=== PATIENT | male | born 1950 | race Caucasian/White ===

== ENCOUNTER 2018-11-27 16:38 | Inpatient (IN) ==
[2018-11-27] MEDS ORDERED: Dextrose 50% in Water 50 ML Vial IV.PUSH ONE (17:03)
--- NOTE | 2018-11-27 17:21 | XR ---
EXAM DATE: 11/27/2018 5:16 PM EST AGE/SEX: 68 years / Male INDICATIONS: Cough. CLINICAL DATA: This is the patient's initial encounter. Patient reports that signs and symptoms have been present for 1 day and indicates a pain score of 0/10. MEDICAL/SURGICAL HISTORY: Cirrhosis. Hepatitis C. Hypertension. Diabetes. None. COMPARISON: No prior exams available for comparison. FINDINGS: Frontal view of the chest demonstrate some patchy opacities in the retrocardiac region; cannot exclud e a nonconsolidative infiltrate. The right lung is clear. The heart is normal in size. Both hemidiaph ragms of the central bronchopulmonary markings are well delineated. CONCLUSION: Findings suggest nonconsolidative patchy infiltrates in the left lower lung. Electronically signed by: Georgi Yi MD Board Certified Radiologist 11/27/2018 5:20 PM EST
[2018-11-27 17:41] LABS: Baso # (Auto) 0.1 th/mm3 (0.0-0.2); Baso % (Auto) 0.6 % (0.0-2.0); Eos # (Auto) 0.2 th/mm3 (0.0-0.4); Eos % (Auto) 2.6 % (0.0-4.0); Hematocrit 35.1 % (39.0-51.0); Lymph # (Auto) 2.3 th/mm3 (1.0-4.8); Lymph % (Auto) 24.3 % (9.0-44.0); Mean Corpuscular Hemoglobin 36.8 pg (27.0-34.0); Mean Platelet Volume 10.8 fL (7.0-11.0); Mono # (Auto) 1.3 th/mm3 (0.0-0.9); Mono % (Auto) 14.1 % (0.0-8.0); Neut # (Auto) 5.5 th/mm3 (1.8-7.7); Neut % (Auto) 58.4 % (16.0-70.0); Platelet Count 105 th/mm3 (150-450); Red Blood Count 3.25 mil/mm3 (4.50-5.90); Red Cell Distribution Width 17.7 % (11.6-17.2); White Blood Count 9.4 th/mm3 (4.0-11.0)
--- NOTE | 2018-11-27 17:42 | US ---
EXAM DATE: 11/27/2018 5:40 PM EST AGE/SEX: 68 years / Male INDICATIONS: Bilateral leg swelling. CLINICAL DATA: This is the patient's initial encounter. Patient reports that signs and symptoms have been present for 4 - 6 days and indicates a pain score of 2/10. MEDICAL/SURGICAL HISTORY: Cirrhosis. Hepatitis C. Hypertension. Diabetes. None. COMPARISON: No prior exams available for comparison. TECHNIQUE: Venous ultrasound of both lower extremities was performed from the inguinal ligament to t he proximal calf. Real-time, color Doppler and spectral tracing, compression and augmentation techni ques were used. FINDINGS: Right Leg: Normal compression of the deep venous system from the inguinal region to the proximal michelle f. No echogenic clot is seen. Normal response of the venous system to augmentation and respiration. Left Leg: Normal compression of the deep venous system from the inguinal region to the proximal calf . No echogenic clot is seen. Normal response of the venous system to augmentation and respiration. Other: None. CONCLUSION: 1. The study is negative for bilateral lower extremity deep venous thrombosis. Electronically signed by: Georgi Yi MD Board Certified Radiologist 11/27/2018 5:41 PM EST
[2018-11-27 17:50] LABS: INR 1.2 Ratio; Prothrombin Time 12.3 sec (9.8-11.6)
[2018-11-27] MEDS ORDERED: Sodium Chlor 0.9% Inj 500 ML IV.SIG SCH (18:00)
--- NOTE | 2018-11-27 18:03 | CT ---
EXAM DATE: 11/27/2018 5:59 PM EST AGE/SEX: 68 years / Male INDICATIONS: Altered mental status CLINICAL DATA: This is the patient's initial encounter. Patient reports that signs and symptoms have been present for 1 day and indicates a pain score of 0/10. MEDICAL/SURGICAL HISTORY: Cirrhosis. Diabetes. Hepatitis C. Hypertension None. RADIATION DOSE: 39.32 CTDI (mGy) COMPARISON: No prior exams available for comparison. TECHNIQUE: CT of the head without contrast. Using automated exposure control and adjustment of the mA and/or kV according to patient size, radiation dose was kept as low as reasonably achievable to ob tain optimal diagnostic quality images. DICOM format image data is available electronically for revi ew and comparison. FINDINGS: Cerebrum: The ventricles are normal for age with mild atrophic change with sulcal and ventricular pr ominence. No evidence of midline shift, mass lesion, hemorrhage or acute infarction. No extraaxial f luid collections are seen. Posterior Fossa: The cerebellum and brainstem are intact. The 4th ventricle is midline. The cerebe llopontine angle is unremarkable. Extracranial: The visualized portion of the orbits is intact. Skull: The calvaria is intact. No evidence of skull fracture. CONCLUSION: 1. Negative exam with no evidence of hemorrhage or mass effect. . Electronically signed by: Girma Aldridge MD Board Certified Radiologist 11/27/2018 6:02 PM EST
[2018-11-27] MEDS ORDERED: Azithromycin Inj 500 MG in Sodium Chlor 0.9% Inj 250 ML IV.SIG ONE (18:08)
[2018-11-27 18:19] LABS: Alanine Aminotransferase 31 U/L (12-78); Albumin 2.3 g/dL (3.4-5.0); Anion Gap 12 meq/L (5-15); Aspartate Aminotransferase 20 U/L (15-37); Blood Urea Nitrogen 77 mg/dL (7-18); Calcium 8.1 mg/dL (8.5-10.1); Carbon Dioxide 20.8 meq/L (21.0-32.0); Chloride 109 meq/L (98-107); Glomerular Filtration Rate 11 mL/min (>89); Glucose,Random 123 mg/dL (74-106); Magnesium 2.8 mg/dL (1.5-2.5); Potassium 4.1 meq/L (3.5-5.1); Sodium 142 meq/L (136-145)
[2018-11-27 18:23] LABS: Alkaline Phosphatase 128 U/L (45-117); Total Protein 6.5 g/dL (6.4-8.2)
[2018-11-27 18:39] LABS: Thyroid Stimulating Hormone 4.03 uIU/mL (0.358-3.740)
[2018-11-27 19:10] LABS: Bacteria,Urine Rare /hpf; Bilirubin,Urine Negative (Negative); Clarity,Urine Clear (Clear); Color,Urine Yellow (Yellw/Straw); Glucose,Urine (UA) Negative (Negative); Leukocyte Esterase,Urine Negative (Negative); Nitrite,Urine Negative (Negative); Specific Gravity,Urine 1.008 (1.002-1.035); Squamous Epithelial Cell,Urine <1 /hpf (0-5)
[2018-11-27 19:19] LABS: Amphetamine Screen,Urine Neg (Neg); Barbiturate Screen,Urine Neg (Neg); Cannabinoid Screen,Urine Pos (Neg); Cocaine Screen,Urine Neg (Neg)
[2018-11-27 19:25] LABS: Opiate Screen,Urine Neg (Neg)
--- NOTE | 2018-11-27 19:27 | ED ---
HPI General Chief complaint: Diabetic Stated complaint: Diabetic/Confusion Time Seen by Provider: 11/27/18 16:42 Source: patient Mode of arrival: ambulatory Limitations: no limitations History of Present Illness HPI narrative: 68 male patient presents to ED for evaluation of altered mental status. His roommate found him unresponsive this afternoon. EMS was able to rouse him with a sternal rub and his blood glucose was 33. He was given an amp of D10 and half a peanut butter sandwich and his blood sugar went up to 139. He is a poor historian and was not able to answer all our questions. He states he has a history of hepatitis C, diabetes and cirrhosis but couldn't remember what medications he takes daily. He states he hasn't been eating regularly and that he smokes both cigarettes and marijuana but no longer drinks. He denies chest pain, nausea, vomiting, and shortness of breath. Denies any pain. Again history is very limited because the patient appears to be altered at this time. He did had a witnessed syncopal episode. Related Data Home Medications Medication Instructions Recorded Confirmed Unable to Obtain Home Meds 11/27/18 11/27/18 Allergies Allergy/AdvReac Type Severity Reaction Status Date / Time acetaminophen AdvReac Severe cirrhosis Verified 11/27/18 20:26 Review of Systems ROS: all other systems reviewed are negative [facility] Medical History Medical History Cirrhosis (Acute) Coronary artery disease (Acute) Diabetes (Acute) HTN (hypertension) (Acute) Hepatitis C (Acute) Surgical History Surgical History Status post hernia repair (Acute) Social History Social History Substance History: Active Abuse Second Hand Smoke Exposure: Yes Smoking Status: Current every day smoker Tobacco Type: Cigarettes How Often Do You Have a Drink Containing Alcohol: Never Recent Travel in [facility] within the Last 8 Weeks: No Recent Out of Country Travel within the Last 8 Weeks: No Immunization History Tetanus Immunization: <5 Years Exam Narrative Exam Narrative: gENERAL: Well-appearing in no distress. SKIN: Focused skin assessment warm/dry. HEAD: Atraumatic. Normocephalic. EYES: Pupils equal and round. No scleral icterus. No injection or drainage. ENT: No nasal bleeding or discharge. Mucous membranes pink and moist. Tongue is midline. No Uvula deviation. NECK: Trachea midline. No JVD. CARDIOVASCULAR: Regular rate and rhythm. No murmur appreciated. RESPIRATORY: No accessory muscle use. Clear to auscultation. Breath sounds equal bilaterally. GASTROINTESTINAL: Abdomen soft, non-tender, nondistended. Hepatic and splenic margins not palpable. MUSCULOSKELETAL: No obvious deformities. No clubbing. No cyanosis. No edema. NEUROLOGICAL: Awake and alert. No obvious cranial nerve deficits. Motor grossly within normal limits. Slowed speech. PSYCHIATRIC: Altered mood and affect; insight and judgment minimal. Course Initial Documented Vital Signs Pulse Rate 54 L 11/27/18 16:47 Respiratory Rate 16 11/27/18 16:47 Blood Pressure 155/109 H 11/27/18 16:47 Pulse Oximetry 100 11/27/18 16:47 Last Documented Vital Signs Temperature 97.7 F 11/29/18 16:00 Pulse Rate 72 11/29/18 16:00 Respiratory Rate 18 11/29/18 16:00 Blood Pressure 149/65 H 11/29/18 16:00 Pulse Oximetry 100 11/29/18 16:00 Medical Decision Making PEDRO Attestation PEDRO supervised visit: Yes Attestation: I, Dr. Guerrero, have reviewed the advance practice practitioner's documentation and am in agreement, met with the patient face to face, made the diagnosis, and the medical decision making was done by me. *My assessment and Findings: Hypoglycemia vs. hepatic encephalopathy vs. dehydration vs. electrolyte abnormality 68yo M with AMS. Found to be hypoglycemic and given amp of D10. Labs reviewed , no leukocytosis. H/H mildly decreased at 12/35.1. BUN/creatinine elevated at 77/5.37. Unknown baseline. Troponin negative. US showed negative DVT. CT brain negative. CXR showed patchy infiltrates in left lung. Pt given antibiotics. Ammonia elevated at 110. Pt given lactulose. UA showed WBC 3. Culture not indicated. Pt to be admitted for AMS secondary to hepatic encephalopathy and CAREN. MDM Narrative Medical decision making narrative: 68-year-old male who presents to the ED for evaluation of altered mental status. Patient was properly examined and was found to have signs and symptoms consistent with altered mental status. Labs and imaging ordered. Labs and imaging show what appears to be significant elevated ammonia as well as what appears to be kidney failure. Also possible pneumonia per chest x-ray. At this time patient will start antibiotics. Patient will be admitted for further evaluation and treatment. Patient was given fluids here. Patient was given lactulose as well. Case discussed with my attending Dr. Guerrero agrees with this plan. Case discussed with Dr. Louie who agrees admission to her service. Medical Screen Exam Complete: Yes Emergency Medical Condition: Yes Differential Diagnosis Differential Diagnosis: Altered mental status versus hepatic encephalopathy versus ACS versus electrolyte normality versus sepsis Medical Records Medical records reviewed: Yes I reviewed the patient's medical records. Lab Data Lab results reviewed: Yes I reviewed the patient's lab results. Result diagrams: 11/29/18 10:21 11/29/18 10:21 Lab Results 11/27/18 11/27/18 11/27/18 Range/Units 17:05 17:05 17:05 WBC (4.0-11.0) th/mm3 RBC (4.50-5.90) mil/mm3 Hgb (13.0-17.0) gm/dL Hct (39.0-51.0) % MCV (80.0-100.0) fL MCH (27.0-34.0) pg MCHC (32.0-36.0) % RDW (11.6-17.2) % Plt Count (150-450) th/mm3 MPV (7.0-11.0) fL Prelim Diff (Auto) Neut % (Auto) (16.0-70.0) % Lymph % (Auto) (9.0-44.0) % [place] % (Auto) (0.0-8.0) % Eos % (Auto) (0.0-4.0) % Baso % (Auto) (0.0-2.0) % Neut # (Auto) (1.8-7.7) th/mm3 Lymph # (Auto) (1.0-4.8) th/mm3 [place] # (Auto) (0.0-0.9) th/mm3 Eos # (Auto) (0.0-0.4) th/mm3 Baso # (Auto) (0.0-0.2) th/mm3 WBC Differential Diff Scan Differential Comment Toxic Granulation (None) Platelet Estimate (Normal) Platelet Morphology (Normal) PT 12.3 H (9.8-11.6) sec INR 1.2 Ratio Sodium (136-145) meq/L Potassium (3.5-5.1) meq/L Chloride (98-107) meq/L Carbon Dioxide (21.0-32.0) meq/L Anion Gap (5-15) meq/L BUN (7-18) mg/dL Creatinine (0.60-1.30) mg/dL Estimated GFR (>89) mL/min POC Glucose (68-110) mg/dl Random Glucose Cancelled Lactic Acid (0.4-2.0) mmol/L Calcium (8.5-10.1) mg/dL Phosphorus (2.5-4.9) mg/dL Magnesium (1.5-2.5) mg/dL Total Bilirubin (0.2-1.0) mg/dL AST (15-37) U/L ALT (12-78) U/L Alkaline Phosphatase (45-117) U/L Ammonia 110 H (11-32) mcmol/L Total Creatine Kinase 57 (39-308) U/L Troponin I (0.02-0.05) ng/mL B-Natriuretic Peptide (0-100) pg/mL Total Protein (6.4-8.2) g/dL Albumin (3.4-5.0) g/dL TSH 4.030 H (0.358-3.740) uIU/mL Urine Color (Yellw/Straw) Urine Clarity (Clear) Urine pH (5.0-8.5) Ur Specific [place] (1.002-1.035) Urine Protein (Neg-Trace) mg/dL Urine Glucose (UA) (Negative) mg/dL Urine Ketones (Negative) mg/dL Urine Occult Blood (Negative) Urine Nitrate (Negative) Urine Bilirubin (Negative) Urine Urobilinogen (Less than 2) mg/dL Ur Leukocyte Esterase (Negative) Urine RBC (0-3) /hpf Urine WBC (0-5) /hpf Ur Squamous Epith Cells (0-5) /hpf Urine Bacteria (None) /hpf Micro UA Comment Ur Microscopic Review Urine Culture Comments Urine Osmolality (300-1300) mosm/kg Ur Random Creatinine (27-300) mg/dL Ur Random Sodium meq/L Salicylates (2.8-20.0) mg/dL Urine Opiates Screen (Neg) Acetaminophen (10.0-30.0) mcg/mL Ur Barbiturates Screen (Neg) Ur Amphetamines Screen (Neg) U Benzodiazepines Scrn (Neg) Urine Cocaine Screen (Neg) U Cannabinoids Screen (Neg) Serum Alcohol (0-5) mg/dL Complement C3 (90-180) mg/dL Complement C4 (10-40) mg/dL 11/27/18 11/27/18 11/27/18 Range/Units 17:05 17:05 17:05 WBC 9.4 (4.0-11.0) th/mm3 RBC 3.25 L (4.50-5.90) mil/mm3 Hgb 12.0 L (13.0-17.0) gm/dL Hct 35.1 L (39.0-51.0) % MCV 108.0 H (80.0-100.0) fL MCH 36.8 H (27.0-34.0) pg MCHC 34.0 (32.0-36.0) % RDW 17.7 H (11.6-17.2) % Plt Count 105 L (150-450) th/mm3 MPV 10.8 (7.0-11.0) fL Prelim Diff (Auto) Neut % (Auto) 58.4 (16.0-70.0) % Lymph % (Auto) 24.3 (9.0-44.0) % [place] % (Auto) 14.1 H (0.0-8.0) % Eos % (Auto) 2.6 (0.0-4.0) % Baso % (Auto) 0.6 (0.0-2.0) % Neut # (Auto) 5.5 (1.8-7.7) th/mm3 Lymph # (Auto) 2.3 (1.0-4.8) th/mm3 [place] # (Auto) 1.3 H (0.0-0.9) th/mm3 Eos # (Auto) 0.2 (0.0-0.4) th/mm3 Baso # (Auto) 0.1 (0.0-0.2) th/mm3 WBC Differential . Diff Scan Differential Comment Auto diff final Toxic Granulation (None) Platelet Estimate (Normal) Platelet Morphology (Normal) PT (9.8-11.6) sec INR Ratio Sodium 142 (136-145) meq/L Potassium 4.1 (3.5-5.1) meq/L Chloride 109 H (98-107) meq/L Carbon Dioxide 20.8 L (21.0-32.0) meq/L Anion Gap 12 (5-15) meq/L BUN 77 H (7-18) mg/dL Creatinine 5.37 H (0.60-1.30) mg/dL Estimated GFR 11 L (>89) mL/min POC Glucose (68-110) mg/dl Random Glucose 123 H Lactic Acid (0.4-2.0) mmol/L Calcium 8.1 L (8.5-10.1) mg/dL Phosphorus (2.5-4.9) mg/dL Magnesium 2.8 H (1.5-2.5) mg/dL Total Bilirubin 1.5 H (0.2-1.0) mg/dL AST 20 (15-37) U/L ALT 31 (12-78) U/L Alkaline Phosphatase 128 H (45-117) U/L Ammonia (11-32) mcmol/L Total Creatine Kinase (39-308) U/L Troponin I Less than 0.02 L (0.02-0.05) ng/mL B-Natriuretic Peptide 168 H (0-100) pg/mL Total Protein 6.5 (6.4-8.2) g/dL Albumin 2.3 L (3.4-5.0) g/dL TSH (0.358-3.740) uIU/mL Urine Color (Yellw/Straw) Urine Clarity (Clear) Urine pH (5.0-8.5) Ur Specific [place] (1.002-1.035) Urine Protein (Neg-Trace) mg/dL Urine Glucose (UA) (Negative) mg/dL Urine Ketones (Negative) mg/dL Urine Occult Blood (Negative) Urine Nitrate (Negative) Urine Bilirubin (Negative) Urine Urobilinogen (Less than 2) mg/dL Ur Leukocyte Esterase (Negative) Urine RBC (0-3) /hpf Urine WBC (0-5) /hpf Ur Squamous Epith Cells (0-5) /hpf Urine Bacteria (None) /hpf Micro UA Comment Ur Microscopic Review Urine Culture Comments Urine Osmolality (300-1300) mosm/kg Ur Random Creatinine (27-300) mg/dL Ur Random Sodium meq/L Salicylates (2.8-20.0) mg/dL Urine Opiates Screen (Neg) Acetaminophen (10.0-30.0) mcg/mL Ur Barbiturates Screen (Neg) Ur Amphetamines Screen (Neg) U Benzodiazepines Scrn (Neg) Urine Cocaine Screen (Neg) U Cannabinoids Screen (Neg) Serum Alcohol (0-5) mg/dL Complement C3 (90-180) mg/dL Complement C4 (10-40) mg/dL 11/27/18 11/27/18 11/27/18 Range/Units 17:05 17:05 17:05 WBC (4.0-11.0) th/mm3 RBC (4.50-5.90) mil/mm3 Hgb (13.0-17.0) gm/dL Hct (39.0-51.0) % MCV (80.0-100.0) fL MCH (27.0-34.0) pg MCHC (32.0-36.0) % RDW (11.6-17.2) % Plt Count (150-450) th/mm3 MPV (7.0-11.0) fL Prelim Diff (Auto) Neut % (Auto) (16.0-70.0) % Lymph % (Auto) (9.0-44.0) % [place] % (Auto) (0.0-8.0) % Eos % (Auto) (0.0-4.0) % Baso % (Auto) (0.0-2.0) % Neut # (Auto) (1.8-7.7) th/mm3 Lymph # (Auto) (1.0-4.8) th/mm3 [place] # (Auto) (0.0-0.9) th/mm3 Eos # (Auto) (0.0-0.4) th/mm3 Baso # (Auto) (0.0-0.2) th/mm3 WBC Differential Diff Scan Differential Comment Toxic Granulation (None) Platelet Estimate (Normal) Platelet Morphology (Normal) PT (9.8-11.6) sec INR Ratio Sodium (136-145) meq/L Potassium (3.5-5.1) meq/L Chloride (98-107) meq/L Carbon Dioxide (21.0-32.0) meq/L Anion Gap (5-15) meq/L BUN (7-18) mg/dL Creatinine (0.60-1.30) mg/dL Estimated GFR (>89) mL/min POC Glucose (68-110) mg/dl Random Glucose Lactic Acid 1.7 (0.4-2.0) mmol/L Calcium (8.5-10.1) mg/dL Phosphorus (2.5-4.9) mg/dL Magnesium (1.5-2.5) mg/dL Total Bilirubin (0.2-1.0) mg/dL AST (15-37) U/L ALT (12-78) U/L Alkaline Phosphatase (45-117) U/L Ammonia (11-32) mcmol/L Total Creatine Kinase (39-308) U/L Troponin I (0.02-0.05) ng/mL B-Natriuretic Peptide (0-100) pg/mL Total Protein (6.4-8.2) g/dL Albumin (3.4-5.0) g/dL TSH (0.358-3.740) uIU/mL Urine Color (Yellw/Straw) Urine Clarity (Clear) Urine pH (5.0-8.5) Ur Specific [place] (1.002-1.035) Urine Protein (Neg-Trace) mg/dL Urine Glucose (UA) (Negative) mg/dL Urine Ketones (Negative) mg/dL Urine Occult Blood (Negative) Urine Nitrate (Negative) Urine Bilirubin (Negative) Urine Urobilinogen (Less than 2) mg/dL Ur Leukocyte Esterase (Negative) Urine RBC (0-3) /hpf Urine WBC (0-5) /hpf Ur Squamous Epith Cells (0-5) /hpf Urine Bacteria (None) /hpf Micro UA Comment Ur Microscopic Review Urine Culture Comments Urine Osmolality (300-1300) mosm/kg Ur Random Creatinine (27-300) mg/dL Ur Random Sodium meq/L Salicylates Less than 1.7 L (2.8-20.0) mg/dL Urine Opiates Screen (Neg) Acetaminophen Less than 2.0 L (10.0-30.0) mcg/mL Ur Barbiturates Screen (Neg) Ur Amphetamines Screen (Neg) U Benzodiazepines Scrn (Neg) Urine Cocaine Screen (Neg) U Cannabinoids Screen (Neg) Serum Alcohol Less than 3 (0-5) mg/dL Complement C3 (90-180) mg/dL Complement C4 (10-40) mg/dL 11/27/18 11/27/18 11/27/18 Range/Units 18:15 18:36 18:36 WBC (4.0-11.0) th/mm3 RBC (4.50-5.90) mil/mm3 Hgb (13.0-17.0) gm/dL Hct (39.0-51.0) % MCV (80.0-100.0) fL MCH (27.0-34.0) pg MCHC (32.0-36.0) % RDW (11.6-17.2) % Plt Count (150-450) th/mm3 MPV (7.0-11.0) fL Prelim Diff (Auto) Neut % (Auto) (16.0-70.0) % Lymph % (Auto) (9.0-44.0) % [place] % (Auto) (0.0-8.0) % Eos % (Auto) (0.0-4.0) % Baso % (Auto) (0.0-2.0) % Neut # (Auto) (1.8-7.7) th/mm3 Lymph # (Auto) (1.0-4.8) th/mm3 [place] # (Auto) (0.0-0.9) th/mm3 Eos # (Auto) (0.0-0.4) th/mm3 Baso # (Auto) (0.0-0.2) th/mm3 WBC Differential Diff Scan Differential Comment Toxic Granulation (None) Platelet Estimate (Normal) Platelet Morphology (Normal) PT (9.8-11.6) sec INR Ratio Sodium (136-145) meq/L Potassium (3.5-5.1) meq/L Chloride (98-107) meq/L Carbon Dioxide (21.0-32.0) meq/L Anion Gap (5-15) meq/L BUN (7-18) mg/dL Creatinine (0.60-1.30) mg/dL Estimated GFR (>89) mL/min POC Glucose 146 H (68-110) mg/dl Random Glucose Lactic Acid (0.4-2.0) mmol/L Calcium (8.5-10.1) mg/dL Phosphorus (2.5-4.9) mg/dL Magnesium (1.5-2.5) mg/dL Total Bilirubin (0.2-1.0) mg/dL AST (15-37) U/L ALT (12-78) U/L Alkaline Phosphatase (45-117) U/L Ammonia (11-32) mcmol/L Total Creatine Kinase (39-308) U/L Troponin I (0.02-0.05) ng/mL B-Natriuretic Peptide (0-100) pg/mL Total Protein (6.4-8.2) g/dL Albumin (3.4-5.0) g/dL TSH (0.358-3.740) uIU/mL Urine Color Yellow (Yellw/Straw) Urine Clarity Clear (Clear) Urine pH 6.0 (5.0-8.5) Ur Specific [place] 1.008 (1.002-1.035) Urine Protein Negative (Neg-Trace) mg/dL Urine Glucose (UA) Negative (Negative) mg/dL Urine Ketones Negative (Negative) mg/dL Urine Occult Blood Negative (Negative) Urine Nitrate Negative (Negative) Urine Bilirubin Negative (Negative) Urine Urobilinogen Less than 2 (Less than 2) mg/dL Ur Leukocyte Esterase Negative (Negative) Urine RBC 1 (0-3) /hpf Urine WBC 3 (0-5) /hpf Ur Squamous Epith Cells <1 (0-5) /hpf Urine Bacteria Rare H (None) /hpf Micro UA Comment Culture not ind Ur Microscopic Review Not Reportable Urine Culture Comments Culture not ind Urine Osmolality (300-1300) mosm/kg Ur Random Creatinine (27-300) mg/dL Ur Random Sodium meq/L Salicylates (2.8-20.0) mg/dL Urine Opiates Screen Neg (Neg) Acetaminophen (10.0-30.0) mcg/mL Ur Barbiturates Screen Neg (Neg) Ur Amphetamines Screen Neg (Neg) U Benzodiazepines Scrn Neg (Neg) Urine Cocaine Screen Neg (Neg) U Cannabinoids Screen Pos H (Neg) Serum Alcohol (0-5) mg/dL Complement C3 (90-180) mg/dL Complement C4 (10-40) mg/dL 11/27/18 11/28/18 11/28/18 Range/Units 20:16 02:06 06:00 WBC 7.9 (4.0-11.0) th/mm3 RBC 3.18 L (4.50-5.90) mil/mm3 Hgb 11.9 L (13.0-17.0) gm/dL Hct 34.6 L (39.0-51.0) % MCV 108.8 H (80.0-100.0) fL MCH 37.5 H (27.0-34.0) pg MCHC 34.4 (32.0-36.0) % RDW 18.0 H (11.6-17.2) % Plt Count 85 L (150-450) th/mm3 MPV 11.1 H (7.0-11.0) fL Prelim Diff (Auto) Board Hammer [employer] Neut % (Auto) 66.1 (16.0-70.0) % Lymph % (Auto) 22.3 (9.0-44.0) % [place] % (Auto) 9.8 H (0.0-8.0) % Eos % (Auto) 1.3 (0.0-4.0) % Baso % (Auto) 0.5 (0.0-2.0) % Neut # (Auto) 5.2 (1.8-7.7) th/mm3 Lymph # (Auto) 1.8 (1.0-4.8) th/mm3 [place] # (Auto) 0.8 (0.0-0.9) th/mm3 Eos # (Auto) 0.1 (0.0-0.4) th/mm3 Baso # (Auto) 0.0 (0.0-0.2) th/mm3 WBC Differential . Diff Scan Differential Comment Auto diff final Toxic Granulation (None) Platelet Estimate (Normal) Platelet Morphology (Normal) PT (9.8-11.6) sec INR Ratio Sodium (136-145) meq/L Potassium (3.5-5.1) meq/L Chloride (98-107) meq/L Carbon Dioxide (21.0-32.0) meq/L Anion Gap (5-15) meq/L BUN (7-18) mg/dL Creatinine (0.60-1.30) mg/dL Estimated GFR (>89) mL/min POC Glucose 167 H 118 H (68-110) mg/dl Random Glucose Lactic Acid (0.4-2.0) mmol/L Calcium (8.5-10.1) mg/dL Phosphorus (2.5-4.9) mg/dL Magnesium (1.5-2.5) mg/dL Total Bilirubin (0.2-1.0) mg/dL AST (15-37) U/L ALT (12-78) U/L Alkaline Phosphatase (45-117) U/L Ammonia (11-32) mcmol/L Total Creatine Kinase (39-308) U/L Troponin I (0.02-0.05) ng/mL B-Natriuretic Peptide (0-100) pg/mL Total Protein (6.4-8.2) g/dL Albumin (3.4-5.0) g/dL TSH (0.358-3.740) uIU/mL Urine Color (Yellw/Straw) Urine Clarity (Clear) Urine pH (5.0-8.5) Ur Specific [place] (1.002-1.035) Urine Protein (Neg-Trace) mg/dL Urine Glucose (UA) (Negative) mg/dL Urine Ketones (Negative) mg/dL Urine Occult Blood (Negative) Urine Nitrate (Negative) Urine Bilirubin (Negative) Urine Urobilinogen (Less than 2) mg/dL Ur Leukocyte Esterase (Negative) Urine RBC (0-3) /hpf Urine WBC (0-5) /hpf Ur Squamous Epith Cells (0-5) /hpf Urine Bacteria (None) /hpf Micro UA Comment Ur Microscopic Review Urine Culture Comments Urine Osmolality (300-1300) mosm/kg Ur Random Creatinine (27-300) mg/dL Ur Random Sodium meq/L Salicylates (2.8-20.0) mg/dL Urine Opiates Screen (Neg) Acetaminophen (10.0-30.0) mcg/mL Ur Barbiturates Screen (Neg) Ur Amphetamines Screen (Neg) U Benzodiazepines Scrn (Neg) Urine Cocaine Screen (Neg) U Cannabinoids Screen (Neg) Serum Alcohol (0-5) mg/dL Complement C3 (90-180) mg/dL Complement C4 (10-40) mg/dL 11/28/18 11/28/18 11/28/18 Range/Units 06:00 07:45 12:21 WBC (4.0-11.0) th/mm3 RBC (4.50-5.90) mil/mm3 Hgb (13.0-17.0) gm/dL Hct (39.0-51.0) % MCV (80.0-100.0) fL MCH (27.0-34.0) pg MCHC (32.0-36.0) % RDW (11.6-17.2) % Plt Count (150-450) th/mm3 MPV (7.0-11.0) fL Prelim Diff (Auto) Neut % (Auto) (16.0-70.0) % Lymph % (Auto) (9.0-44.0) % [place] % (Auto) (0.0-8.0) % Eos % (Auto) (0.0-4.0) % Baso % (Auto) (0.0-2.0) % Neut # (Auto) (1.8-7.7) th/mm3 Lymph # (Auto) (1.0-4.8) th/mm3 [place] # (Auto) (0.0-0.9) th/mm3 Eos # (Auto) (0.0-0.4) th/mm3 Baso # (Auto) (0.0-0.2) th/mm3 WBC Differential Diff Scan Differential Comment Toxic Granulation (None) Platelet Estimate (Normal) Platelet Morphology (Normal) PT (9.8-11.6) sec INR Ratio Sodium 144 (136-145) meq/L Potassium 4.4 (3.5-5.1) meq/L Chloride 112 H (98-107) meq/L Carbon Dioxide 20.7 L (21.0-32.0) meq/L Anion Gap 11 (5-15) meq/L BUN 76 H (7-18) mg/dL Creatinine 5.22 H (0.60-1.30) mg/dL Estimated GFR 11 L (>89) mL/min POC Glucose 70 (68-110) mg/dl Random Glucose 69 L Lactic Acid (0.4-2.0) mmol/L Calcium 8.4 L (8.5-10.1) mg/dL Phosphorus (2.5-4.9) mg/dL Magnesium (1.5-2.5) mg/dL Total Bilirubin 1.4 H (0.2-1.0) mg/dL AST 18 (15-37) U/L ALT 28 (12-78) U/L Alkaline Phosphatase 117 (45-117) U/L Ammonia 100 H (11-32) mcmol/L Total Creatine Kinase (39-308) U/L Troponin I (0.02-0.05) ng/mL B-Natriuretic Peptide (0-100) pg/mL Total Protein 6.0 L (6.4-8.2) g/dL Albumin 2.0 L (3.4-5.0) g/dL TSH (0.358-3.740) uIU/mL Urine Color (Yellw/Straw) Urine Clarity (Clear) Urine pH (5.0-8.5) Ur Specific [place] (1.002-1.035) Urine Protein (Neg-Trace) mg/dL Urine Glucose (UA) (Negative) mg/dL Urine Ketones (Negative) mg/dL Urine Occult Blood (Negative) Urine Nitrate (Negative) Urine Bilirubin (Negative) Urine Urobilinogen (Less than 2) mg/dL Ur Leukocyte Esterase (Negative) Urine RBC (0-3) /hpf Urine WBC (0-5) /hpf Ur Squamous Epith Cells (0-5) /hpf Urine Bacteria (None) /hpf Micro UA Comment Ur Microscopic Review Urine Culture Comments Urine Osmolality (300-1300) mosm/kg Ur Random Creatinine (27-300) mg/dL Ur Random Sodium meq/L Salicylates (2.8-20.0) mg/dL Urine Opiates Screen (Neg) Acetaminophen (10.0-30.0) mcg/mL Ur Barbiturates Screen (Neg) Ur Amphetamines Screen (Neg) U Benzodiazepines Scrn (Neg) Urine Cocaine Screen (Neg) U Cannabinoids Screen (Neg) Serum Alcohol (0-5) mg/dL Complement C3 (90-180) mg/dL Complement C4 (10-40) mg/dL 11/28/18 11/28/18 11/28/18 Range/Units 12:56 16:10 16:10 WBC (4.0-11.0) th/mm3 RBC (4.50-5.90) mil/mm3 Hgb (13.0-17.0) gm/dL Hct (39.0-51.0) % MCV (80.0-100.0) fL MCH (27.0-34.0) pg MCHC (32.0-36.0) % RDW (11.6-17.2) % Plt Count (150-450) th/mm3 MPV (7.0-11.0) fL Prelim Diff (Auto) Neut % (Auto) (16.0-70.0) % Lymph % (Auto) (9.0-44.0) % [place] % (Auto) (0.0-8.0) % Eos % (Auto) (0.0-4.0) % Baso % (Auto) (0.0-2.0) % Neut # (Auto) (1.8-7.7) th/mm3 Lymph # (Auto) (1.0-4.8) th/mm3 [place] # (Auto) (0.0-0.9) th/mm3 Eos # (Auto) (0.0-0.4) th/mm3 Baso # (Auto) (0.0-0.2) th/mm3 WBC Differential Diff Scan Differential Comment Toxic Granulation (None) Platelet Estimate (Normal) Platelet Morphology (Normal) PT (9.8-11.6) sec INR Ratio Sodium (136-145) meq/L Potassium (3.5-5.1) meq/L Chloride (98-107) meq/L Carbon Dioxide (21.0-32.0) meq/L Anion Gap (5-15) meq/L BUN (7-18) mg/dL Creatinine (0.60-1.30) mg/dL Estimated GFR (>89) mL/min POC Glucose 255 H (68-110) mg/dl Random Glucose Lactic Acid (0.4-2.0) mmol/L Calcium (8.5-10.1) mg/dL Phosphorus (2.5-4.9) mg/dL Magnesium (1.5-2.5) mg/dL Total Bilirubin (0.2-1.0) mg/dL AST (15-37) U/L ALT (12-78) U/L Alkaline Phosphatase (45-117) U/L Ammonia (11-32) mcmol/L Total Creatine Kinase (39-308) U/L Troponin I (0.02-0.05) ng/mL B-Natriuretic Peptide (0-100) pg/mL Total Protein (6.4-8.2) g/dL Albumin (3.4-5.0) g/dL TSH (0.358-3.740) uIU/mL Urine Color (Yellw/Straw) Urine Clarity (Clear) Urine pH (5.0-8.5) Ur Specific [place] (1.002-1.035) Urine Protein (Neg-Trace) mg/dL Urine Glucose (UA) (Negative) mg/dL Urine Ketones (Negative) mg/dL Urine Occult Blood (Negative) Urine Nitrate (Negative) Urine Bilirubin (Negative) Urine Urobilinogen (Less than 2) mg/dL Ur Leukocyte Esterase (Negative) Urine RBC (0-3) /hpf Urine WBC (0-5) /hpf Ur Squamous Epith Cells (0-5) /hpf Urine Bacteria (None) /hpf Micro UA Comment Ur Microscopic Review Urine Culture Comments Urine Osmolality 359 (300-1300) mosm/kg Ur Random Creatinine 128 (27-300) mg/dL Ur Random Sodium 7 meq/L Salicylates (2.8-20.0) mg/dL Urine Opiates Screen (Neg) Acetaminophen (10.0-30.0) mcg/mL Ur Barbiturates Screen (Neg) Ur Amphetamines Screen (Neg) U Benzodiazepines Scrn (Neg) Urine Cocaine Screen (Neg) U Cannabinoids Screen (Neg) Serum Alcohol (0-5) mg/dL Complement C3 (90-180) mg/dL Complement C4 (10-40) mg/dL 11/28/18 11/28/18 11/29/18 Range/Units 16:15 20:15 03:10 WBC (4.0-11.0) th/mm3 RBC (4.50-5.90) mil/mm3 Hgb (13.0-17.0) gm/dL Hct (39.0-51.0) % MCV (80.0-100.0) fL MCH (27.0-34.0) pg MCHC (32.0-36.0) % RDW (11.6-17.2) % Plt Count (150-450) th/mm3 MPV (7.0-11.0) fL Prelim Diff (Auto) Neut % (Auto) (16.0-70.0) % Lymph % (Auto) (9.0-44.0) % [place] % (Auto) (0.0-8.0) % Eos % (Auto) (0.0-4.0) % Baso % (Auto) (0.0-2.0) % Neut # (Auto) (1.8-7.7) th/mm3 Lymph # (Auto) (1.0-4.8) th/mm3 [place] # (Auto) (0.0-0.9) th/mm3 Eos # (Auto) (0.0-0.4) th/mm3 Baso # (Auto) (0.0-0.2) th/mm3 WBC Differential Diff Scan Differential Comment Toxic Granulation (None) Platelet Estimate (Normal) Platelet Morphology (Normal) PT (9.8-11.6) sec INR Ratio Sodium (136-145) meq/L Potassium (3.5-5.1) meq/L Chloride (98-107) meq/L Carbon Dioxide (21.0-32.0) meq/L Anion Gap (5-15) meq/L BUN (7-18) mg/dL Creatinine (0.60-1.30) mg/dL Estimated GFR (>89) mL/min POC Glucose 89 170 H 111 H (68-110) mg/dl Random Glucose Lactic Acid (0.4-2.0) mmol/L Calcium (8.5-10.1) mg/dL Phosphorus (2.5-4.9) mg/dL Magnesium (1.5-2.5) mg/dL Total Bilirubin (0.2-1.0) mg/dL AST (15-37) U/L ALT (12-78) U/L Alkaline Phosphatase (45-117) U/L Ammonia (11-32) mcmol/L Total Creatine Kinase (39-308) U/L Troponin I (0.02-0.05) ng/mL B-Natriuretic Peptide (0-100) pg/mL Total Protein (6.4-8.2) g/dL Albumin (3.4-5.0) g/dL TSH (0.358-3.740) uIU/mL Urine Color (Yellw/Straw) Urine Clarity (Clear) Urine pH (5.0-8.5) Ur Specific [place] (1.002-1.035) Urine Protein (Neg-Trace) mg/dL Urine Glucose (UA) (Negative) mg/dL Urine Ketones (Negative) mg/dL Urine Occult Blood (Negative) Urine Nitrate (Negative) Urine Bilirubin (Negative) Urine Urobilinogen (Less than 2) mg/dL Ur Leukocyte Esterase (Negative) Urine RBC (0-3) /hpf Urine WBC (0-5) /hpf Ur Squamous Epith Cells (0-5) /hpf Urine Bacteria (None) /hpf Micro UA Comment Ur Microscopic Review Urine Culture Comments Urine Osmolality (300-1300) mosm/kg Ur Random Creatinine (27-300) mg/dL Ur Random Sodium meq/L Salicylates (2.8-20.0) mg/dL Urine Opiates Screen (Neg) Acetaminophen (10.0-30.0) mcg/mL Ur Barbiturates Screen (Neg) Ur Amphetamines Screen (Neg) U Benzodiazepines Scrn (Neg) Urine Cocaine Screen (Neg) U Cannabinoids Screen (Neg) Serum Alcohol (0-5) mg/dL Complement C3 (90-180) mg/dL Complement C4 (10-40) mg/dL 11/29/18 11/29/18 11/29/18 Range/Units 07:29 10:21 10:21 WBC 10.0 (4.0-11.0) th/mm3 RBC 2.79 L (4.50-5.90) mil/mm3 Hgb 10.4 L (13.0-17.0) gm/dL Hct 30.2 L (39.0-51.0) % MCV 108.3 H (80.0-100.0) fL MCH 37.3 H (27.0-34.0) pg MCHC 34.5 (32.0-36.0) % RDW 17.8 H (11.6-17.2) % Plt Count 88 L (150-450) th/mm3 MPV 10.6 (7.0-11.0) fL Prelim Diff (Auto) Slide review pending Neut % (Auto) 68.3 (16.0-70.0) % Lymph % (Auto) 22.7 (9.0-44.0) % [place] % (Auto) 7.7 (0.0-8.0) % Eos % (Auto) 0.9 (0.0-4.0) % Baso % (Auto) 0.4 (0.0-2.0) % Neut # (Auto) 6.8 (1.8-7.7) th/mm3 Lymph # (Auto) 2.3 (1.0-4.8) th/mm3 [place] # (Auto) 0.8 (0.0-0.9) th/mm3 Eos # (Auto) 0.1 (0.0-0.4) th/mm3 Baso # (Auto) 0.0 (0.0-0.2) th/mm3 WBC Differential . Diff Scan Auto diff confirmed Differential Comment . Toxic Granulation 1+ H (None) Platelet Estimate Low L (Normal) Platelet Morphology Enlarged H (Normal) PT (9.8-11.6) sec INR Ratio Sodium 144 (136-145) meq/L Potassium 3.9 (3.5-5.1) meq/L Chloride 112 H (98-107) meq/L Carbon Dioxide 18.8 L (21.0-32.0) meq/L Anion Gap 13 (5-15) meq/L BUN 77 H (7-18) mg/dL Creatinine 5.54 H (0.60-1.30) mg/dL Estimated GFR 10 L (>89) mL/min POC Glucose 90 (68-110) mg/dl Random Glucose 134 H Lactic Acid (0.4-2.0) mmol/L Calcium 7.8 L (8.5-10.1) mg/dL Phosphorus 5.8 H (2.5-4.9) mg/dL Magnesium (1.5-2.5) mg/dL Total Bilirubin (0.2-1.0) mg/dL AST (15-37) U/L ALT (12-78) U/L Alkaline Phosphatase (45-117) U/L Ammonia (11-32) mcmol/L Total Creatine Kinase 101 (39-308) U/L Troponin I (0.02-0.05) ng/mL B-Natriuretic Peptide (0-100) pg/mL Total Protein (6.4-8.2) g/dL Albumin 2.1 L (3.4-5.0) g/dL TSH (0.358-3.740) uIU/mL Urine Color (Yellw/Straw) Urine Clarity (Clear) Urine pH (5.0-8.5) Ur Specific [place] (1.002-1.035) Urine Protein (Neg-Trace) mg/dL Urine Glucose (UA) (Negative) mg/dL Urine Ketones (Negative) mg/dL Urine Occult Blood (Negative) Urine Nitrate (Negative) Urine Bilirubin (Negative) Urine Urobilinogen (Less than 2) mg/dL Ur Leukocyte Esterase (Negative) Urine RBC (0-3) /hpf Urine WBC (0-5) /hpf Ur Squamous Epith Cells (0-5) /hpf Urine Bacteria (None) /hpf Micro UA Comment Ur Microscopic Review Urine Culture Comments Urine Osmolality (300-1300) mosm/kg Ur Random Creatinine (27-300) mg/dL Ur Random Sodium meq/L Salicylates (2.8-20.0) mg/dL Urine Opiates Screen (Neg) Acetaminophen (10.0-30.0) mcg/mL Ur Barbiturates Screen (Neg) Ur Amphetamines Screen (Neg) U Benzodiazepines Scrn (Neg) Urine Cocaine Screen (Neg) U Cannabinoids Screen (Neg) Serum Alcohol (0-5) mg/dL Complement C3 46 L (90-180) mg/dL Complement C4 16 (10-40) mg/dL 11/29/18 11/29/18 11/29/18 Range/Units 10:21 12:15 16:19 WBC (4.0-11.0) th/mm3 RBC (4.50-5.90) mil/mm3 Hgb (13.0-17.0) gm/dL Hct (39.0-51.0) % MCV (80.0-100.0) fL MCH (27.0-34.0) pg MCHC (32.0-36.0) % RDW (11.6-17.2) % Plt Count (150-450) th/mm3 MPV (7.0-11.0) fL Prelim Diff (Auto) Neut % (Auto) (16.0-70.0) % Lymph % (Auto) (9.0-44.0) % [place] % (Auto) (0.0-8.0) % Eos % (Auto) (0.0-4.0) % Baso % (Auto) (0.0-2.0) % Neut # (Auto) (1.8-7.7) th/mm3 Lymph # (Auto) (1.0-4.8) th/mm3 [place] # (Auto) (0.0-0.9) th/mm3 Eos # (Auto) (0.0-0.4) th/mm3 Baso # (Auto) (0.0-0.2) th/mm3 WBC Differential Diff Scan Differential Comment Toxic Granulation (None) Platelet Estimate (Normal) Platelet Morphology (Normal) PT (9.8-11.6) sec INR Ratio Sodium Cancelled (136-145) meq/L Potassium Cancelled (3.5-5.1) meq/L Chloride Cancelled (98-107) meq/L Carbon Dioxide Cancelled (21.0-32.0) meq/L Anion Gap Cancelled (5-15) meq/L BUN Cancelled (7-18) mg/dL Creatinine Cancelled (0.60-1.30) mg/dL Estimated GFR Cancelled (>89) mL/min POC Glucose 154 H 146 H (68-110) mg/dl Random Glucose Cancelled Lactic Acid (0.4-2.0) mmol/L Calcium Cancelled (8.5-10.1) mg/dL Phosphorus (2.5-4.9) mg/dL Magnesium (1.5-2.5) mg/dL Total Bilirubin (0.2-1.0) mg/dL AST (15-37) U/L ALT (12-78) U/L Alkaline Phosphatase (45-117) U/L Ammonia (11-32) mcmol/L Total Creatine Kinase (39-308) U/L Troponin I (0.02-0.05) ng/mL B-Natriuretic Peptide (0-100) pg/mL Total Protein (6.4-8.2) g/dL Albumin (3.4-5.0) g/dL TSH (0.358-3.740) uIU/mL Urine Color (Yellw/Straw) Urine Clarity (Clear) Urine pH (5.0-8.5) Ur Specific [place] (1.002-1.035) Urine Protein (Neg-Trace) mg/dL Urine Glucose (UA) (Negative) mg/dL Urine Ketones (Negative) mg/dL Urine Occult Blood (Negative) Urine Nitrate (Negative) Urine Bilirubin (Negative) Urine Urobilinogen (Less than 2) mg/dL Ur Leukocyte Esterase (Negative) Urine RBC (0-3) /hpf Urine WBC (0-5) /hpf Ur Squamous Epith Cells (0-5) /hpf Urine Bacteria (None) /hpf Micro UA Comment Ur Microscopic Review Urine Culture Comments Urine Osmolality (300-1300) mosm/kg Ur Random Creatinine (27-300) mg/dL Ur Random Sodium meq/L Salicylates (2.8-20.0) mg/dL Urine Opiates Screen (Neg) Acetaminophen (10.0-30.0) mcg/mL Ur Barbiturates Screen (Neg) Ur Amphetamines Screen (Neg) U Benzodiazepines Scrn (Neg) Urine Cocaine Screen (Neg) U Cannabinoids Screen (Neg) Serum Alcohol (0-5) mg/dL Complement C3 (90-180) mg/dL Complement C4 (10-40) mg/dL Imaging Data Attestation: I personally reviewed and interpreted this imaging study as follows : Radiologist's impression: Chest X-Ray 11/27/18 17:00 CONCLUSION: Findings suggest nonconsolidative patchy infiltrates in the left lower lung. Head CT 11/27/18 17:00 CONCLUSION: 1. Negative exam with no evidence of hemorrhage or mass effect. . Venous Doppler Study 11/27/18 17:03 CONCLUSION: 1. The study is negative for bilateral lower extremity deep venous thrombosis. Abdomen Ultrasound 11/28/18 00:00 CONCLUSION: 1. Cirrhotic liver with splenorenal shunt. 2. Cholelithiasis. 3. Hepatic and pancreatic cysts. ECG Data Attestation: I personally reviewed and interpreted this ECG as follows: Interpretation: EKG shows sinus rhythm with a ventricular rate of 67 bpm, IA interval of 187 ms. No sign of acute ST elevation read by me and attending. Discharge Plan Discharge Disposition Patient Disposition: ED Admit(ED Internal Use Only) Discharge Order Discharge Orders: ED Use Only Admit Order (Routine); Ordered 11/27/18 Ordered By: Toby Diehl Discharge Details Diagnosis: Acute alteration in mental status, Acute kidney failure, Acute hepatic encephalopathy, Pneumonia Physicians Team ED Provider: Stephanie Guerrero ED Midlevel Provider: Toby Diehl Primary Care Provider: Annamaria Vidal Attending Provider: Magui Valderrama Other Providers: Jaya Lake ; Albaro Lisa Status ED Status: Left Department Discharge Information Discharge Date/Time: 11/27/18 21:38
[2018-11-27] MEDS ORDERED: Sod Chloride 0.9% Inj 1,000 ML IV.CONT SCH (20:15)
--- NOTE | 2018-11-27 20:33 | P.HPIM ---
History of Present Illness Primary Care Physician: Annamaria Vidal MD 68-year-old male with a past medical history significant for hepatitis C status post treatment (patient is unsure of which treatment he completed), diabetes mellitus, coronary artery disease and alcoholic cirrhosis to the emergency department for the evaluation of altered mental status and syncope. According to ED documentation the patient's roommate found him unresponsive this afternoon. EMS was able to arouse the patient was sternal rub and his blood glucose was found to be 33. The patient is a poor historian and cannot provide much history however states that he passed out earlier today and prior to that he "felt sick." He reports he has not had any alcohol for the past 15 years but used to be a very heavy drinker. He also complains of abdominal pain and increasing girth that started yesterday. The chest pain or shortness of breath. No fever/chills. No nausea/vomiting/diarrhea. No focal neurologic deficits. Inpatient Certification Inpatient Certification: I certify that the inpatient services were ordered in accordance with Medicare regulations governing the order. This includes certification that hospital inpatient services are reasonable and necessary and in the case of services not specified as inpatient-only under 42 CFR 419.22(n), that they are appropriately provided as inpatient services in accordance to with the 2-midnight benchmark under 43 CFR 412.3(e) Estimated Total Length of Stay (Days): 2 Plans for Post Hospital Care: Not yet determined Review of Systems Review of Systems: all other systems reviewed are negative [facility] Medical History Medical History Cirrhosis (Acute) Coronary artery disease (Acute) Diabetes (Acute) HTN (hypertension) (Acute) Hepatitis C (Acute) Surgical History Surgical History Status post hernia repair (Acute) Family History Family History Other Coronary artery disease Social History Social History Substance History: No History of Abuse Second Hand Smoke Exposure: No Smoking Status: Current every day smoker Tobacco Type: Cigarettes How Often Do You Have a Drink Containing Alcohol: Never Recent Travel in [facility] within the Last 8 Weeks: No Recent Out of Country Travel within the Last 8 Weeks: No Immunization History Tetanus Immunization: <5 Years Medications and Allergies Allergies Allergy/AdvReac Type Severity Reaction Status Date / Time acetaminophen AdvReac Severe cirrhosis Verified 11/27/18 20:26 Active Medications: Active Medications Sodium Chloride (Ns Inj) 1,000 mls @ 100 mls/hr IV.CONT .Q10H RACHEL Ondansetron HCl (Zofran Inj) 4 mg IV.PUSH Q6H PRN PRN Reason: NAUSEA OR VOMITING Sodium Chloride (Ns Flush) 2 ml IV.FLUSH BID RACHEL Sodium Chloride (Ns Flush) 2 ml IV.FLUSH PRN PRN PRN Reason: FLUSH AFTER USING IV ACCESS Physical Exam Vital signs: Vital Signs 11/27/18 16:47 11/27/18 20:18 Pulse Rate 54 L 63 Respiratory Rate 16 16 Blood Pressure 155/109 H 124/58 L Pulse Oximetry 100 100 Intake & Output 11/27/18 11/27/18 11/28/18 06:59 18:59 06:59 Intake Total 600 / 600 250 / 250 Balance 600 / 600 250 / 250 Weight 112.491 kg Intake: IV 600 / 600 250 / 250 Azithromycin Inj 500 MG In NS 250 / 250 Inj 250 ML @ 250 mls/hr IV.SIG ONCE ONE Rx#:[id number] NS Inj 500 ML @ 1000 mls/hr IV. 500 / 500 SIG BOLUS RACHEL Rx#:[id number] Rocephin Inj 1,000 MG In NS Inj 100 / 100 100 ML @ 200 mls/hr IV.SIG ONCE ONE Rx#:[id number] Narrative: Gen.: No acute distress Head: Normocephalic. Atraumatic. EENT: Pupils equal round and reactive to light. Nose without drainage. Airway intact. Throat without injection. Cardiovascular: Regular rate and rhythm. No murmurs, rubs or gallops. Respiratory: Lungs clear to auscultation bilaterally. No wheezes or rhonchi. Abdomen: Soft, nontender, positive distention. No peritoneal signs. Musculoskeletal: No gross deformities. 2+ pedal edema. Skin: No obvious rashes or erythema. Neuro: Sensory and motor grossly intact. Cranial nerves II through XII grossly intact. Results Labs CBC & Chem 7: 11/27/18 17:05 11/27/18 17:05 Imaging Impressions Chest X-Ray 11/27/18 17:00 CONCLUSION: Findings suggest nonconsolidative patchy infiltrates in the left lower lung. Head CT 11/27/18 17:00 CONCLUSION: 1. Negative exam with no evidence of hemorrhage or mass effect. . Venous Doppler Study 11/27/18 17:03 CONCLUSION: 1. The study is negative for bilateral lower extremity deep venous thrombosis. Caprini VTE Risk Assessment Caprini VTE Risk Assessment: Moderate/High Risk (score >= 2) Caprini Risk Assessment Model: Point Value = 1 Point Value = 2 Point Value = 3 Point Value = 5 Age 41-60 Minor surgery BMI > 25 kg/m2 Swollen legs Varicose veins or History of unexplained or recurrent spontaneous Oral contraceptives or hormone replacement Sepsis (< 1 month) Serious lung disease, including pneumonia (< 1 month) Abnormal pulmonary function Acute myocardial infarction Congestive heart failure (< 1 month) History of inflammatory bowel disease Medical patient at bed rest Age 61-74 Arthroscopic surgery Major open surgery (> 45 min) Laparoscopic surgery (> 45 min) Malignancy Confined to bed (> 72 hours) Immobilizing plaster cast Central venous access Age >= 75 History of VTE Family history of VTE Factor V Leiden Prothrombin [id number] Lupus anticoagulant Anticardiolipin antibodies Elevated serum homocysteine Heparin-induced thrombocytopenia Other congenital or acquired thrombophilia Stroke (< 1 month) Elective arthroplasty Hip, pelvis, or leg fracture Acute spinal cord injury (< 1 month) Prophylaxis Regimen: Total Risk Factor Score Risk Level Prophylaxis Regimen 0-1 Low Early ambulation 2 Moderate Order ONE of the following: *Sequential Compression Device (SCD) *Heparin 5000 units SQ BID 3-4 Higher Order ONE of the following medications: *Heparin 5000 units SQ TID *Enoxaparin/Lovenox 40 mg SQ daily (WT < 150 kg, CrCl > 30 mL/min) *Enoxaparin/Lovenox 30 mg SQ daily (WT < 150 kg, CrCl > 10-29 mL/min) *Enoxaparin/Lovenox 30 mg SQ BID (WT < 150 kg, CrCl > 30 mL/min) AND/OR *Sequential Compression Device (SCD) 5 or more Highest Order ONE of the following medications: *Heparin 5000 units SQ TID (Preferred with Epidurals) *Enoxaparin/Lovenox 40 mg SQ daily (WT < 150 kg, CrCl > 30 mL/min) *Enoxaparin/Lovenox 30 mg SQ daily (WT < 150 kg, CrCl > 10-29 mL/min) *Enoxaparin/Lovenox 30 mg SQ BID (WT < 150 kg, CrCl > 30 mL/min) AND *Sequential Compression Device (SCD) Assessment and Plan Plan Assessment/plan: 1. Altered mental status/hypoglycemia/hyperammonemia/cirrhosis Head CT negative for acute process Drug screen, alcohol level, salicylate level and acetaminophen level pending Patient's blood glucose was found to be 33 on scene by EMS, status post D10 and food now 167. Monitor Ammonia 110 Patient reports he is supposed to be on multiple medications and states that he takes them although he does not know what they are Lactulose Repeat NH4 tomorrow 2. Acute renal failure BUN 77, creatinine 5.37 Patient with no history of kidney disease Renal ultrasound pending Nephrology consulted Status post 1 L IV fluids in the emergency department, patient appears volume overloaded - appreciate nephrology input 3. Abdominal pain/ascites Abdominal ultrasound pending to evaluate for ascites Patient may require paracentesis 4. PNA Chest x-ray significant for non-consolidative patchy infiltrates in the left lower lung Azithromycin and Rocephin DuoNebs 5. Diabetes mellitus Hypoglycemia as above Q. 6-hour Accu-Cheks Start sliding scale insulin if patient becomes hyperglycemic 6. Coronary artery disease/hypertension Normotensive Unknown home medications Resume once reconciled 7. Hepatitis C Patient reports he is status post 6 different treatments for hepatitis C Follow up as outpatient FEN N.p.o. Electrolytes: Replete as needed Holding pharmacologic anticoagulation for possible paracentesis
[2018-11-27] MEDS ORDERED: Dextrose 50% in Water 50 ML Vial IV.PUSH PRN (20:34)
[2018-11-28 07:01] LABS: Baso % (Auto) 0.5 % (0.0-2.0); Eos # (Auto) 0.1 th/mm3 (0.0-0.4); Eos % (Auto) 1.3 % (0.0-4.0); Hematocrit 34.6 % (39.0-51.0); Hemoglobin 11.9 gm/dL (13.0-17.0); Lymph # (Auto) 1.8 th/mm3 (1.0-4.8); Lymph % (Auto) 22.3 % (9.0-44.0); Mean Corpuscular HGB Conc 34.4 % (32.0-36.0); Mean Corpuscular Hemoglobin 37.5 pg (27.0-34.0); Mean Corpuscular Volume 108.8 fL (80.0-100.0); Mean Platelet Volume 11.1 fL (7.0-11.0); Mono # (Auto) 0.8 th/mm3 (0.0-0.9); Mono % (Auto) 9.8 % (0.0-8.0); Neut # (Auto) 5.2 th/mm3 (1.8-7.7); Neut % (Auto) 66.1 % (16.0-70.0); Platelet Count 85 th/mm3 (150-450); Red Blood Count 3.18 mil/mm3 (4.50-5.90); White Blood Count 7.9 th/mm3 (4.0-11.0)
[2018-11-28 07:53] LABS: Alanine Aminotransferase 28 U/L (12-78); Anion Gap 11 meq/L (5-15); Aspartate Aminotransferase 18 U/L (15-37); Blood Urea Nitrogen 76 mg/dL (7-18); Calcium 8.4 mg/dL (8.5-10.1); Carbon Dioxide 20.7 meq/L (21.0-32.0); Chloride 112 meq/L (98-107); Glomerular Filtration Rate 11 mL/min (>89); Glucose,Random 69 mg/dL (74-106); Potassium 4.4 meq/L (3.5-5.1); Sodium 144 meq/L (136-145)
[2018-11-28 07:55] LABS: Alkaline Phosphatase 117 U/L (45-117)
[2018-11-28] MEDS ORDERED: Hydrocortisone Sod Succinate 100 MG Vial IV.PUSH ONE (08:44)
--- NOTE | 2018-11-28 09:41 | US ---
EXAM DATE: 11/28/2018 9:33 AM EST AGE/SEX: 68 years / Male INDICATIONS: Abdominal pain. CLINICAL DATA: This is the patient's initial encounter. Patient reports that signs and symptoms have been present for 2 days and indicates a pain score of 3/10. MEDICAL/SURGICAL HISTORY: Cirrhosis. Diabetes. Hepatitis C. Coronary artery disease. Hyperte nsion. . Hernia repair. Splenorenal shunt. COMPARISON: [facility], [facility], 02/12/2015. . MEASUREMENTS: Liver:__ 15.6 cm. Common Bile Duct:___ 5mm. Right Kidney:___12.5 x 5.8 x 5.2 cm. Left Kidney:___12.9 x 6.0 x 6.3 cm. Spleen:___10.7 cm. FINDINGS: Liver: The liver appears cirrhotic with 2 simple cysts measuring 7 mm each. Portal Vein: Hepatopedal flow seen in portal vein. Common Duct: No intraluminal mass or stone visualized. Gallbladder: Gallstones are present within the gallbladder and the gallbladder wall measures almost 5 mm without pericholecystic fluid . Pancreas: There is an approximate 3 cm cyst in the head of the pancreas most likely benign with a sep arate cysts in the body of the pancreas measures 9 mm in size. Right Kidney: Unremarkable Left Kidney: Unremarkable Ascites: None Pleural Effusion: None Spleen: Dilated blood vessels are present within the splenic hilum connecting into a dilated left re nal vein characteristic of splenorenal shunt. Aorta: Not visualized. IVC: Within normal limits Other: None. CONCLUSION: 1. Cirrhotic liver with splenorenal shunt. 2. Cholelithiasis. 3. Hepatic and pancreatic cysts. Electronically signed by: Joseph Daly MD Board Certified Radiologist 11/28/2018 9:40 AM EST
--- NOTE | 2018-11-28 12:34 | ECG ---
Date Performed: 11/27/2018 Time Performed: 18:47:25 PTAGE: 68 years EKG: Sinus rhythm PROLONGED QT INTERVAL ABNORMAL ECG NO PREVIOUS TRACING DOCTOR: Gabe Jaramillo Interpretating Date/Time 11/28/2018 12:28:51
--- NOTE | 2018-11-28 14:44 | P.CONNP ---
<Mary Drake - Last Filed: 11/28/18 14:28> History of Present Illness Service: Nephrology Consult date: 11/28/18 Requesting Physician: Cynthia Louie Reason for Consult: Acute kidney injury on chronic kidney disease Primary Care Provider: Annamaria Vidal MD History of Present Illness: Patient is a 68-year-old male with a past medical history significant for hepatitis C status post treatment (patient is unsure of which treatment he completed), diabetes mellitus, coronary artery disease and alcoholic cirrhosis. Presented to the emergency department for the evaluation of altered mental status, syncope, and hypoglycemia. According to ED documentation the patient's roommate found him unresponsive this afternoon. Nephrology is consulted for acute kidney injury with a creatinine of 5.37 on admission which has improve at 5.22 today. Potassium level normal. Mental status has improved and he is alert and oriented X 3 now but a poor historian. No recent baseline creatinine available but patient has reported that his creatinine has been elevated in past and has not been able to get dye studies. Creatinine at 1.38 in 2014. Abdomen US of kidneys with no acute findings. He reports that he has been on lasix 80 mg daily to help with swelling. Minimal edema currently. No shortness of breath, chest pain, nausea, or vomiting. Review of Systems All other systems reviewed negative except as stated in HPI PMFSH - History History Provided By: Patient - Medical History Medical History: Medical History (Last Updated 11/27/18 @ 20:30 by Cynthia Louie MD) Cirrhosis Coronary artery disease Diabetes HTN (hypertension) Hepatitis C - Surgical History Surgical History: Surgical History (Last Updated 11/27/18 @ 20:30 by Cynthia Louie MD) Status post hernia repair - Family History Family History: Family History (Last Reviewed 11/27/18 @ 19:24 by SHLOMO Wan) Other Coronary artery disease - Tobacco History Second Hand Smoke Exposure: Yes Tobacco Use In Past 30 Days: Yes Smoking Status: Current every day smoker Tobacco Type: Cigarettes - Alcohol History How Often Do You Have a Drink Containing Alcohol: Never - Substance Use History Substance History: Active Abuse - Substance Use Type Marijuana Status: Active Route Used: Inhalation Frequency: 1/2 gram a day Reason for Use: Calm Down - Travel History Recent Travel in the [facility] Within the Last 8 Weeks: No Recent Travel Out of the Country Within the Last 8 Weeks: No - Immunization History Tetanus Immunization: <5 Years Hx Influenza Vaccine This Season: Yes Medications and Allergies Allergies Allergy/AdvReac Type Severity Reaction Status Date / Time acetaminophen AdvReac Severe cirrhosis Verified 11/27/18 20:26 Home Medications Medication Instructions Recorded Confirmed Type Unable to Obtain Home Meds 11/27/18 11/27/18 History Active Medications: Active Medications Albuterol (Duoneb Neb (Prn)) 1 ampul NEB Q4HR NEB PRN PRN Reason: SOB/Wheezing Dextrose (D50w Vial) 50 ml IV.PUSH UNSCH PRN PRN Reason: PER HYPOGLYCEMIA PROTOCOL Glucagon (Glucagon Inj) 1 mg OTHER PRN PRN PRN Reason: for Hypoglycemia Protocol Azithromycin 500 mg/ Sodium (Chloride) 250 mls @ 250 mls/hr IV.SIG Q24H RACHEL Ceftriaxone Sodium 1,000 mg/ (Sodium Chloride) 100 mls @ 200 mls/hr IV.SIG Q24H RACHEL Lactulose (Lactulose Liq) 30 ml PO BID RACHEL Last Admin: 11/28/18 09:24 Dose: 30 ml Ondansetron HCl (Zofran Inj) 4 mg IV.PUSH Q6H PRN PRN Reason: NAUSEA OR VOMITING Sodium Chloride (Ns Flush) 2 ml IV.FLUSH BID RACHEL Last Admin: 11/28/18 09:25 Dose: 2 ml Sodium Chloride (Ns Flush) 2 ml IV.FLUSH PRN PRN PRN Reason: FLUSH AFTER USING IV ACCESS Exam Vital signs: Vital Signs 11/27/18 16:47 11/27/18 20:18 11/27/18 22:03 Temperature Pulse Rate 54 L 63 67 Respiratory Rate 16 16 Blood Pressure 155/109 H 124/58 L Pulse Oximetry 100 100 11/27/18 22:11 11/27/18 23:04 11/28/18 00:07 Temperature 97.6 F 98 F Pulse Rate 63 70 71 Respiratory Rate 16 15 Blood Pressure 152/70 H 150/82 H Pulse Oximetry 97 11/28/18 04:00 11/28/18 08:00 Temperature 98.1 F 97.8 F Pulse Rate 69 66 Respiratory Rate 18 18 Blood Pressure 114/55 L 135/64 Pulse Oximetry 99 100 Intake & Output 11/27/18 11/28/18 11/28/18 18:59 06:59 18:59 Intake Total 600 / 600 250 / 250 Balance 600 / 600 250 / 250 Weight 112.491 kg 104.2 kg Intake: IV 600 / 600 250 / 250 Azithromycin Inj 500 MG In NS 250 / 250 Inj 250 ML @ 250 mls/hr IV.SIG ONCE ONE Rx#:[id number] NS Inj 500 ML @ 1000 mls/hr IV. 500 / 500 SIG BOLUS RACHEL Rx#:[id number] Rocephin Inj 1,000 MG In NS Inj 100 / 100 100 ML @ 200 mls/hr IV.SIG ONCE ONE Rx#:[id number] Other: # Voids 2 Weight On Admission 104.4 kg Narrative: GENERAL: Alert and oriented. SKIN: Warm and dry. NECK: Supple, trachea midline. No JVD CARDIOVASCULAR: Regular rate and rhythm without murmurs, gallops, or rubs. RESPIRATORY: Breath sounds equal bilaterally. No accessory muscle use. GASTROINTESTINAL: Abdomen soft, non-tender, distended. +BS MUSCULOSKELETAL: No cyanosis, Mild lower extremity edema. BACK: Nontender without obvious deformity. No CVA tenderness. Results - Lab Results 11/28/18 06:00 11/28/18 06:00 Most recent lab results Calcium 8.4 mg/dL (8.5-10.1) L 11/28/18 06:00 Magnesium 2.8 mg/dL (1.5-2.5) H 11/27/18 17:05 - Image Kidney/bladder ultrasound: report reviewed Assessment and Plan - Assessment (1) Acute kidney failure Code(s): N17.9 - Acute kidney failure, unspecified Status: Acute Plan: Acute kidney injury with creatinine on admission of 5.37 which has improved to 5.22 on day of consult. Is not followed by exercise instruct outpatient but creatinine in 2013 was elevated at 1.3 Acute kidney injury could be prerenal/ATN related to diuretic use or infection. Hepatorenal syndrome is also a consideration US of abdomen showed kidneys with no acute findings. Urine negative for proteinuria. Will order serology Urine for osmolarity, sodium, and creatinine Continue to hold diuretics and oral fluids encouraged, may need gently hydration if does not continue to improve. Avoid nephrotoxins and monitor accurate I+0 Labs in AM (2) Acute hepatic encephalopathy Code(s): K72.00 - Acute and subacute hepatic failure without coma Status: Acute Plan: Ammonia level improving on lactulose. (3) Pneumonia Code(s): J18.9 - Pneumonia, unspecified organism Status: Acute Plan: On antibiotics, renal dose if indicated. Chest Xray with patchy infiltrates. <Albaro Lisa - Last Filed: 11/28/18 18:12> History of Present Illness Primary Care Provider: Annamaria Vidal MD [facility] - Medical History Medical History: Medical History (Last Updated 11/27/18 @ 20:30 by Cynthia Louie MD) Cirrhosis Coronary artery disease Diabetes HTN (hypertension) Hepatitis C - Surgical History Surgical History: Surgical History (Last Updated 11/27/18 @ 20:30 by Cynthia Louie MD) Status post hernia repair - Family History Family History: Family History (Last Reviewed 11/27/18 @ 19:24 by SHLOMO Wan) Other Coronary artery disease Medications and Allergies Active Medications: Active Medications Albuterol (Duoneb Neb (Prn)) 1 ampul NEB Q4HR NEB PRN PRN Reason: SOB/Wheezing Dextrose (D50w Vial) 50 ml IV.PUSH UNSCH PRN PRN Reason: PER HYPOGLYCEMIA PROTOCOL Glucagon (Glucagon Inj) 1 mg OTHER PRN PRN PRN Reason: for Hypoglycemia Protocol Azithromycin 500 mg/ Sodium (Chloride) 250 mls @ 250 mls/hr IV.SIG Q24H RACHEL Ceftriaxone Sodium 1,000 mg/ (Sodium Chloride) 100 mls @ 200 mls/hr IV.SIG Q24H RACHEL Lactulose (Lactulose Liq) 30 ml PO BID RACHEL Last Admin: 11/28/18 09:24 Dose: 30 ml Ondansetron HCl (Zofran Inj) 4 mg IV.PUSH Q6H PRN PRN Reason: NAUSEA OR VOMITING Sodium Chloride (Ns Flush) 2 ml IV.FLUSH BID RACHEL Last Admin: 11/28/18 09:25 Dose: 2 ml Sodium Chloride (Ns Flush) 2 ml IV.FLUSH PRN PRN PRN Reason: FLUSH AFTER USING IV ACCESS Exam Vital signs: Vital Signs 11/27/18 20:18 11/27/18 22:03 11/27/18 22:11 Temperature 97.6 F Pulse Rate 63 67 63 Respiratory Rate 16 16 Blood Pressure 124/58 L 152/70 H Pulse Oximetry 100 11/27/18 23:04 11/28/18 00:07 11/28/18 04:00 Temperature 98 F 98.1 F Pulse Rate 70 71 69 Respiratory Rate 15 18 Blood Pressure 150/82 H 114/55 L Pulse Oximetry 97 99 11/28/18 08:00 11/28/18 12:00 11/28/18 16:00 Temperature 97.8 F 98.1 F 98.1 F Pulse Rate 66 71 75 Respiratory Rate 18 18 18 Blood Pressure 135/64 148/63 H 139/64 Pulse Oximetry 100 100 100 Intake & Output 11/27/18 11/28/18 11/28/18 18:59 06:59 18:59 Intake Total 600 / 600 250 / 250 Balance 600 / 600 250 / 250 Weight 112.491 kg 104.2 kg Intake: IV 600 / 600 250 / 250 Azithromycin Inj 500 MG In NS 250 / 250 Inj 250 ML @ 250 mls/hr IV.SIG ONCE ONE Rx#:[id number] NS Inj 500 ML @ 1000 mls/hr IV. 500 / 500 SIG BOLUS RACHEL Rx#:[id number] Rocephin Inj 1,000 MG In NS Inj 100 / 100 100 ML @ 200 mls/hr IV.SIG ONCE ONE Rx#:[id number] Other: # Voids 2 Weight On Admission 104.4 kg Results - Lab Results 11/28/18 06:00 11/28/18 06:00 Most recent lab results Calcium 8.4 mg/dL (8.5-10.1) L 11/28/18 06:00 Magnesium 2.8 mg/dL (1.5-2.5) H 11/27/18 17:05 Assessment and Plan - Assessment (1) Acute kidney failure Code(s): N17.9 - Acute kidney failure, unspecified Status: Acute Plan: Patient seen and examined, agree with above. Has very high BUN and Creatinine, no baseline available. Patient told to bring previous labs. Will check Po4, CPK, Complement and serology. Start gentle Hydration. May need HD if not better. (2) Acute hepatic encephalopathy Code(s): K72.00 - Acute and subacute hepatic failure without coma Status: Acute (3) Pneumonia Code(s): J18.9 - Pneumonia, unspecified organism Status: Acute <Mary Darke - Last Filed: 11/28/18 14:28> (1) Acute kidney failure Qualifiers: Acute renal failure type: unspecified Qualified Code(s): N17.9 - Acute kidney failure, unspecified (3) Pneumonia Qualifiers: Pneumonia type: due to unspecified organism Laterality: left Lung location: lower lobe of lung Qualified Code(s): J18.1 - Lobar pneumonia, unspecified organism <Albaro Lisa - Last Filed: 11/28/18 18:12> (1) Acute kidney failure Qualifiers: Acute renal failure type: unspecified Qualified Code(s): N17.9 - Acute kidney failure, unspecified (3) Pneumonia Qualifiers: Pneumonia type: due to unspecified organism Laterality: left Lung location: lower lobe of lung Qualified Code(s): J18.1 - Lobar pneumonia, unspecified organism
[2018-11-28 16:40] LABS: Sodium,Urine Random 7 meq/L
[2018-11-28 16:47] LABS: Creatinine,Urine Random 128 mg/dL (27-300)
[2018-11-28] MEDS: Sod Chloride 0.9% Inj 1,000 ML IV.CONT SCH (19:45)
--- NOTE | 2018-11-28 19:52 | P.PNIM ---
Subjective Interval history: 68-year-old gentleman with acute altered mental status status post being found with significant hypoglycemia blood sugar down to 33, also noted to have elevated creatinine of 5.3 Patient seen and examined, doing better, sugars are coming up, denies nausea vomiting, shortness of breath, no chest pain, no recent fevers or other illness. States he has been trying to lose weight not eating at home.. Physical Exam Vital signs: Vital Signs 11/27/18 20:18 11/27/18 22:03 11/27/18 22:11 Temperature 97.6 F Pulse Rate 63 67 63 Respiratory Rate 16 16 Blood Pressure 124/58 L 152/70 H Pulse Oximetry 100 11/27/18 23:04 11/28/18 00:07 11/28/18 04:00 Temperature 98 F 98.1 F Pulse Rate 70 71 69 Respiratory Rate 15 18 Blood Pressure 150/82 H 114/55 L Pulse Oximetry 97 99 11/28/18 08:00 11/28/18 12:00 11/28/18 16:00 Temperature 97.8 F 98.1 F 98.1 F Pulse Rate 66 71 75 Respiratory Rate 18 18 18 Blood Pressure 135/64 148/63 H 139/64 Pulse Oximetry 100 100 100 Intake & Output 11/28/18 11/28/18 11/29/18 06:59 18:59 06:59 Intake Total 250 / 250 480 / 480 Output Total 300 / 300 Balance 250 / 250 180 / 180 Weight 104.2 kg Intake: IV 250 / 250 Azithromycin Inj 500 MG In NS 250 / 250 Inj 250 ML @ 250 mls/hr IV.SIG ONCE ONE Rx#:[id number] Oral 480 / 480 Output: Urine 300 / 300 Other: # Voids 2 # Bowel Movements 3 Weight On Admission 104.4 kg Narrative: Well-developed well-nourished obese 68-year-old gentleman Awake alert oriented no acute distress Heart S1-S2 regular Lungs clear decreased breath sounds no wheeze no rhonchi Abdomen soft obese nontender positive bowel sounds, protuberant Extremities no clubbing cyanosis no significant edema Results Labs CBC & Chem 7: 11/28/18 06:00 11/28/18 06:00 Imaging Imaging: Impressions Abdomen Ultrasound 11/28/18 00:00 CONCLUSION: 1. Cirrhotic liver with splenorenal shunt. 2. Cholelithiasis. 3. Hepatic and pancreatic cysts. Assessment and Plan (1) Acute kidney failure: Code(s): N17.9 - Acute kidney failure, unspecified Status: Acute (2) Acute hepatic encephalopathy: Code(s): K72.00 - Acute and subacute hepatic failure without coma Status: Acute (3) Pneumonia: Code(s): J18.9 - Pneumonia, unspecified organism Status: Acute Plan SYNCOPE/AMS due to encephalopathy due to hypoglycemia, renal failure, and pna etc - better HYPOGLYCEMIA reactive hypoglycemia likely, due to liver failure and poor diet and hx dm(states off meds for years now bs sugars controlled, ACUTE RENAL FAILURE w metabolic acidosis- prerenal vs other us no obstruction , cont ivf and fu w nephrology PNEUMONIA LLL - cap vs aspiration - cont abx, clinically stable ACUTE HEPATIC AND METABOLIC ENCEPHALOPATHY (due to hypoglycemia) ammonia 100 CIRRHOSIS alcoholic - suspect still drinks his mcv is elevated, and ammonia up, monitor for dts, cont thiamine and folate. SEVERE PROT VERN MALNUTURITION - alb 2.0 nutrition consult OBESITY - nutrtion consult CAD hx clinically stable HEPATITIS C s/p interferon THROMBOCYTOPENIA - monitor plts, no bleeding. dvt prophylaxis - scd dispo - home w hh when stable. Progress Note: Quality VTE Deep Vein Thrombosis/Pulmonary Embolism Present on Admission: No _ (1) Acute kidney failure Qualifiers: Acute renal failure type: unspecified Qualified Code(s): N17.9 - Acute kidney failure, unspecified (2) Pneumonia Qualifiers: Aspiration pneumonia type: Laterality: left Lung location: lower lobe of lung Pneumonia type: due to unspecified organism Qualified Code(s): J18.1 - Lobar pneumonia, unspecified organism
[2018-11-28] MEDS: Azithromycin Inj 500 MG in Sodium Chlor 0.9% Inj 250 ML IV.SIG SCH (22:16)
[2018-11-29] MEDS: Sod Chloride 0.9% Inj 1,000 ML IV.CONT SCH ×4 (06:45→20:16)
[2018-11-29 11:10] LABS: Baso % (Auto) 0.4 % (0.0-2.0); Eos # (Auto) 0.1 th/mm3 (0.0-0.4); Eos % (Auto) 0.9 % (0.0-4.0); Hematocrit 30.2 % (39.0-51.0); Hemoglobin 10.4 gm/dL (13.0-17.0); Lymph # (Auto) 2.3 th/mm3 (1.0-4.8); Lymph % (Auto) 22.7 % (9.0-44.0); Mean Corpuscular HGB Conc 34.5 % (32.0-36.0); Mean Corpuscular Hemoglobin 37.3 pg (27.0-34.0); Mean Corpuscular Volume 108.3 fL (80.0-100.0); Mean Platelet Volume 10.6 fL (7.0-11.0); Mono # (Auto) 0.8 th/mm3 (0.0-0.9); Mono % (Auto) 7.7 % (0.0-8.0); Neut # (Auto) 6.8 th/mm3 (1.8-7.7); Neut % (Auto) 68.3 % (16.0-70.0); Platelet Count 88 th/mm3 (150-450); Red Blood Count 2.79 mil/mm3 (4.50-5.90); Red Cell Distribution Width 17.8 % (11.6-17.2)
[2018-11-29 11:14] LABS: Albumin 2.1 g/dL (3.4-5.0); Calcium 7.8 mg/dL (8.5-10.1); Carbon Dioxide 18.8 meq/L (21.0-32.0); Phosphorus 5.8 mg/dL (2.5-4.9); Potassium 3.9 meq/L (3.5-5.1)
[2018-11-29 12:37] LABS: Toxic Granulation 1+
--- NOTE | 2018-11-29 16:57 | P.PNNP ---
Subjective Interval history: Patient is sitting up in chair. Denies any shortness of breath, chest pain, or vomiting. Has had some nausea and loose stools. <Mary Drake - Last Filed: 11/29/18 16:50> Physical Exam Vital signs: Vital Signs 11/28/18 20:00 11/28/18 23:20 11/29/18 00:00 Temperature 97.9 F 97.9 F Pulse Rate 76 82 87 Respiratory Rate 18 18 Blood Pressure 140/66 144/70 H Pulse Oximetry 98 98 11/29/18 03:40 11/29/18 04:00 11/29/18 08:00 Temperature 98.3 F 98 F Pulse Rate 96 H 105 H 73 Respiratory Rate 18 18 Blood Pressure 99/49 L 143/76 H Pulse Oximetry 96 96 11/29/18 12:00 11/29/18 16:00 Temperature 97.7 F 97.7 F Pulse Rate 83 72 Respiratory Rate 18 18 Blood Pressure 140/63 149/65 H Pulse Oximetry 98 100 Intake & Output 11/28/18 11/29/18 11/29/18 18:59 06:59 18:59 Intake Total 480 / 480 590 / 590 1000 / 1000 Output Total 300 / 300 300 / 300 Balance 180 / 180 290 / 290 1000 / 1000 Weight 106.6 kg Intake: IV 350 / 350 1000 / 1000 NS Inj 1,000 ML @ 84 mls/hr IV. 1000 / 1000 CONT .[id number] RACHEL Rx#:[id number] Azithromycin Inj 500 MG In NS 250 / 250 Inj 250 ML @ 250 mls/hr IV.SIG Q24H RACHEL Rx#:[id number] Rocephin Inj 1,000 MG In NS Inj 100 / 100 100 ML @ 200 mls/hr IV.SIG Q24H RACHEL Rx#:[id number] Oral 480 / 480 240 / 240 Output: Urine 300 / 300 300 / 300 Other: Date of Last Bowel Movement 11/29/18 11/29/18 # Bowel Movements 3 1 Narrative: GENERAL: Alert and oriented. SKIN: Warm and dry. NECK: Supple, trachea midline. No JVD CARDIOVASCULAR: Regular rate and rhythm without murmurs, gallops, or rubs. RESPIRATORY: Breath sounds equal bilaterally. No accessory muscle use. GASTROINTESTINAL: Abdomen soft, non-tender, distended. +BS MUSCULOSKELETAL: No cyanosis, Mild lower extremity edema. BACK: Nontender without obvious deformity. No CVA tenderness. <Mary Drake - Last Filed: 11/29/18 16:50> Vital signs: Vital Signs 11/28/18 23:20 11/29/18 00:00 11/29/18 03:40 Temperature 97.9 F 98.3 F Pulse Rate 82 87 96 H Respiratory Rate 18 18 Blood Pressure 144/70 H 99/49 L Pulse Oximetry 98 96 11/29/18 04:00 11/29/18 08:00 11/29/18 12:00 Temperature 98 F 97.7 F Pulse Rate 105 H 73 83 Respiratory Rate 18 18 Blood Pressure 143/76 H 140/63 Pulse Oximetry 96 98 11/29/18 16:00 11/29/18 20:00 Temperature 97.7 F 97.7 F Pulse Rate 72 70 Respiratory Rate 18 18 Blood Pressure 149/65 H 155/71 H Pulse Oximetry 100 99 Intake & Output 11/29/18 11/29/18 11/30/18 06:59 18:59 06:59 Intake Total 590 / 590 1480 / 1480 1000 / 1000 Output Total 300 / 300 Balance 290 / 290 1480 / 1480 1000 / 1000 Weight 106.6 kg Intake: IV 350 / 350 1000 / 1000 1000 / 1000 NS Inj 1,000 ML @ 84 mls/hr IV. 1000 / 1000 1000 / 1000 CONT .[id number] RACHEL Rx#:[id number] Azithromycin Inj 500 MG In NS 250 / 250 Inj 250 ML @ 250 mls/hr IV.SIG Q24H RACHEL Rx#:[id number] Rocephin Inj 1,000 MG In NS Inj 100 / 100 100 ML @ 200 mls/hr IV.SIG Q24H RACHEL Rx#:[id number] Oral 240 / 240 480 / 480 Output: Urine 300 / 300 Other: # Voids 4 Date of Last Bowel Movement 11/29/18 11/29/18 # Bowel Movements 1 1 <Albaro Lisa - Last Filed: 11/29/18 21:16> Assessment and Plan - Assessment (1) Acute kidney failure Code(s): N17.9 - Acute kidney failure, unspecified Status: Acute Qualifiers: Acute renal failure type: unspecified Qualified Code(s): N17.9 - Acute kidney failure, unspecified Plan: Acute kidney injury with creatinine on admission of 5.37 which has improved to 5.22 on day of consult. Is not followed by tire changer outpatient but creatinine in 2014 was elevated at 1.3 Most likely has CAREN on CKD but baseline creatinine unknown. FeNA at less than 1 suggestive of prerenal/ US of abdomen showed kidneys with no acute findings. Urine negative for proteinuria. Serology pending. Continue gently hydration. Avoid nephrotoxins and monitor accurate I+0 Patient told to bring previous labs. Creatinine essentially unchanged at 5.5, with 600 ml UOP May need HD if does not improve (2) Acute hepatic encephalopathy Code(s): K72.00 - Acute and subacute hepatic failure without coma Status: Acute Plan: Ammonia level improving on lactulose. (3) Pneumonia Code(s): J18.9 - Pneumonia, unspecified organism Status: Acute Qualifiers: Pneumonia type: due to unspecified organism Laterality: left Lung location: lower lobe of lung Qualified Code(s): J18.1 - Lobar pneumonia, unspecified organism Plan: On antibiotics, renal dose if indicated. Chest Xray with patchy infiltrates. <Mary Drake - Last Filed: 11/29/18 16:50> - Assessment (1) Acute kidney failure Code(s): N17.9 - Acute kidney failure, unspecified Status: Acute Qualifiers: Acute renal failure type: unspecified Qualified Code(s): N17.9 - Acute kidney failure, unspecified Plan: Patient seen and examined, agree with above. Creatinine remain elevated. Renal U/S noted. Serology pending. May need HD if not better. Will also need Renal Biopsy. (2) Acute hepatic encephalopathy Code(s): K72.00 - Acute and subacute hepatic failure without coma Status: Acute (3) Pneumonia Code(s): J18.9 - Pneumonia, unspecified organism Status: Acute Qualifiers: Pneumonia type: due to unspecified organism Laterality: left Lung location: lower lobe of lung Qualified Code(s): J18.1 - Lobar pneumonia, unspecified organism <Albaro Lisa - Last Filed: 11/29/18 21:16>
--- NOTE | 2018-11-29 19:00 | P.PNIM ---
Subjective Interval history: 68-year-old gentleman with acute altered mental status status post being found with significant hypoglycemia blood sugar down to 33, also noted to have elevated creatinine of 5.3 pt seen and examined doing well, denies sob, no cp, no nv, no abd pain, no diarrhea sugars are better Physical Exam Vital signs: Vital Signs 11/28/18 20:00 11/28/18 23:20 11/29/18 00:00 Temperature 97.9 F 97.9 F Pulse Rate 76 82 87 Respiratory Rate 18 18 Blood Pressure 140/66 144/70 H Pulse Oximetry 98 98 11/29/18 03:40 11/29/18 04:00 11/29/18 08:00 Temperature 98.3 F 98 F Pulse Rate 96 H 105 H 73 Respiratory Rate 18 18 Blood Pressure 99/49 L 143/76 H Pulse Oximetry 96 96 11/29/18 12:00 11/29/18 16:00 Temperature 97.7 F 97.7 F Pulse Rate 83 72 Respiratory Rate 18 18 Blood Pressure 140/63 149/65 H Pulse Oximetry 98 100 Intake & Output 11/28/18 11/29/18 11/29/18 18:59 06:59 18:59 Intake Total 480 / 480 590 / 590 1480 / 1480 Output Total 300 / 300 300 / 300 Balance 180 / 180 290 / 290 1480 / 1480 Weight 106.6 kg Intake: IV 350 / 350 1000 / 1000 NS Inj 1,000 ML @ 84 mls/hr IV. 1000 / 1000 CONT .[id number] RACHEL Rx#:[id number] Azithromycin Inj 500 MG In NS 250 / 250 Inj 250 ML @ 250 mls/hr IV.SIG Q24H RACHEL Rx#:[id number] Rocephin Inj 1,000 MG In NS Inj 100 / 100 100 ML @ 200 mls/hr IV.SIG Q24H RACHEL Rx#:[id number] Oral 480 / 480 240 / 240 480 / 480 Output: Urine 300 / 300 300 / 300 Other: # Voids 4 Date of Last Bowel Movement 11/29/18 11/29/18 # Bowel Movements 3 1 1 Narrative: Well-developed well-nourished obese 68-year-old gentleman Awake alert oriented no acute distress Heart S1-S2 regular Lungs clear decreased breath sounds no wheeze no rhonchi Abdomen soft obese nontender positive bowel sounds, protuberant Extremities no clubbing cyanosis no significant edema Results Labs CBC & Chem 7: 11/29/18 10:21 11/29/18 10:21 Assessment and Plan (1) Acute kidney failure: Code(s): N17.9 - Acute kidney failure, unspecified Status: Acute (2) Acute hepatic encephalopathy: Code(s): K72.00 - Acute and subacute hepatic failure without coma Status: Acute (3) Pneumonia: Code(s): J18.9 - Pneumonia, unspecified organism Status: Acute Plan SYNCOPE/AMS due to metabolic encephalopathy due to hypoglycemia, renal failure, and pna etc - better back to baseline HYPOGLYCEMIA reactive hypoglycemia likely, due to liver failure renal failure and poor diet and hx dm(states off meds for years now bs sugars controlled) better ACUTE RENAL FAILURE w metabolic acidosis- prerenal vs other us no obstruction , cont ivf monitor output, high risk of dialysis discussed w patient if no improvement creat PNEUMONIA LLL - cap vs aspiration - cont abx, clinically stable ACUTE HEPATIC AND METABOLIC ENCEPHALOPATHY (due to hypoglycemia) ammonia 100 CIRRHOSIS alcoholic - suspect still drinks his mcv is elevated, and ammonia up, monitor for dts, cont thiamine and folate. SEVERE PROT VERN MALNUTURITION - alb 2.0 nutrition consult OBESITY - nutrition consult CAD hx clinically stable HEPATITIS C s/p interferon THROMBOCYTOPENIA - monitor plts, no bleeding likely due to cirrhosis dvt prophylaxis - scd dispo - home w hh when stable. Progress Note: Quality VTE Deep Vein Thrombosis/Pulmonary Embolism Present on Admission: No _ (1) Acute kidney failure Qualifiers: Acute renal failure type: unspecified Qualified Code(s): N17.9 - Acute kidney failure, unspecified (2) Pneumonia Qualifiers: Aspiration pneumonia type: Laterality: left Lung location: lower lobe of lung Pneumonia type: due to unspecified organism Qualified Code(s): J18.1 - Lobar pneumonia, unspecified organism
[2018-11-29] MEDS: Azithromycin Inj 500 MG in Sodium Chlor 0.9% Inj 250 ML IV.SIG SCH (22:14)
[2018-11-29 22:31] LABS: Anion Gap 9 meq/L (5-15); Aspartate Aminotransferase 22 U/L (15-37); Blood Urea Nitrogen 81 mg/dL (7-18); Calcium 7.8 mg/dL (8.5-10.1); Carbon Dioxide 19.9 meq/L (21.0-32.0); Chloride 113 meq/L (98-107); Glomerular Filtration Rate 11 mL/min (>89); Glucose,Random 97 mg/dL (74-106); Potassium 4.1 meq/L (3.5-5.1); Sodium 142 meq/L (136-145)
[2018-11-29 22:44] LABS: Alanine Aminotransferase 27 U/L (12-78); Alkaline Phosphatase 110 U/L (45-117)
[2018-11-30] MEDS: Sod Chloride 0.9% Inj 1,000 ML IV.CONT SCH ×4 (06:34→23:06)
[2018-11-30] MEDS ORDERED: Sod Chloride 0.9% Inj 1,000 ML IV.CONT PRN (09:45)
[2018-11-30] MEDS ORDERED: Sod Chloride 0.9% Inj 1,000 ML OTHER PRN ×2 (09:45)
[2018-11-30] MEDS ORDERED: Heparin 10,000 UNITS/10 ML Vial (for IV use) OTHER PRN (09:45)
[2018-11-30] MEDS ORDERED: Gelatin 12 MM/7 MM Topical Foam TOPICAL PRN (09:45)
[2018-11-30] MEDS ORDERED: Vancomycin Inj 1,000 MG in Sodium Chlor 0.9% Inj 250 ML IV.SIG SCH (11:00)
[2018-11-30] MEDS ORDERED: ceFAZolin 2 GM Premix Inj 2 GM/50 ML PIGGYBACK IV.SIG SCH (12:00)
[2018-11-30] MEDS ORDERED: Lidocaine 1%/Epinephrine 1:100,000 Inj 20 ML Vial ONE (13:43)
[2018-11-30] MEDS ORDERED: *Heparin 10,000 UNITS/10 ML Vial Periprocedural ONLY ONE (13:43)
[2018-11-30] MEDS ORDERED: fentaNYL Citrate Inj 250 MCG/5 ML Ampul ONE (13:51)
--- NOTE | 2018-11-30 15:40 | P.PNNP ---
Subjective Interval history: Seen in AM sitting up in chair. Denies any shortness of breath, chest pain, nausea, or vomiting. Creatinine last night remains elevated. <Mary Drake - Last Filed: 11/30/18 15:35> Physical Exam Vital signs: Vital Signs 11/29/18 16:00 11/29/18 20:00 11/29/18 23:15 Temperature 97.7 F 97.7 F 97.8 F Pulse Rate 72 68 71 Respiratory Rate 18 18 18 Blood Pressure 149/65 H 155/71 H 144/68 H Pulse Oximetry 100 99 97 11/30/18 00:00 11/30/18 03:50 11/30/18 04:00 Temperature 98 F Pulse Rate 84 69 83 Respiratory Rate 18 Blood Pressure 130/66 Pulse Oximetry 97 11/30/18 07:15 11/30/18 08:00 11/30/18 12:00 Temperature 98 F 97.5 F L Pulse Rate 69 70 69 Respiratory Rate 16 18 Blood Pressure 157/78 H 150/79 H Pulse Oximetry 98 100 Intake & Output 11/29/18 11/30/18 11/30/18 18:59 06:59 18:59 Intake Total 1480 / 1480 1830 / 1830 1300 / 1300 Output Total 600 / 600 Balance 1480 / 1480 1230 / 1230 1300 / 1300 Weight 109 kg Intake: IV 1000 / 1000 1350 / 1350 1300 / 1300 NS Inj 1,000 ML @ 84 mls/hr IV. 1000 / 1000 1000 / 1000 1000 / 1000 CONT .[id number] [facility] Rx#:[id number] Azithromycin Inj 500 MG In NS 250 / 250 Inj 250 ML @ 250 mls/hr IV.SIG Q24H [facility] Rx#:[id number] Vancomycin Inj 1,000 MG In NS 250 / 250 Inj 250 ML @ 250 mls/hr IV.SIG MAIN LINE STATION ENGINEER [facility] Rx#:[id number] Ancef 2 GM Premix Inj 2 gm In 50 / 50 50 ml @ 100 mls/hr IV.SIG MAIN LINE STATION ENGINEER [facility] Rx#:[id number] Rocephin Inj 1,000 MG In NS Inj 100 / 100 100 ML @ 200 mls/hr IV.SIG Q24H [facility] Rx#:[id number] Oral 480 / 480 480 / 480 Output: Urine 600 / 600 Other: # Voids 4 Date of Last Bowel Movement 11/29/18 11/29/18 11/30/18 # Bowel Movements 1 2 Narrative: GENERAL: Alert and oriented. SKIN: Warm and dry. NECK: Supple, trachea midline. No JVD CARDIOVASCULAR: Regular rate and rhythm without murmurs, gallops, or rubs. RESPIRATORY: Breath sounds equal bilaterally. No accessory muscle use. GASTROINTESTINAL: Abdomen soft, non-tender, distended. +BS MUSCULOSKELETAL: No cyanosis, Mild lower extremity edema. BACK: Nontender without obvious deformity. No CVA tenderness. <Mary Drake - Last Filed: 11/30/18 15:35> Vital signs: Vital Signs 12/02/18 00:00 12/02/18 04:00 12/02/18 08:00 Temperature 98.8 F 99.5 F 98.4 F Pulse Rate 81 96 H 101 H Respiratory Rate 18 20 Blood Pressure 138/63 115/56 L 115/57 L Pulse Oximetry 17 L 97 96 12/02/18 12:00 12/02/18 16:00 12/02/18 20:16 Temperature 98 F 98.1 F Pulse Rate 71 83 Respiratory Rate 18 18 Blood Pressure 122/67 151/63 H Pulse Oximetry 99 97 99 Intake & Output 12/02/18 12/02/18 12/03/18 06:59 18:59 06:59 Intake Total 1501 / 1501 1160 / 1160 Output Total 3000 / 3000 1200 / 1200 Balance -1499 / -1499 -40 / -40 Weight 112.7 kg Intake: IV 901 / 901 200 / 200 NS Inj 1,000 ML @ 84 mls/hr IV. 801 / 801 200 / 200 CONT .[id number] [facility] Rx#:[id number] Rocephin Inj 1,000 MG In NS Inj 100 / 100 100 ML @ 200 mls/hr IV.SIG Q24H [facility] Rx#:[id number] Oral 600 / 600 960 / 960 Output: Urine 1200 / 1200 Hemodialysis Amount 3000 / 3000 Other: # Bowel Movements 2 <Albaro Lisa - Last Filed: 12/02/18 21:15> Assessment and Plan - Assessment (1) Acute kidney failure Code(s): N17.9 - Acute kidney failure, unspecified Status: Acute Qualifiers: Acute renal failure type: unspecified Qualified Code(s): N17.9 - Acute kidney failure, unspecified Plan: Acute kidney injury with creatinine on admission of 5.37 which has improved to 5.22 on day of consult. Is not followed by loom tuner outpatient but creatinine in 2013 was elevated at 1.3 Most likely has CAREN on CKD but baseline creatinine unknown. US of abdomen showed kidneys with no acute findings. Urine negative for proteinuria. Serology pending. Avoid nephrotoxins and monitor accurate I+0 Patient told to bring previous labs. Creatinine remains elevated, May need HD if does not improve Patient seen and examined, agree with above. Creatinine remain elevated, UOP 600ml/24 hours Will proceed with hemodialysis orders placed Interventional consulted for permacath placement. Will need renal biopsy next week. (2) Acute hepatic encephalopathy Code(s): K72.00 - Acute and subacute hepatic failure without coma Status: Acute Plan: Ammonia level improving on lactulose. (3) Pneumonia Code(s): J18.9 - Pneumonia, unspecified organism Status: Acute Qualifiers: Pneumonia type: due to unspecified organism Laterality: left Lung location: lower lobe of lung Qualified Code(s): J18.1 - Lobar pneumonia, unspecified organism Plan: On antibiotics, renal dose if indicated. Chest Xray with patchy infiltrates. <Mary Drake - Last Filed: 11/30/18 15:35> - Assessment (1) Acute kidney failure Code(s): N17.9 - Acute kidney failure, unspecified Status: Acute Qualifiers: Acute renal failure type: unspecified Qualified Code(s): N17.9 - Acute kidney failure, unspecified Plan: Patient seen and examined, agree with above. Creatinine remain elevated and to start HD after getting PermCath. Will need kidney Biopsy next week. (2) Acute hepatic encephalopathy Code(s): K72.00 - Acute and subacute hepatic failure without coma Status: Acute (3) Pneumonia Code(s): J18.9 - Pneumonia, unspecified organism Status: Acute Qualifiers: Pneumonia type: due to unspecified organism Laterality: left Lung location: lower lobe of lung Qualified Code(s): J18.1 - Lobar pneumonia, unspecified organism <Albaro Lisa - Last Filed: 12/02/18 21:15>
--- NOTE | 2018-11-30 16:08 | P.RAD ---
Post Procedure Progress Note - Pre Procedure Diagnosis (1) Acute kidney failure - Post Procedure Diagnosis (1) Acute kidney failure - Procedure Information Procedure Date: 11/30/18 Supervising Radiologist: Juan Almonte MD Estimated blood loss (mL): 3 Anesthesia: Local, Analgesia, Conscious Sedation - Plan of Activity Patient to Unit: [facility] Patient Condition: Good See PACS Report for procedural detail/treatment. [facility] Radiology Procedures right Internal Jugular Hemodialysis Catheter Tunneled Placement Device: dual lumen Indian: 15
--- NOTE | 2018-11-30 16:44 | IR ---
EXAM DATE: 11/30/2018 3:23 PM EST AGE/SEX: 68 years / Male INDICATIONS: Patient presents with acute renal failure in need of dialysis catheter placement for he modialysis. CLINICAL DATA: This is the patient's initial encounter. Patient reports that signs and symptoms have been present for 3 days and indicates a pain score of 7/10. MEDICAL/SURGICAL HISTORY: . Cirrhosis, CAD, Diabetes, HTN, Hepatitis C. . Hernia repair. COMPARISON: No prior exams available for comparison. FLUORO TIME (min): 0.76 IMAGE SERIES: 2 RADIATION DOSE: 17 mGy CAK ACCESS SITE: Right internal jugular vein SEDATION TIME (min): 30 MEDICATION(S): 4.5 mg midazolam (Versed) IV 225 fentanyl (Sublimaze) IV Vancomycin within 2 hrs of procedure, Ancef (or alternative) within 1 hr of procedure. DEVICE(S): 15fr 28cm Palindrome . . PROCEDURE: 1. Ultrasound-guided venipuncture. 2. PermaCath placement. 3. Conscious sedation with continuous EKG and oximetry monitoring. The risks, benefits and alternatives to the procedure were explained and verbal and written consent w as obtained. The site was prepped in sterile fashion. Full sterile technique was used, including ca p, mask, sterile gloves and gown and a large sterile sheet. Hand hygiene and 2% chlorhexidine and/or betadine/alcohol prep was utilized per protocol for cutaneous antisepsis. Sterile gel and sterile p robe cover were utilized for ultrasound guidance. The skin and subcutaneous tissues were infiltrated with local anesthetic solution. With ultrasound and fluoroscopic guidance a dermatotomy was created over the prescribed vein. A micr opuncture set was used to access the targeted vein and serial dilatation was performed to accept the prescribed length catheter. A subcutaneous tunnel was created in a retrograde fashion the catheter w as pulled through the tunnel. The catheter was flushed and assembled and locked with heparin. The c atheter was sutured in place. Conscious sedation was performed with the prescribed dosages and duration as above in the presence of an independent trained radiology nurse to assist in the monitoring of the patient. EKG and oximetry remained stable throughout the procedure. The patient tolerated the procedure well and there were n o complications. The patient was sent to post anesthesia recovery in stable condition. CONCLUSION: Uncomplicated PermaCath placement as above. Electronically signed by: Juan Almonte MD Board Certified Radiologist 11/30/2018 4:43 PM EST
--- NOTE | 2018-11-30 17:28 | P.PNIM ---
Subjective Interval history: 68yo w m admtited with acute renal failure and hypoglycemia and ams now going for dialysis pt seen and examined doing ok, denies sob, no cp, no nv Physical Exam Vital signs: Vital Signs 11/29/18 20:00 11/29/18 23:15 11/30/18 00:00 Temperature 97.7 F 97.8 F Pulse Rate 68 71 84 Respiratory Rate 18 18 Blood Pressure 155/71 H 144/68 H Pulse Oximetry 99 97 11/30/18 03:50 11/30/18 04:00 11/30/18 07:15 Temperature 98 F Pulse Rate 69 83 69 Respiratory Rate 18 Blood Pressure 130/66 Pulse Oximetry 97 11/30/18 08:00 11/30/18 12:00 11/30/18 15:05 Temperature 98 F 97.5 F L 98.3 F Pulse Rate 70 69 76 Respiratory Rate 16 18 18 Blood Pressure 157/78 H 150/79 H 132/61 Pulse Oximetry 98 100 95 11/30/18 15:20 11/30/18 15:45 11/30/18 16:00 Temperature 97.4 F L Pulse Rate 78 80 73 Respiratory Rate 18 18 18 Blood Pressure 147/73 H 156/70 H 159/85 H Pulse Oximetry 94 L 95 100 Intake & Output 11/29/18 11/30/18 11/30/18 18:59 06:59 18:59 Intake Total 1480 / 1480 1830 / 1830 1300 / 1300 Output Total 600 / 600 Balance 1480 / 1480 1230 / 1230 1300 / 1300 Weight 109 kg Intake: IV 1000 / 1000 1350 / 1350 1300 / 1300 NS Inj 1,000 ML @ 84 mls/hr IV. 1000 / 1000 1000 / 1000 1000 / 1000 CONT .[id number] [facility] Rx#:[id number] Azithromycin Inj 500 MG In NS 250 / 250 Inj 250 ML @ 250 mls/hr IV.SIG Q24H [facility] Rx#:[id number] Vancomycin Inj 1,000 MG In NS 250 / 250 Inj 250 ML @ 250 mls/hr IV.SIG PEDIATRIC CARDIOLOGIST [facility] Rx#:[id number] Ancef 2 GM Premix Inj 2 gm In 50 / 50 50 ml @ 100 mls/hr IV.SIG PEDIATRIC CARDIOLOGIST [facility] Rx#:[id number] Rocephin Inj 1,000 MG In NS Inj 100 / 100 100 ML @ 200 mls/hr IV.SIG Q24H [facility] Rx#:[id number] Oral 480 / 480 480 / 480 Output: Urine 600 / 600 Other: # Voids 4 Date of Last Bowel Movement 11/29/18 11/29/18 11/30/18 # Bowel Movements 1 2 Narrative: Well-developed well-nourished obese 68-year-old gentleman Awake alert oriented no acute distress Heart S1-S2 regular Lungs clear decreased breath sounds no wheeze no rhonchi Abdomen soft obese nontender positive bowel sounds, protuberant no dt Extremities no clubbing cyanosis no significant edema Results Labs CBC & Chem 7: 11/29/18 10:21 11/29/18 21:07 Imaging Imaging: Impressions Central Venous Line 11/30/18 00:00 CONCLUSION: Uncomplicated PermaCath placement as above. Assessment and Plan (1) Acute kidney failure: Code(s): N17.9 - Acute kidney failure, unspecified Status: Acute (2) Acute hepatic encephalopathy: Code(s): K72.00 - Acute and subacute hepatic failure without coma Status: Acute (3) Pneumonia: Code(s): J18.9 - Pneumonia, unspecified organism Status: Acute Plan SYNCOPE/AMS due to metabolic encephalopathy due to hypoglycemia, renal failure, and pna etc - better back to baseline HYPOGLYCEMIA reactive hypoglycemia likely, due to liver failure, renal failure and poor diet and hx dm(states off meds for years now bs sugars controlled) better ,will get ha1c ACUTE RENAL FAILURE w metabolic acidosis- prerenal vs other us no obstruction , not improved, for dialysis after permacath placmenet PNEUMONIA LLL - cap vs aspiration - cont abx, clinically stable ACUTE HEPATIC AND METABOLIC ENCEPHALOPATHY (due to hypoglycemia) ammonia 100 clinically improved, on lactulose CIRRHOSIS alcoholic - suspect still drinks his mcv is elevated, and ammonia up, monitor for dts, cont thiamine and folate. SEVERE PROT VERN MALNUTURITION - alb 2.0 nutrition consult OBESITY - nutrition consult CAD hx clinically stable HEPATITIS C s/p interferon THROMBOCYTOPENIA - monitor plts, no bleeding likely due to cirrhosis, stable dvt prophylaxis - scd dispo - home w hh when stable. Progress Note: Quality VTE Deep Vein Thrombosis/Pulmonary Embolism Present on Admission: No _ (1) Acute kidney failure Qualifiers: Acute renal failure type: unspecified Qualified Code(s): N17.9 - Acute kidney failure, unspecified (2) Pneumonia Qualifiers: Aspiration pneumonia type: Laterality: left Lung location: lower lobe of lung Pneumonia type: due to unspecified organism Qualified Code(s): J18.1 - Lobar pneumonia, unspecified organism
[2018-11-30] MEDS: Heparin 10,000 UNITS/10 ML Vial (for IV use) OTHER PRN (20:33)
[2018-11-30 23:12] LABS: Hepatitits B Surface Antigen Nonreactive (Nonreactive)
[2018-11-30 23:42] LABS: Hepatitis A IgM Antibody Nonreactive (Nonreactive)
[2018-11-30] MEDS: Azithromycin Inj 500 MG in Sodium Chlor 0.9% Inj 250 ML IV.SIG SCH (23:47)
[2018-12-01 04:30] LABS: Baso % (Auto) 0.4 % (0.0-2.0); Eos # (Auto) 0.1 th/mm3 (0.0-0.4); Eos % (Auto) 2.3 % (0.0-4.0); Hematocrit 25.1 % (39.0-51.0); Hemoglobin 8.6 gm/dL (13.0-17.0); Lymph # (Auto) 1.5 th/mm3 (1.0-4.8); Mean Corpuscular HGB Conc 34.4 % (32.0-36.0); Mean Corpuscular Hemoglobin 36.9 pg (27.0-34.0); Mean Corpuscular Volume 107.4 fL (80.0-100.0); Mean Platelet Volume 10.3 fL (7.0-11.0); Mono # (Auto) 0.8 th/mm3 (0.0-0.9); Mono % (Auto) 12.7 % (0.0-8.0); Neut # (Auto) 3.7 th/mm3 (1.8-7.7); Neut % (Auto) 60.6 % (16.0-70.0); Platelet Count 58 th/mm3 (150-450); Red Blood Count 2.34 mil/mm3 (4.50-5.90); Red Cell Distribution Width 16.9 % (11.6-17.2); White Blood Count 6.2 th/mm3 (4.0-11.0)
[2018-12-01 04:59] LABS: Albumin 1.7 g/dL (3.4-5.0); Calcium 7.2 mg/dL (8.5-10.1); Carbon Dioxide 22.9 meq/L (21.0-32.0); Phosphorus 4.4 mg/dL (2.5-4.9); Potassium 3.8 meq/L (3.5-5.1)
[2018-12-01] MEDS: Sod Chloride 0.9% Inj 1,000 ML IV.CONT SCH ×2 (09:46→18:40)
--- NOTE | 2018-12-01 15:12 | P.PNNP ---
Subjective Interval history: Patient is sitting up in bed. Hemodialysis yesterday tolerated well. No shortness of breath, chest pain, nausea, or vomiting. <Mary Drake - Last Filed: 12/01/18 15:07> Physical Exam Vital signs: Vital Signs 11/30/18 15:20 11/30/18 15:45 11/30/18 16:00 Temperature 97.4 F L Pulse Rate 78 80 73 Respiratory Rate 18 18 18 Blood Pressure 147/73 H 156/70 H 159/85 H Pulse Oximetry 94 L 95 100 11/30/18 20:00 11/30/18 22:41 12/01/18 00:00 Temperature 97.7 F 97.7 F Pulse Rate 77 80 70 Respiratory Rate 20 18 Blood Pressure 158/67 H 130/61 Pulse Oximetry 97 100 100 12/01/18 04:00 12/01/18 04:05 12/01/18 08:00 Temperature 98.3 F 97.7 F Pulse Rate 73 80 74 Respiratory Rate 16 20 Blood Pressure 111/52 L 140/63 Pulse Oximetry 94 L 97 12/01/18 10:25 12/01/18 12:00 Temperature 97.5 F L Pulse Rate 70 Respiratory Rate 20 Blood Pressure 137/63 Pulse Oximetry 99 93 L Intake & Output 11/30/18 12/01/18 12/01/18 18:59 06:59 18:59 Intake Total 1300 / 1300 1890 / 1890 1000 / 1000 Output Total 1400 / 1400 2450 / 2450 Balance -100 / -100 -560 / -560 1000 / 1000 Intake: IV 1300 / 1300 1350 / 1350 1000 / 1000 NS Inj 1,000 ML @ 84 mls/hr IV. 1000 / 1000 1000 / 1000 1000 / 1000 CONT .[id number] [facility] Rx#:[id number] Azithromycin Inj 500 MG In NS 250 / 250 Inj 250 ML @ 250 mls/hr IV.SIG Q24H [facility] Rx#:[id number] Vancomycin Inj 1,000 MG In NS 250 / 250 Inj 250 ML @ 250 mls/hr IV.SIG SLASHER HAND [facility] Rx#:[id number] Ancef 2 GM Premix Inj 2 gm In 50 / 50 50 ml @ 100 mls/hr IV.SIG SLASHER HAND [facility] Rx#:[id number] Rocephin Inj 1,000 MG In NS Inj 100 / 100 100 ML @ 200 mls/hr IV.SIG Q24H [facility] Rx#:[id number] Oral 0 / 0 540 / 540 Output: Urine 1400 / 1400 450 / 450 Hemodialysis Amount 1999 Other: Date of Last Bowel Movement 11/30/18 11/30/18 # Bowel Movements 1 1 Narrative: GENERAL: Alert and oriented. SKIN: Warm and dry. NECK: Supple, trachea midline. No JVD CARDIOVASCULAR: Regular rate and rhythm without murmurs, gallops, or rubs. Permacath right chest wall. RESPIRATORY: Breath sounds equal bilaterally. No accessory muscle use. GASTROINTESTINAL: Abdomen soft, non-tender, distended. +BS MUSCULOSKELETAL: No cyanosis, Mild lower extremity edema. BACK: Nontender without obvious deformity. No CVA tenderness. <Mary Drake - Last Filed: 12/01/18 15:07> Vital signs: Vital Signs 12/01/18 00:00 12/01/18 04:00 12/01/18 04:05 Temperature 97.7 F 98.3 F Pulse Rate 70 73 80 Respiratory Rate 18 16 Blood Pressure 130/61 111/52 L Pulse Oximetry 100 94 L 12/01/18 08:00 12/01/18 10:25 12/01/18 12:00 Temperature 97.7 F 97.5 F L Pulse Rate 70 70 Respiratory Rate 20 20 Blood Pressure 140/63 137/63 Pulse Oximetry 97 99 93 L 12/01/18 16:00 12/01/18 20:00 Temperature 98 F 98.6 F Pulse Rate 76 91 H Respiratory Rate 20 18 Blood Pressure 142/63 H 138/64 Pulse Oximetry 98 99 Intake & Output 12/01/18 12/01/18 12/02/18 06:59 18:59 06:59 Intake Total 1890 / 1890 2960 / 2960 Output Total 2450 / 2450 1500 / 1500 3000 / 3000 Balance -560 / -560 1460 / 1460 -3000 / -3000 Intake: IV 1350 / 1350 1999 NS Inj 1,000 ML @ 84 mls/hr IV. 1000 / 1000 1999 CONT .[id number] [facility] Rx#:[id number] Azithromycin Inj 500 MG In NS 250 / 250 Inj 250 ML @ 250 mls/hr IV.SIG Q24H [facility] Rx#:[id number] Rocephin Inj 1,000 MG In NS Inj 100 / 100 100 ML @ 200 mls/hr IV.SIG Q24H [facility] Rx#:[id number] Oral 540 / 540 960 / 960 Output: Urine 450 / 450 1500 / 1500 Hemodialysis Amount 1999 / 1999 3000 / 3000 Other: Date of Last Bowel Movement 11/30/18 11/30/18 # Bowel Movements 1 2 <Albaro Lisa - Last Filed: 12/01/18 23:25> Assessment and Plan - Assessment (1) Acute kidney failure Code(s): N17.9 - Acute kidney failure, unspecified Status: Acute Qualifiers: Acute renal failure type: unspecified Qualified Code(s): N17.9 - Acute kidney failure, unspecified Plan: Acute kidney injury with creatinine on admission of 5.37 which has improved to 5.22 on day of consult. Is not followed by business analyst project manager outpatient but creatinine in 2013 was elevated at 1.3 Most likely has CAREN on CKD but baseline creatinine unknown. US of abdomen showed kidneys with no acute findings. Urine negative for proteinuria. Serology thus far negative Avoid nephrotoxins and monitor accurate I+O HD initiated on 11/30, permacath 11/30 Hemodialysis yesterday tolerated well with removal of 2 liters of fluid Hemodialysis for today. Kidney biopsy next week. (2) Acute hepatic encephalopathy Code(s): K72.00 - Acute and subacute hepatic failure without coma Status: Acute Plan: Ammonia level improving on lactulose. (3) Pneumonia Code(s): J18.9 - Pneumonia, unspecified organism Status: Acute Qualifiers: Pneumonia type: due to unspecified organism Laterality: left Lung location: lower lobe of lung Qualified Code(s): J18.1 - Lobar pneumonia, unspecified organism Plan: On antibiotics, renal dose if indicated. Chest Xray with patchy infiltrates. <Mary Drake - Last Filed: 12/01/18 15:07> - Assessment (1) Acute kidney failure Code(s): N17.9 - Acute kidney failure, unspecified Status: Acute Qualifiers: Acute renal failure type: unspecified Qualified Code(s): N17.9 - Acute kidney failure, unspecified Plan: Patient seen and examined, agree with above. Started on HD. Follow serology, will need kidney Biopsy. HD again today. (2) Acute hepatic encephalopathy Code(s): K72.00 - Acute and subacute hepatic failure without coma Status: Acute (3) Pneumonia Code(s): J18.9 - Pneumonia, unspecified organism Status: Acute Qualifiers: Pneumonia type: due to unspecified organism Laterality: left Lung location: lower lobe of lung Qualified Code(s): J18.1 - Lobar pneumonia, unspecified organism <Albaro Lisa - Last Filed: 12/01/18 23:25>
--- NOTE | 2018-12-01 16:04 | P.PNIM ---
Subjective Interval history: 68yo wm admitted with acute renal failure, hypoglycemia post syncope, had to start dialysis yesterday, pt seen and examined doing better, denies sob, no cp, no nv Physical Exam Vital signs: Vital Signs 11/30/18 20:00 11/30/18 22:41 12/01/18 00:00 Temperature 97.7 F 97.7 F Pulse Rate 77 80 70 Respiratory Rate 20 18 Blood Pressure 158/67 H 130/61 Pulse Oximetry 97 100 100 12/01/18 04:00 12/01/18 04:05 12/01/18 08:00 Temperature 98.3 F 97.7 F Pulse Rate 73 80 74 Respiratory Rate 16 20 Blood Pressure 111/52 L 140/63 Pulse Oximetry 94 L 97 12/01/18 10:25 12/01/18 12:00 Temperature 97.5 F L Pulse Rate 70 Respiratory Rate 20 Blood Pressure 137/63 Pulse Oximetry 99 93 L Intake & Output 11/30/18 12/01/18 12/01/18 18:59 06:59 18:59 Intake Total 1300 / 1300 1890 / 1890 1000 / 1000 Output Total 1400 / 1400 2450 / 2450 Balance -100 / -100 -560 / -560 1000 / 1000 Intake: IV 1300 / 1300 1350 / 1350 1000 / 1000 NS Inj 1,000 ML @ 84 mls/hr IV. 1000 / 1000 1000 / 1000 1000 / 1000 CONT .[id number] [facility] Rx#:[id number] Azithromycin Inj 500 MG In NS 250 / 250 Inj 250 ML @ 250 mls/hr IV.SIG Q24H [facility] Rx#:[id number] Vancomycin Inj 1,000 MG In NS 250 / 250 Inj 250 ML @ 250 mls/hr IV.SIG PREANALYTICS TEAM LEAD [facility] Rx#:[id number] Ancef 2 GM Premix Inj 2 gm In 50 / 50 50 ml @ 100 mls/hr IV.SIG PREANALYTICS TEAM LEAD [facility] Rx#:[id number] Rocephin Inj 1,000 MG In NS Inj 100 / 100 100 ML @ 200 mls/hr IV.SIG Q24H [facility] Rx#:[id number] Oral 0 / 0 540 / 540 Output: Urine 1400 / 1400 450 / 450 Hemodialysis Amount 1999 Other: Date of Last Bowel Movement 11/30/18 11/30/18 # Bowel Movements 1 1 Narrative: Well-developed well-nourished obese 68-year-old gentleman Awake alert oriented no acute distress Heart S1-S2 regular vas cath in right chest wall Lungs clear decreased breath sounds no wheeze no rhonchi Abdomen soft obese nontender positive bowel sounds, protuberant no dt Extremities no clubbing cyanosis no significant edema Results Labs CBC & Chem 7: 12/01/18 03:53 12/01/18 03:53 Imaging Imaging: Impressions Central Venous Line 11/30/18 00:00 CONCLUSION: Uncomplicated PermaCath placement as above. Assessment and Plan (1) Acute kidney failure: Code(s): N17.9 - Acute kidney failure, unspecified Status: Acute (2) Acute hepatic encephalopathy: Code(s): K72.00 - Acute and subacute hepatic failure without coma Status: Acute (3) Pneumonia: Code(s): J18.9 - Pneumonia, unspecified organism Status: Acute Plan SYNCOPE/AMS due to metabolic encephalopathy due to hypoglycemia, renal failure, and pna etc - better back to baseline HYPOGLYCEMIA reactive hypoglycemia likely, due to liver failure, renal failure and poor diet and hx dm(states off meds for years now bs sugars controlled) better ,will get ha1c ACUTE RENAL FAILURE w metabolic acidosis- prerenal vs other us no obstruction , s/p first dialysis, cont as per nephrology ,discussed w CM re outpt dialysis arrangements PNEUMONIA LLL - cap vs aspiration - cont abx, clinically stable improved can change to po axithromycin for 2 more days and stop rocephin after two more days. ACUTE HEPATIC AND METABOLIC ENCEPHALOPATHY (due to hypoglycemia) ammonia 100 clinically improved, on lactulose stable CIRRHOSIS alcoholic - suspect still drinks his mcv is elevated, and ammonia up, monitor for dts, cont thiamine and folate. SEVERE PROT VERN MALNUTURITION - alb 2.0 nutrition consult OBESITY - nutrition consult CAD hx clinically stable HEPATITIS C s/p interferon treatment THROMBOCYTOPENIA - monitor plts, no bleeding likely due to cirrhosis, stable dvt prophylaxis - scd dispo - home w hh when stable. Progress Note: Quality VTE Deep Vein Thrombosis/Pulmonary Embolism Present on Admission: No _ (1) Acute kidney failure Qualifiers: Acute renal failure type: unspecified Qualified Code(s): N17.9 - Acute kidney failure, unspecified (2) Pneumonia Qualifiers: Aspiration pneumonia type: Laterality: left Lung location: lower lobe of lung Pneumonia type: due to unspecified organism Qualified Code(s): J18.1 - Lobar pneumonia, unspecified organism
[2018-12-01] MEDS: Heparin 10,000 UNITS/10 ML Vial (for IV use) OTHER PRN (18:41)
[2018-12-02] MEDS: Sod Chloride 0.9% Inj 1,000 ML IV.CONT SCH ×2 (10:15→18:32)
[2018-12-02] MEDS: Azithromycin 250 MG Tablet PO SCH (10:16)
[2018-12-02 10:40] LABS: Baso % (Auto) 0.5 % (0.0-2.0); Eos # (Auto) 0.1 th/mm3 (0.0-0.4); Hematocrit 28.2 % (39.0-51.0); Hemoglobin 9.8 gm/dL (13.0-17.0); Lymph # (Auto) 1.5 th/mm3 (1.0-4.8); Lymph % (Auto) 21.2 % (9.0-44.0); Mean Corpuscular HGB Conc 34.6 % (32.0-36.0); Mean Corpuscular Volume 109.8 fL (80.0-100.0); Mean Platelet Volume 10.7 fL (7.0-11.0); Mono # (Auto) 0.8 th/mm3 (0.0-0.9); Mono % (Auto) 11.2 % (0.0-8.0); Neut # (Auto) 4.7 th/mm3 (1.8-7.7); Neut % (Auto) 65.1 % (16.0-70.0); Platelet Count 61 th/mm3 (150-450); Red Blood Count 2.57 mil/mm3 (4.50-5.90); Red Cell Distribution Width 17.5 % (11.6-17.2); White Blood Count 7.3 th/mm3 (4.0-11.0)
[2018-12-02 11:02] LABS: Albumin 2.1 g/dL (3.4-5.0); Calcium 7.7 mg/dL (8.5-10.1); Phosphorus 3.7 mg/dL (2.5-4.9); Potassium 3.9 meq/L (3.5-5.1)
[2018-12-02 11:40] LABS: Ovalocytes 1+
--- NOTE | 2018-12-02 17:42 | P.PNIM ---
Subjective Interval history: 68-year-old white male admitted with acute renal failure, hypoglycemia status post syncopal episode started on dialysis 2 days ago Patient seen and examined, he is sitting up at bedside, eating his lunch, he denies any chest pain or shortness of breath, no palpitations no dizziness, he wants to get up and take a shower, denies any nausea or vomiting. Physical Exam Vital signs: Vital Signs 12/01/18 20:00 12/02/18 00:00 12/02/18 04:00 Temperature 98.6 F 98.8 F 99.5 F Pulse Rate 82 81 96 H Respiratory Rate 18 18 Blood Pressure 138/64 138/63 115/56 L Pulse Oximetry 99 17 L 97 12/02/18 08:00 12/02/18 12:00 12/02/18 16:00 Temperature 98.4 F 98 F 98.1 F Pulse Rate 101 H 71 83 Respiratory Rate 20 18 18 Blood Pressure 115/57 L 122/67 151/63 H Pulse Oximetry 96 99 97 Intake & Output 12/01/18 12/02/18 12/02/18 18:59 06:59 18:59 Intake Total 2960 / 2960 1501 / 1501 200 / 200 Output Total 1500 / 1500 3000 / 3000 Balance 1460 / 1460 -1499 / -1499 200 / 200 Weight 112.7 kg Intake: IV 1999 901 / 901 200 / 200 NS Inj 1,000 ML @ 84 mls/hr IV. 1999 801 / 801 200 / 200 CONT .[id number] [facility] Rx#:[id number] Rocephin Inj 1,000 MG In NS Inj 100 / 100 100 ML @ 200 mls/hr IV.SIG Q24H [facility] Rx#:[id number] Oral 960 / 960 600 / 600 Output: Urine 1500 / 1500 Hemodialysis Amount 3000 / 3000 Other: Date of Last Bowel Movement 11/30/18 # Bowel Movements 2 Narrative: Well-developed well-nourished obese 68-year-old gentleman Awake alert oriented no acute distress Heart S1-S2 regular vas cath in right chest wall Lungs clear decreased breath sounds no wheeze no rhonchi Abdomen soft obese nontender positive bowel sounds, protuberant no dt Extremities no clubbing cyanosis no significant edema Results Labs CBC & Chem 7: 12/02/18 09:33 12/02/18 09:35 Assessment and Plan (1) Acute kidney failure: Code(s): N17.9 - Acute kidney failure, unspecified Status: Acute (2) Acute hepatic encephalopathy: Code(s): K72.00 - Acute and subacute hepatic failure without coma Status: Acute (3) Pneumonia: Code(s): J18.9 - Pneumonia, unspecified organism Status: Acute Plan SYNCOPE/AMS due to metabolic encephalopathy due to hypoglycemia, renal failure, and pna etc - better back to baseline HYPOGLYCEMIA reactive hypoglycemia likely, due to liver failure, renal failure and poor diet and hx dm(states off meds for years now bs sugars controlled) better ,will get ha1c ACUTE RENAL FAILURE w metabolic acidosis- prerenal vs other us no obstruction , dialysis cont as per nephrology ,discussed w CM re outpt dialysis arrangements, place ppd plan per nephrology is renal biopsy next week PNEUMONIA LLL - cap vs aspiration - cont abx, clinically stable improved can change to po azithromycin for 1 more days and stop rocephin after one more day. ACUTE HEPATIC AND METABOLIC ENCEPHALOPATHY (due to hypoglycemia) ammonia 100 clinically improved, on lactulose stable CIRRHOSIS alcoholic - suspect still drinks his mcv is elevated, and ammonia up, monitor for dts, cont thiamine and folate. SEVERE PROT VERN MALNUTURITION - alb 2.0 nutrition consult OBESITY - nutrition consult CAD hx clinically stable HEPATITIS C s/p interferon treatment THROMBOCYTOPENIA - monitor plts, no bleeding likely due to cirrhosis, continues to drop, monitor plts. dvt prophylaxis - scd dispo - home w hh when stable. Progress Note: Quality VTE Deep Vein Thrombosis/Pulmonary Embolism Present on Admission: No _ (1) Acute kidney failure Qualifiers: Acute renal failure type: unspecified Qualified Code(s): N17.9 - Acute kidney failure, unspecified (2) Pneumonia Qualifiers: Aspiration pneumonia type: Laterality: left Lung location: lower lobe of lung Pneumonia type: due to unspecified organism Qualified Code(s): J18.1 - Lobar pneumonia, unspecified organism
--- NOTE | 2018-12-02 21:16 | P.PNNP ---
Subjective Interval history: Patient is alert, seen in the afternoon, no SOB. Physical Exam Vital signs: Vital Signs 12/02/18 00:00 12/02/18 04:00 12/02/18 08:00 Temperature 98.8 F 99.5 F 98.4 F Pulse Rate 81 96 H 101 H Respiratory Rate 18 20 Blood Pressure 138/63 115/56 L 115/57 L Pulse Oximetry 17 L 97 96 12/02/18 12:00 12/02/18 16:00 12/02/18 20:00 Temperature 98 F 98.1 F Pulse Rate 71 83 75 Respiratory Rate 18 18 Blood Pressure 122/67 151/63 H Pulse Oximetry 99 97 12/02/18 20:16 Temperature Pulse Rate Respiratory Rate Blood Pressure Pulse Oximetry 99 Intake & Output 12/02/18 12/02/18 12/03/18 06:59 18:59 06:59 Intake Total 1501 / 1501 1160 / 1160 Output Total 3000 / 3000 1200 / 1200 Balance -1499 / -1499 -40 / -40 Weight 112.7 kg Intake: IV 901 / 901 200 / 200 NS Inj 1,000 ML @ 84 mls/hr IV. 801 / 801 200 / 200 CONT .[id number] [facility] Rx#:[id number] Rocephin Inj 1,000 MG In NS Inj 100 / 100 100 ML @ 200 mls/hr IV.SIG Q24H [facility] Rx#:[id number] Oral 600 / 600 960 / 960 Output: Urine 1200 / 1200 Hemodialysis Amount 3000 / 3000 Other: # Bowel Movements 2 Narrative: GENERAL: Alert and oriented. SKIN: Warm and dry. NECK: Supple, trachea midline. No JVD CARDIOVASCULAR: Regular rate and rhythm without murmurs, gallops, or rubs. Permacath right chest wall. RESPIRATORY: Breath sounds equal bilaterally. No accessory muscle use. GASTROINTESTINAL: Abdomen soft, non-tender, distended. +BS MUSCULOSKELETAL: No cyanosis, Mild lower extremity edema. BACK: Nontender without obvious deformity. No CVA tenderness. Assessment and Plan - Assessment (1) Acute kidney failure Code(s): N17.9 - Acute kidney failure, unspecified Status: Acute Qualifiers: Acute renal failure type: unspecified Qualified Code(s): N17.9 - Acute kidney failure, unspecified Plan: Patient was admitted with very high Creatinine. No baseline Creatinine available. Creatinine remain elevated and started HD after getting PermCath. Will need kidney Biopsy next week. Continue HD 3 times a week now. (2) Acute hepatic encephalopathy Code(s): K72.00 - Acute and subacute hepatic failure without coma Status: Acute Plan: Ammonia level improving on lactulose. (3) Pneumonia Code(s): J18.9 - Pneumonia, unspecified organism Status: Acute Qualifiers: Pneumonia type: due to unspecified organism Laterality: left Lung location: lower lobe of lung Qualified Code(s): J18.1 - Lobar pneumonia, unspecified organism Plan: On antibiotics, renal dose if indicated. Chest Xray with patchy infiltrates.
[2018-12-03] MEDS: Sod Chloride 0.9% Inj 1,000 ML IV.CONT SCH ×2 (08:29→21:06)
[2018-12-03] MEDS: Azithromycin 250 MG Tablet PO SCH (08:30)
[2018-12-03 10:56] LABS: Baso # (Auto) 0.1 th/mm3 (0.0-0.2); Baso % (Auto) 0.9 % (0.0-2.0); Eos # (Auto) 0.2 th/mm3 (0.0-0.4); Eos % (Auto) 2.3 % (0.0-4.0); Hematocrit 26.5 % (39.0-51.0); Lymph # (Auto) 1.3 th/mm3 (1.0-4.8); Lymph % (Auto) 18.9 % (9.0-44.0); Mean Corpuscular HGB Conc 34.1 % (32.0-36.0); Mean Corpuscular Hemoglobin 37.4 pg (27.0-34.0); Mean Corpuscular Volume 109.6 fL (80.0-100.0); Mean Platelet Volume 10.4 fL (7.0-11.0); Mono # (Auto) 0.9 th/mm3 (0.0-0.9); Mono % (Auto) 12.4 % (0.0-8.0); Neut # (Auto) 4.5 th/mm3 (1.8-7.7); Neut % (Auto) 65.5 % (16.0-70.0); Platelet Count 57 th/mm3 (150-450); Red Blood Count 2.42 mil/mm3 (4.50-5.90); Red Cell Distribution Width 17.3 % (11.6-17.2); White Blood Count 6.9 th/mm3 (4.0-11.0)
[2018-12-03 11:25] LABS: Albumin 1.9 g/dL (3.4-5.0); Phosphorus 3.8 mg/dL (2.5-4.9)
[2018-12-03 11:33] LABS: Calcium 7.4 mg/dL (8.5-10.1)
[2018-12-03] MEDS ORDERED: Tuberculin PPD 5 UNITS/0.1 ML Syringe I-DERMAL ONE (15:34)
--- NOTE | 2018-12-03 15:34 | P.PNIM ---
Subjective Interval history: 68-year-old white male admitted with acute renal failure, hypoglycemia status post syncopal episode started on dialysis 3 days ago, plan for renal biopsy next week Patient seen and examined, he is resting in bed, no palpitations no dizziness, he wants to get up and take a shower, no pain or sob Physical Exam Vital signs: Vital Signs 12/02/18 16:00 12/02/18 20:00 12/02/18 20:16 Temperature 98.1 F 98.4 F Pulse Rate 83 74 Respiratory Rate 18 16 Blood Pressure 151/63 H 131/60 Pulse Oximetry 97 100 99 12/03/18 00:00 12/03/18 04:00 12/03/18 08:00 Temperature 98 F 98 F Pulse Rate 83 91 H 75 Respiratory Rate 16 16 Blood Pressure 129/62 139/64 Pulse Oximetry 97 96 12/03/18 09:00 12/03/18 12:00 12/03/18 12:40 Temperature 98.1 F 98.1 F Pulse Rate 75 77 83 Respiratory Rate 16 16 Blood Pressure 113/67 129/66 Pulse Oximetry 96 96 Intake & Output 12/02/18 12/03/18 12/03/18 18:59 06:59 18:59 Intake Total 1160 / 1160 700 / 700 Output Total 1200 / 1200 3600 / 3600 Balance -40 / -40 -2900 / -2900 Intake: IV 200 / 200 100 / 100 NS Inj 1,000 ML @ 84 mls/hr IV. 200 / 200 CONT .[id number] [facility] Rx#:[id number] Rocephin Inj 1,000 MG In NS Inj 100 / 100 100 ML @ 200 mls/hr IV.SIG Q24H [facility] Rx#:[id number] Oral 960 / 960 600 / 600 Output: Urine 1200 / 1200 600 / 600 Hemodialysis Amount 3000 / 3000 Other: # Voids 4 Date of Last Bowel Movement 12/02/18 12/02/18 # Bowel Movements 2 2 Narrative: Well-developed well-nourished obese 68-year-old gentleman Awake alert oriented no acute distress Heart S1-S2 regular vas cath in right chest wall benign Lungs clear decreased breath sounds no wheeze no rhonchi Abdomen soft obese nontender positive bowel sounds, protuberant no dt Extremities no clubbing cyanosis no significant edema Results Labs CBC & Chem 7: 12/03/18 10:03 12/03/18 10:03 Assessment and Plan (1) Acute kidney failure: Code(s): N17.9 - Acute kidney failure, unspecified Status: Acute (2) Acute hepatic encephalopathy: Code(s): K72.00 - Acute and subacute hepatic failure without coma Status: Acute (3) Pneumonia: Code(s): J18.9 - Pneumonia, unspecified organism Status: Acute Plan SYNCOPE/AMS due to metabolic encephalopathy due to hypoglycemia, renal failure, and pna etc - resolved, back to baseline HYPOGLYCEMIA reactive hypoglycemia likely, due to liver failure, renal failure and poor diet and hx dm(states off meds for years now bs sugars controlled) better ,will get ha1c ACUTE RENAL FAILURE w metabolic acidosis- prerenal vs other us no obstruction , dialysis cont as per nephrology ,discussed w CM re outpt dialysis arrangements, place ppd plan per nephrology is renal biopsy next week PNEUMONIA LLL - cap vs aspiration - cont abx, clinically stable improved completed 5 days azithomycin and rocephin, can stop abx., cont is ACUTE HEPATIC AND METABOLIC ENCEPHALOPATHY (due to hypoglycemia) ammonia 100 clinically improved, on lactulose stable CIRRHOSIS alcoholic - \ mcv is elevated, and ammonia up, monitor for dts, cont thiamine and folate., lactulose SEVERE PROT VERN MALNUTURITION - alb 2.0 nutrition consult OBESITY - nutrition consult CAD hx clinically stable HEPATITIS C s/p interferon treatment THROMBOCYTOPENIA - monitor plts, no bleeding likely due to cirrhosis, continues to drop, monitor plts. dvt prophylaxis - scd dispo - home w when stable, planned renal biopsy next week and outpt dialysis arrangements, will place ppd Progress Note: Quality VTE Deep Vein Thrombosis/Pulmonary Embolism Present on Admission: No _ (1) Acute kidney failure Qualifiers: Acute renal failure type: unspecified Qualified Code(s): N17.9 - Acute kidney failure, unspecified (2) Pneumonia Qualifiers: Aspiration pneumonia type: Laterality: left Lung location: lower lobe of lung Pneumonia type: due to unspecified organism Qualified Code(s): J18.1 - Lobar pneumonia, unspecified organism
--- NOTE | 2018-12-03 19:12 | P.PNNP ---
Subjective Interval history: Patient is alert, no SOB, not in distress. Physical Exam Vital signs: Vital Signs 12/02/18 20:00 12/02/18 20:16 12/03/18 00:00 Temperature 98.4 F 98 F Pulse Rate 74 83 Respiratory Rate 16 16 Blood Pressure 131/60 129/62 Pulse Oximetry 100 99 97 12/03/18 04:00 12/03/18 08:00 12/03/18 09:00 Temperature 98 F 98.1 F Pulse Rate 91 H 75 75 Respiratory Rate 16 16 Blood Pressure 139/64 113/67 Pulse Oximetry 96 96 12/03/18 12:00 12/03/18 12:40 12/03/18 16:00 Temperature 98.1 F 98 F Pulse Rate 77 83 78 Respiratory Rate 16 16 Blood Pressure 129/66 114/56 L Pulse Oximetry 96 100 Intake & Output 12/03/18 12/03/18 12/04/18 06:59 18:59 06:59 Intake Total 700 / 700 600 / 600 Output Total 3600 / 3600 3600 / 3600 Balance -2900 / -2900 -3000 / -3000 Intake: IV 100 / 100 Rocephin Inj 1,000 MG In NS Inj 100 / 100 100 ML @ 200 mls/hr IV.SIG Q24H [facility] Rx#:[id number] Oral 600 / 600 600 / 600 Output: Urine 600 / 600 600 / 600 Hemodialysis Amount 3000 / 3000 3000 / 3000 Other: # Voids 4 4 Date of Last Bowel Movement 12/02/18 12/02/18 # Bowel Movements 2 2 Narrative: GENERAL: Alert and oriented. SKIN: Warm and dry. NECK: Supple, trachea midline. No JVD CARDIOVASCULAR: Regular rate and rhythm without murmurs, gallops, or rubs. Permacath right chest wall. RESPIRATORY: Breath sounds equal bilaterally. No accessory muscle use. GASTROINTESTINAL: Abdomen soft, non-tender, distended. +BS MUSCULOSKELETAL: No cyanosis, Mild lower extremity edema. BACK: Nontender without obvious deformity. No CVA tenderness. Assessment and Plan - Assessment (1) Acute kidney failure Code(s): N17.9 - Acute kidney failure, unspecified Status: Acute Qualifiers: Acute renal failure type: unspecified Qualified Code(s): N17.9 - Acute kidney failure, unspecified Plan: Patient was admitted with very high Creatinine. No baseline Creatinine available. Creatinine remain elevated and started HD after getting PermCath. Will need kidney Biopsy next week, possibly on . Continue HD 3 times a week now. Creatinine is still elevated. (2) Acute hepatic encephalopathy Code(s): K72.00 - Acute and subacute hepatic failure without coma Status: Acute Plan: Ammonia level improving on lactulose. (3) Pneumonia Code(s): J18.9 - Pneumonia, unspecified organism Status: Acute Qualifiers: Pneumonia type: due to unspecified organism Laterality: left Lung location: lower lobe of lung Qualified Code(s): J18.1 - Lobar pneumonia, unspecified organism Plan: On antibiotics, renal dose if indicated. Chest Xray with patchy infiltrates.
[2018-12-04] MEDS: Sod Chloride 0.9% Inj 1,000 ML IV.CONT SCH ×2 (06:00→14:56)
[2018-12-04 07:58] LABS: Baso % (Auto) 0.5 % (0.0-2.0); Eos # (Auto) 0.2 th/mm3 (0.0-0.4); Eos % (Auto) 2.4 % (0.0-4.0); Hematocrit 24.2 % (39.0-51.0); Hemoglobin 8.2 gm/dL (13.0-17.0); Lymph # (Auto) 1.5 th/mm3 (1.0-4.8); Lymph % (Auto) 19.8 % (9.0-44.0); Mean Corpuscular HGB Conc 33.9 % (32.0-36.0); Mean Corpuscular Hemoglobin 36.7 pg (27.0-34.0); Mean Corpuscular Volume 108.2 fL (80.0-100.0); Mean Platelet Volume 10.7 fL (7.0-11.0); Mono % (Auto) 12.4 % (0.0-8.0); Neut % (Auto) 64.9 % (16.0-70.0); Platelet Count 59 th/mm3 (150-450); Red Blood Count 2.24 mil/mm3 (4.50-5.90); Red Cell Distribution Width 17.5 % (11.6-17.2); White Blood Count 7.7 th/mm3 (4.0-11.0)
[2018-12-04 08:19] LABS: Albumin 1.8 g/dL (3.4-5.0); Carbon Dioxide 23.2 meq/L (21.0-32.0); Phosphorus 3.6 mg/dL (2.5-4.9)
[2018-12-04 08:22] LABS: Calcium 7.4 mg/dL (8.5-10.1)
[2018-12-04] MEDS: Azithromycin 250 MG Tablet PO SCH (09:55)
--- NOTE | 2018-12-04 13:15 | P.PNIM ---
Physical Exam Vital signs: Vital Signs 12/03/18 16:00 12/03/18 19:40 12/03/18 20:03 Temperature 98 F 98.4 F Pulse Rate 78 94 H 90 Respiratory Rate 16 17 Blood Pressure 114/56 L 145/65 H Pulse Oximetry 100 97 12/03/18 23:20 12/04/18 00:03 12/04/18 03:30 Temperature 98.6 F 98.8 F Pulse Rate 82 85 89 Respiratory Rate 17 17 Blood Pressure 144/69 H 134/57 L Pulse Oximetry 97 97 12/04/18 04:00 12/04/18 08:00 Temperature 98.6 F Pulse Rate 99 H 79 Respiratory Rate 20 Blood Pressure 130/63 Pulse Oximetry 96 Intake & Output 12/03/18 12/04/18 12/04/18 18:59 06:59 18:59 Intake Total 600 / 600 1131 / 1131 Output Total 3600 / 3600 Balance -3000 / -3000 1131 / 1131 Weight 112.2 kg Intake: IV 411 / 411 NS Inj 1,000 ML @ 84 mls/hr IV. 301 / 301 CONT .[id number] [facility] Rx#:[id number] Rocephin Inj 1,000 MG In NS Inj 110 / 110 100 ML @ 200 mls/hr IV.SIG Q24H [facility] Rx#:[id number] Oral 600 / 600 720 / 720 Output: Urine 600 / 600 Hemodialysis Amount 3000 / 3000 Other: # Voids 4 3 Date of Last Bowel Movement 12/02/18 12/03/18 12/03/18 # Bowel Movements 2 3 Narrative: Well-developed well-nourished obese 68-year-old gentleman Awake alert oriented no acute distress Heart S1-S2 regular vas cath in right chest wall benign Lungs clear decreased breath sounds no wheeze no rhonchi same Abdomen soft obese nontender positive bowel sounds, protuberant no dt Extremities no clubbing cyanosis no significant edema Results Labs CBC & Chem 7: 12/04/18 06:53 12/04/18 06:53 Assessment and Plan (1) Acute kidney failure: Code(s): N17.9 - Acute kidney failure, unspecified Status: Acute (2) Acute hepatic encephalopathy: Code(s): K72.00 - Acute and subacute hepatic failure without coma Status: Acute (3) Pneumonia: Code(s): J18.9 - Pneumonia, unspecified organism Status: Acute Plan SYNCOPE/AMS due to metabolic encephalopathy due to hypoglycemia, renal failure, and pna etc - resolved, back to baseline HYPOGLYCEMIA reactive hypoglycemia likely, due to liver failure, renal failure and poor diet and hx dm(states off meds for years now bs sugars controlled) better,HA1c 5. ACUTE RENAL FAILURE w metabolic acidosis- prerenal vs other us no obstruction , dialysis cont as per nephrology ,discussed w CM re outpt dialysis arrangements, place ppd plan per nephrology is renal biopsy this week, continue dialysis per nephrology PNEUMONIA LLL - cap vs aspiration - cont abx, clinically stable improved completed 5 days azithromycin and rocephin, can stop abx., cont is ACUTE HEPATIC AND METABOLIC ENCEPHALOPATHY (due to hypoglycemia) ammonia 100 clinically improved, on lactulose stable CIRRHOSIS alcoholic - \ mcv is elevated, and ammonia up, no DTs, cont thiamine and folate., lactulose SEVERE PROT VERN MALNUTRITION - alb 1.8 nutrition consult OBESITY - BMI 37.6 nutrition consult CAD hx clinically stable HEPATITIS C s/p interferon treatment w cirrhosis hx THROMBOCYTOPENIA - monitor plts, no bleeding likely due to cirrhosis, fairly stable ANEMIA -macrocytic, continued drop in hh, check occult blood, iron, heme eval. TSH borderline elevated, outpt followup, would not start synthroid now, can check free t3 t4. dvt prophylaxis - scd dispo - home w hh when stable, planned renal biopsy and outpt dialysis arrangements, Progress Note: Quality VTE Deep Vein Thrombosis/Pulmonary Embolism Present on Admission: No _ (1) Acute kidney failure Qualifiers: Acute renal failure type: unspecified Qualified Code(s): N17.9 - Acute kidney failure, unspecified (2) Pneumonia Qualifiers: Aspiration pneumonia type: Laterality: left Lung location: lower lobe of lung Pneumonia type: due to unspecified organism Qualified Code(s): J18.1 - Lobar pneumonia, unspecified organism
[2018-12-04 14:28] LABS: % Iron Saturation 29.5 % (20-50)
--- NOTE | 2018-12-04 16:11 | P.PNNP ---
Subjective Interval history: Seen in AM. No shortness of breath, nausea, vomiting or diarrhea. HD planned for today. <Mary Drake - Last Filed: 12/04/18 16:06> Physical Exam Vital signs: Vital Signs 12/03/18 19:40 12/03/18 20:03 12/03/18 23:20 Temperature 98.4 F 98.6 F Pulse Rate 94 H 90 82 Respiratory Rate 17 17 Blood Pressure 145/65 H 144/69 H Pulse Oximetry 97 97 12/04/18 00:03 12/04/18 03:30 12/04/18 04:00 Temperature 98.8 F Pulse Rate 85 89 99 H Respiratory Rate 17 Blood Pressure 134/57 L Pulse Oximetry 97 12/04/18 08:00 12/04/18 12:00 Temperature 98.6 F 98.2 F Pulse Rate 79 76 Respiratory Rate 20 20 Blood Pressure 130/63 139/67 Pulse Oximetry 96 99 Intake & Output 12/03/18 12/04/18 12/04/18 18:59 06:59 18:59 Intake Total 600 / 600 1131 / 1131 699 / 699 Output Total 3600 / 3600 Balance -3000 / -3000 1131 / 1131 699 / 699 Weight 112.2 kg Intake: IV 411 / 411 699 / 699 NS Inj 1,000 ML @ 84 mls/hr IV. 301 / 301 699 / 699 CONT .[id number] [facility] Rx#:[id number] Rocephin Inj 1,000 MG In NS Inj 110 / 110 100 ML @ 200 mls/hr IV.SIG Q24H [facility] Rx#:[id number] Oral 600 / 600 720 / 720 Output: Urine 600 / 600 Hemodialysis Amount 3000 / 3000 Other: # Voids 4 3 Date of Last Bowel Movement 12/02/18 12/03/18 12/03/18 # Bowel Movements 2 3 Narrative: GENERAL: Alert and oriented. SKIN: Warm and dry. NECK: Supple, trachea midline. No JVD CARDIOVASCULAR: Regular rate and rhythm without murmurs, gallops, or rubs. Permacath right chest wall. RESPIRATORY: Breath sounds equal bilaterally. No accessory muscle use. GASTROINTESTINAL: Abdomen soft, non-tender, distended. +BS MUSCULOSKELETAL: No cyanosis, Mild lower extremity edema. BACK: Nontender without obvious deformity. No CVA tenderness. <Mary Drake - Last Filed: 12/04/18 16:06> Vital signs: Vital Signs 12/03/18 19:40 12/03/18 20:03 12/03/18 23:20 Temperature 98.4 F 98.6 F Pulse Rate 94 H 90 82 Respiratory Rate 17 17 Blood Pressure 145/65 H 144/69 H Pulse Oximetry 97 97 12/04/18 00:03 12/04/18 03:30 12/04/18 04:00 Temperature 98.8 F Pulse Rate 85 89 99 H Respiratory Rate 17 Blood Pressure 134/57 L Pulse Oximetry 97 12/04/18 08:00 12/04/18 12:00 Temperature 98.6 F 98.2 F Pulse Rate 79 76 Respiratory Rate 20 20 Blood Pressure 130/63 139/67 Pulse Oximetry 96 99 Intake & Output 12/04/18 12/04/18 12/05/18 06:59 18:59 06:59 Intake Total 1131 / 1131 1179 / 1179 Balance 1131 / 1131 1179 / 1179 Weight 112.2 kg Intake: IV 411 / 411 699 / 699 NS Inj 1,000 ML @ 84 mls/hr IV. 301 / 301 699 / 699 CONT .[id number] [facility] Rx#:[id number] Rocephin Inj 1,000 MG In NS Inj 110 / 110 100 ML @ 200 mls/hr IV.SIG Q24H [facility] Rx#:[id number] Oral 720 / 720 480 / 480 Other: # Voids 3 Date of Last Bowel Movement 12/03/18 12/03/18 # Bowel Movements 3 <Albaro Lisa - Last Filed: 12/04/18 19:05> Assessment and Plan - Assessment (1) Acute kidney failure Code(s): N17.9 - Acute kidney failure, unspecified Status: Acute Qualifiers: Acute renal failure type: unspecified Qualified Code(s): N17.9 - Acute kidney failure, unspecified Plan: Acute kidney injury with creatinine on admission of 5.37 which has improved to 5.22 on day of consult. 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 US of abdomen showed kidneys with no acute findings. Urine negative for proteinuria. Avoid nephrotoxins and monitor accurate I+O HD initiated on 11/30, permacath 11/30 Creatinine remains elevated at 3.3 HD planned for today will remove fluid as tolerated Interventional consulted for kidney biopsy. (2) Acute hepatic encephalopathy Code(s): K72.00 - Acute and subacute hepatic failure without coma Status: Acute Plan: On lactulose. (3) Pneumonia Code(s): J18.9 - Pneumonia, unspecified organism Status: Acute Qualifiers: Pneumonia type: due to unspecified organism Laterality: left Lung location: lower lobe of lung Qualified Code(s): J18.1 - Lobar pneumonia, unspecified organism Plan: On antibiotics, renal dose if indicated. <Mary Drake - Last Filed: 12/04/18 16:06> - Assessment (1) Acute kidney failure Code(s): N17.9 - Acute kidney failure, unspecified Status: Acute Qualifiers: Acute renal failure type: unspecified Qualified Code(s): N17.9 - Acute kidney failure, unspecified Plan: Patient seen and examined, agree with above. Creatinine is 3.3, Kidney Biopsy in AM. HD today, watch for renal recovery. (2) Acute hepatic encephalopathy Code(s): K72.00 - Acute and subacute hepatic failure without coma Status: Acute (3) Pneumonia Code(s): J18.9 - Pneumonia, unspecified organism Status: Acute Qualifiers: Pneumonia type: due to unspecified organism Laterality: left Lung location: lower lobe of lung Qualified Code(s): J18.1 - Lobar pneumonia, unspecified organism <Albaro Lisa - Last Filed: 12/04/18 19:05>
[2018-12-05 07:17] LABS: Baso # (Auto) 0.1 th/mm3 (0.0-0.2); Baso % (Auto) 0.7 % (0.0-2.0); Eos # (Auto) 0.1 th/mm3 (0.0-0.4); Eos % (Auto) 1.5 % (0.0-4.0); Hematocrit 23.7 % (39.0-51.0); Hemoglobin 8.3 gm/dL (13.0-17.0); Lymph # (Auto) 1.3 th/mm3 (1.0-4.8); Lymph % (Auto) 17.6 % (9.0-44.0); Mean Corpuscular HGB Conc 35.2 % (32.0-36.0); Mean Corpuscular Hemoglobin 38.2 pg (27.0-34.0); Mean Corpuscular Volume 108.3 fL (80.0-100.0); Mean Platelet Volume 10.6 fL (7.0-11.0); Mono # (Auto) 0.9 th/mm3 (0.0-0.9); Neut # (Auto) 4.9 th/mm3 (1.8-7.7); Neut % (Auto) 68.2 % (16.0-70.0); Platelet Count 65 th/mm3 (150-450); Red Blood Count 2.19 mil/mm3 (4.50-5.90); Red Cell Distribution Width 16.9 % (11.6-17.2); White Blood Count 7.2 th/mm3 (4.0-11.0)
[2018-12-05 08:05] LABS: Platelet Morphology Normal (Normal)
[2018-12-05] MEDS: Azithromycin 250 MG Tablet PO SCH (08:20)
--- NOTE | 2018-12-05 11:09 | P.PNIM ---
Subjective Interval history: 68 yo male with alcoholic cirrhosis / hep C admitted with syncope / altered mental status found to be in acute renal failure now receiving temporary dialysis and undergoing nephrologic work-up. Today feels well, sitting up in bed eating breakfast. No CP/SOB, no abdominal pain. Having some diarrhea with 6 + BM daily. No fevers. Physical Exam Vital signs: Vital Signs 12/04/18 12:00 12/04/18 16:00 12/04/18 20:00 Temperature 98.2 F 98.2 F Pulse Rate 76 75 86 Respiratory Rate 20 18 Blood Pressure 139/67 116/56 L Pulse Oximetry 99 98 12/05/18 00:00 12/05/18 04:00 12/05/18 08:00 Temperature 99.6 F 98.5 F 99.6 F Pulse Rate 83 100 H 95 H Respiratory Rate 18 18 18 Blood Pressure 114/56 L 129/62 118/57 L Pulse Oximetry 97 106 H 94 L Intake & Output 12/04/18 12/05/18 12/05/18 18:59 06:59 18:59 Intake Total 1312 / 1312 340 / 340 Output Total 3000 / 3000 Balance 1312 / 1312 -2660 / -2660 Weight 112.2 kg Intake: IV 832 / 832 100 / 100 NS Inj 1,000 ML @ 84 mls/hr IV. 832 / 832 CONT .[id number] [facility] Rx#:[id number] Rocephin Inj 1,000 MG In NS Inj 100 / 100 100 ML @ 200 mls/hr IV.SIG Q24H [facility] Rx#:[id number] Oral 480 / 480 240 / 240 Output: Hemodialysis Amount 3000 / 3000 Other: # Voids 1 Date of Last Bowel Movement 12/03/18 12/04/18 12/04/18 Narrative: Gen: WDWN late middle-aged white male with central adiposity sitting up in bed in NAD Eyes: Non-icteric ENT: MMM CV: NRRR, normal S1/S2, no MRG Lungs: No dyspnea, CTAB, no crackles/wheezes Abd: Soft, obese, non-distended. MSK: 1+ non-pitting edema of BLE bilaterally Skin: Several verrucous papules scattered on lower extremities, skin changes suggestive of venous stasis Results - Labs CBC & Chem 7: 12/05/18 06:00 12/04/18 06:53 Laboratory Results - last 24 hr 12/04/18 12/04/18 12/04/18 06:53 12:42 16:30 WBC RBC Hgb Hct MCV MCH MCHC RDW Plt Count MPV Prelim Diff (Auto) Neut % (Auto) Lymph % (Auto) [place] % (Auto) Eos % (Auto) Baso % (Auto) Neut # (Auto) Lymph # (Auto) [place] # (Auto) Eos # (Auto) Baso # (Auto) WBC Differential Diff Scan Differential Comment Platelet Estimate Platelet Morphology POC Glucose 114 H 73 Iron 43 L TIBC 146 L % Saturation 29.5 Vitamin B12 1042 H 12/04/18 12/05/18 12/05/18 19:59 03:23 06:00 WBC 7.2 RBC 2.19 L Hgb 8.3 L Hct 23.7 L MCV 108.3 H MCH 38.2 H MCHC 35.2 RDW 16.9 Plt Count 65 L MPV 10.6 Prelim Diff (Auto) Slide review pending Neut % (Auto) 68.2 Lymph % (Auto) 17.6 [place] % (Auto) 12.0 H Eos % (Auto) 1.5 Baso % (Auto) 0.7 Neut # (Auto) 4.9 Lymph # (Auto) 1.3 [place] # (Auto) 0.9 Eos # (Auto) 0.1 Baso # (Auto) 0.1 WBC Differential . Diff Scan Auto diff confirmed Differential Comment . Platelet Estimate Low L Platelet Morphology Normal POC Glucose 77 72 Iron TIBC % Saturation Vitamin B12 12/05/18 08:28 WBC RBC Hgb Hct MCV MCH MCHC RDW Plt Count MPV Prelim Diff (Auto) Neut % (Auto) Lymph % (Auto) [place] % (Auto) Eos % (Auto) Baso % (Auto) Neut # (Auto) Lymph # (Auto) [place] # (Auto) Eos # (Auto) Baso # (Auto) WBC Differential Diff Scan Differential Comment Platelet Estimate Platelet Morphology POC Glucose 82 Iron TIBC % Saturation Vitamin B12 Assessment and Plan - Assessment (1) Cirrhosis Code(s): K74.60 - Unspecified cirrhosis of liver Status: Acute (2) Acute kidney failure Code(s): N17.9 - Acute kidney failure, unspecified Status: Acute (3) Acute hepatic encephalopathy Code(s): K72.00 - Acute and subacute hepatic failure without coma Status: Acute (4) Pneumonia Code(s): J18.9 - Pneumonia, unspecified organism Status: Acute - Plan SYNCOPE/AMS due to metabolic encephalopathy - resolved; due to hypoglycemia, renal failure, and pna etc HYPOGLYCEMIA - resolved; likely due to liver failure, renal failure and poor diet and hx dm(states off meds for years now bs sugars controlled) better,HA1c 5. Accu-cheks normal > 48 hours, will discontinue ACUTE RENAL FAILURE w metabolic acidosis- unclear etiology, pre-renal vs other, us showed no obstruction. Dialysis cont as per nephrology, discussed w CM re outpt dialysis arrangements, place ppd. plan per nephrology is renal biopsy today, continue dialysis per nephrology PNEUMONIA LLL - resolved; clinically improved completed 5 days azithromycin and rocephin, can stop abx., cont is ACUTE HEPATIC AND METABOLIC ENCEPHALOPATHY - resolved (due to hypoglycemia) ammonia 100 clinically improved, on lactulose stable. Consider holding lactulose due to diarrhea CIRRHOSIS alcoholic - no alcohol for 15 years but is known cirrhotic, hep C+; mcv is elevated, cont thiamine and folate., lactulose SEVERE PROT VERN MALNUTRITION - alb 1.8 nutrition consult OBESITY - BMI 37.6 nutrition consult CAD hx clinically stable HEPATITIS C s/p interferon treatment w cirrhosis hx THROMBOCYTOPENIA - monitor plts, no bleeding likely due to cirrhosis, fairly stable ANEMIA -macrocytic, continued drop in hh, check occult blood, iron, heme eval. Hypothyroidism borderline elevated, outpt followup, would not start synthroid now dvt prophylaxis - scd dispo - home pending renal biopsy result and nephrology recommendation; will need outpatient dialysis. - Attending Attestation The exam, history, and the medical decision-making described in the above note were completed with the assistance of the resident physician. I reviewed and agree with the findings presented. I attest that I had a [id number] encounter with the patient on the same day, and personally performed and documented my assessment and findings in the medical record. Patient reports he is feeling okay today. On exam, no acute distress. Normal S1 and S2. Regular rhythm. Lungs clear to auscultation bilaterally. Patient encephalopathy improving. He makes some urine. Still requiring HD. Appreciate nephrology following. Renal biopsy scheduled for today. (2) Acute kidney failure Qualifiers: Acute renal failure type: unspecified Qualified Code(s): N17.9 - Acute kidney failure, unspecified (4) Pneumonia Qualifiers: Pneumonia type: due to unspecified organism Laterality: left Lung location: lower lobe of lung Qualified Code(s): J18.1 - Lobar pneumonia, unspecified organism
--- NOTE | 2018-12-05 16:52 | P.PNNP ---
Subjective Interval history: Seen in AM with no shortness of breath, nausea, or vomiting. Plan for kidney biopsy today. Hemodialysis yesterday tolerated well. <Mary Drake - Last Filed: 12/05/18 16:43> Physical Exam Vital signs: Vital Signs 12/04/18 20:00 12/05/18 00:00 12/05/18 04:00 Temperature 98.2 F 99.6 F 98.5 F Pulse Rate 86 83 100 H Respiratory Rate 18 18 18 Blood Pressure 116/56 L 114/56 L 129/62 Pulse Oximetry 98 97 106 H 12/05/18 08:00 12/05/18 11:07 12/05/18 12:00 Temperature 99.6 F 99.2 F Pulse Rate 87 91 H Respiratory Rate 18 18 Blood Pressure 118/57 L 143/63 H Pulse Oximetry 94 L 98 97 12/05/18 16:00 Temperature 98.6 F Pulse Rate 89 Respiratory Rate 18 Blood Pressure 143/65 H Pulse Oximetry 97 Intake & Output 12/04/18 12/05/18 12/05/18 18:59 06:59 18:59 Intake Total 1312 / 1312 340 / 340 Output Total 3000 / 3000 Balance 1312 / 1312 -2660 / -2660 Weight 112.2 kg Intake: IV 832 / 832 100 / 100 NS Inj 1,000 ML @ 84 mls/hr IV. 832 / 832 CONT .[id number] [facility] Rx#:[id number] Rocephin Inj 1,000 MG In NS Inj 100 / 100 100 ML @ 200 mls/hr IV.SIG Q24H [facility] Rx#:[id number] Oral 480 / 480 240 / 240 Output: Hemodialysis Amount 3000 / 3000 Other: # Voids 1 Date of Last Bowel Movement 12/03/18 12/04/18 12/04/18 Narrative: GENERAL: Alert and oriented. SKIN: Warm and dry. NECK: Supple, trachea midline. No JVD CARDIOVASCULAR: Regular rate and rhythm without murmurs, gallops, or rubs. Permacath right chest wall. RESPIRATORY: Breath sounds equal bilaterally. No accessory muscle use. GASTROINTESTINAL: Abdomen soft, non-tender, distended. +BS MUSCULOSKELETAL: No cyanosis, Mild lower extremity edema. BACK: Nontender without obvious deformity. No CVA tenderness. <Mary Drake - Last Filed: 12/05/18 16:43> Vital signs: Vital Signs 12/05/18 00:00 12/05/18 04:00 12/05/18 08:00 Temperature 99.6 F 98.5 F 99.6 F Pulse Rate 83 100 H 87 Respiratory Rate 18 18 18 Blood Pressure 114/56 L 129/62 118/57 L Pulse Oximetry 97 106 H 94 L 12/05/18 11:07 12/05/18 12:00 12/05/18 16:00 Temperature 99.2 F 98.6 F Pulse Rate 91 H 83 Respiratory Rate 18 18 Blood Pressure 143/63 H 143/65 H Pulse Oximetry 98 97 97 Intake & Output 12/05/18 12/05/18 12/06/18 06:59 18:59 06:59 Intake Total 340 / 340 540 / 540 Output Total 3000 / 3000 Balance -2660 / -2660 540 / 540 Weight 112.2 kg Intake: IV 100 / 100 Rocephin Inj 1,000 MG In NS Inj 100 / 100 100 ML @ 200 mls/hr IV.SIG Q24H [facility] Rx#:[id number] Oral 240 / 240 540 / 540 Output: Hemodialysis Amount 3000 / 3000 Other: # Voids 1 Date of Last Bowel Movement 12/04/18 12/04/18 <Albaro Lisa - Last Filed: 12/05/18 20:56> Assessment and Plan - Assessment (1) Acute kidney failure Code(s): N17.9 - Acute kidney failure, unspecified Status: Acute Qualifiers: Acute renal failure type: unspecified Qualified Code(s): N17.9 - Acute kidney failure, unspecified Plan: Acute kidney injury with creatinine on admission of 5.37 which has improved to 5.22 on day of consult. Is not followed by [facility] outpatient but creatinine in 2014 was elevated at 1.3 Most likely has CAREN on CKD but baseline creatinine unknown. US of abdomen showed kidneys with no acute findings. Urine negative for proteinuria. Avoid nephrotoxins and monitor accurate I+O HD initiated on 11/30, permacath 11/30 Creatinine remains elevated Hemodialysis yesterday tolerated well with removal of 3 liters of fluid Interventional consulted for kidney biopsy planned for today Hemodialysis tomorrow. Will continue to monitor labs and watch for renal recovery. (2) Acute hepatic encephalopathy Code(s): K72.00 - Acute and subacute hepatic failure without coma Status: Acute Plan: On lactulose. (3) Pneumonia Code(s): J18.9 - Pneumonia, unspecified organism Status: Acute Qualifiers: Pneumonia type: due to unspecified organism Laterality: left Lung location: lower lobe of lung Qualified Code(s): J18.1 - Lobar pneumonia, unspecified organism Plan: On antibiotics, renal dose if indicated. <Mary Drake - Last Filed: 12/05/18 16:43> - Assessment (1) Acute kidney failure Code(s): N17.9 - Acute kidney failure, unspecified Status: Acute Qualifiers: Acute renal failure type: unspecified Qualified Code(s): N17.9 - Acute kidney failure, unspecified Plan: Patient seen and examined, agree with above. HD will be tomorrow. Will get Renal Biopsy for diagnosis and prognosis. (2) Acute hepatic encephalopathy Code(s): K72.00 - Acute and subacute hepatic failure without coma Status: Acute (3) Pneumonia Code(s): J18.9 - Pneumonia, unspecified organism Status: Acute Qualifiers: Pneumonia type: due to unspecified organism Laterality: left Lung location: lower lobe of lung Qualified Code(s): J18.1 - Lobar pneumonia, unspecified organism <Albaro Lisa - Last Filed: 12/05/18 20:56>
[2018-12-06 09:24] LABS: Baso # (Auto) 0.1 th/mm3 (0.0-0.2); Baso % (Auto) 0.7 % (0.0-2.0); Eos # (Auto) 0.1 th/mm3 (0.0-0.4); Eos % (Auto) 1.4 % (0.0-4.0); Hematocrit 22.8 % (39.0-51.0); Lymph # (Auto) 1.2 th/mm3 (1.0-4.8); Mean Corpuscular Hemoglobin 38.2 pg (27.0-34.0); Mean Corpuscular Volume 109.1 fL (80.0-100.0); Mean Platelet Volume 10.8 fL (7.0-11.0); Mono # (Auto) 1.2 th/mm3 (0.0-0.9); Mono % (Auto) 13.9 % (0.0-8.0); Platelet Count 67 th/mm3 (150-450); Red Blood Count 2.09 mil/mm3 (4.50-5.90); Red Cell Distribution Width 17.2 % (11.6-17.2); White Blood Count 8.6 th/mm3 (4.0-11.0)
[2018-12-06 09:49] LABS: Calcium 7.7 mg/dL (8.5-10.1); Carbon Dioxide 24.5 meq/L (21.0-32.0); Potassium 3.8 meq/L (3.5-5.1)
[2018-12-06 10:11] LABS: Ovalocytes 1+; Toxic Granulation 1+
[2018-12-06 10:12] LABS: Platelet Morphology Normal (Normal)
--- NOTE | 2018-12-06 11:26 | P.PNNP ---
Subjective Interval history: Seen during hemodialysis tolerating well. Kidney biopsy planned for today. Creatinine remains elevated at 3.5. <Mary Drake - Last Filed: 12/06/18 11:20> Physical Exam Vital signs: Vital Signs 12/05/18 12:00 12/05/18 16:00 12/05/18 20:00 Temperature 99.2 F 98.6 F 100.3 F H Pulse Rate 91 H 83 82 Respiratory Rate 18 18 18 Blood Pressure 143/63 H 143/65 H 128/57 L Pulse Oximetry 97 97 94 L 12/06/18 00:00 12/06/18 04:00 12/06/18 08:07 Temperature 100.5 F H 100.5 F H Pulse Rate 96 H 92 H Respiratory Rate 16 16 Blood Pressure 112/58 L 146/69 H Pulse Oximetry 95 95 95 12/06/18 08:10 Temperature 99.0 F Pulse Rate 93 H Respiratory Rate 20 Blood Pressure 126/58 L Pulse Oximetry 98 Intake & Output 12/05/18 12/06/18 12/06/18 18:59 06:59 18:59 Intake Total 540 / 540 Output Total 400 / 400 Balance 540 / 540 -400 / -400 Intake: Oral 540 / 540 Output: Urine 400 / 400 Other: Date of Last Bowel Movement 12/04/18 12/04/18 Narrative: GENERAL: Alert and oriented. SKIN: Warm and dry. NECK: Supple, trachea midline. No JVD CARDIOVASCULAR: Regular rate and rhythm without murmurs, gallops, or rubs. Permacath right chest wall. RESPIRATORY: Breath sounds equal bilaterally. No accessory muscle use. GASTROINTESTINAL: Abdomen soft, non-tender, distended. +BS MUSCULOSKELETAL: No cyanosis, Mild lower extremity edema. BACK: Nontender without obvious deformity. No CVA tenderness. <Mary Drake - Last Filed: 12/06/18 11:20> Vital signs: Vital Signs 12/06/18 00:00 12/06/18 04:00 12/06/18 08:00 Temperature 100.5 F H 100.5 F H Pulse Rate 96 H 92 H 85 Respiratory Rate 16 16 Blood Pressure 112/58 L 146/69 H Pulse Oximetry 95 95 12/06/18 08:07 12/06/18 08:10 12/06/18 12:00 Temperature 99.0 F 100.6 F H Pulse Rate 93 H 84 Respiratory Rate 20 20 Blood Pressure 126/58 L 128/58 L Pulse Oximetry 95 98 95 12/06/18 16:00 12/06/18 20:05 Temperature 98.9 F 99.0 F Pulse Rate 90 91 H Respiratory Rate 20 18 Blood Pressure 136/61 104/53 L Pulse Oximetry 91 L Intake & Output 12/06/18 12/06/18 12/07/18 06:59 18:59 06:59 Intake Total 240 / 240 Output Total 400 / 400 3000 / 3000 Balance -400 / -400 -2760 / -2760 Intake: Oral 240 / 240 Output: Urine 400 / 400 Hemodialysis Amount 3000 / 3000 Other: # Voids 2 Date of Last Bowel Movement 12/04/18 # Bowel Movements 2 <Albaro Lisa - Last Filed: 12/06/18 21:30> Assessment and Plan - Assessment (1) Acute kidney failure Code(s): N17.9 - Acute kidney failure, unspecified Status: Acute Qualifiers: Acute renal failure type: unspecified Qualified Code(s): N17.9 - Acute kidney failure, unspecified Plan: Acute kidney injury on CKD possibly prerenal US of abdomen showed kidneys with no acute findings. Urine negative for proteinuria. Avoid nephrotoxins and monitor accurate I+O HD initiated on 11/30, permacath 11/30 Creatinine remains elevated at 3.5, non oliguric Will continue to monitor labs and watch for renal recovery. Seen during HD , 2 K bath and plan to remove 3 liters of fluid Renal Biopsy for diagnosis and prognosis for today. (2) Acute hepatic encephalopathy Code(s): K72.00 - Acute and subacute hepatic failure without coma Status: Acute Plan: On lactulose. (3) Pneumonia Code(s): J18.9 - Pneumonia, unspecified organism Status: Acute Qualifiers: Pneumonia type: due to unspecified organism Laterality: left Lung location: lower lobe of lung Qualified Code(s): J18.1 - Lobar pneumonia, unspecified organism Plan: Resolved. Antibiotics complete <Mary Drake - Last Filed: 12/06/18 11:20> - Assessment (1) Acute kidney failure Code(s): N17.9 - Acute kidney failure, unspecified Status: Acute Qualifiers: Acute renal failure type: unspecified Qualified Code(s): N17.9 - Acute kidney failure, unspecified Plan: Patient seen and examined, agree with above. Need to get Renal Biopsy. HD to continue HD as needed. 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 Will watch for renal recovery. (2) Acute hepatic encephalopathy Code(s): K72.00 - Acute and subacute hepatic failure without coma Status: Acute (3) Pneumonia Code(s): J18.9 - Pneumonia, unspecified organism Status: Acute Qualifiers: Pneumonia type: due to unspecified organism Laterality: left Lung location: lower lobe of lung Qualified Code(s): J18.1 - Lobar pneumonia, unspecified organism <Albaro Lisa - Last Filed: 12/06/18 21:30>
--- NOTE | 2018-12-06 15:55 | P.PNIM ---
Subjective Interval history: Patient seen during hemodialysis. He is upset because he has been n.p.o. No other complaints otherwise. Kidney biopsy scheduled for today. Physical Exam Vital signs: Vital Signs 12/05/18 16:00 12/05/18 20:00 12/06/18 00:00 Temperature 98.6 F 100.3 F H 100.5 F H Pulse Rate 83 82 96 H Respiratory Rate 18 18 16 Blood Pressure 143/65 H 128/57 L 112/58 L Pulse Oximetry 97 94 L 95 12/06/18 04:00 12/06/18 08:07 12/06/18 08:10 Temperature 100.5 F H 99.0 F Pulse Rate 92 H 93 H Respiratory Rate 16 20 Blood Pressure 146/69 H 126/58 L Pulse Oximetry 95 95 98 Intake & Output 12/05/18 12/06/18 12/06/18 18:59 06:59 18:59 Intake Total 540 / 540 Output Total 400 / 400 3000 / 3000 Balance 540 / 540 -400 / -400 -3000 / -3000 Intake: Oral 540 / 540 Output: Urine 400 / 400 Hemodialysis Amount 3000 / 3000 Other: Date of Last Bowel Movement 12/04/18 12/04/18 Narrative: GENERAL: Obese male in no acute distress CARDIOVASCULAR: Normal rate and regular rhythm without murmurs, gallops, or rubs. RESPIRATORY: Good respiratory efforts. Breath sounds equal and clear to auscultation bilaterally. GASTROINTESTINAL: Abdomen obese, soft, non-tender, non-distended. Normal active bowel sounds MUSCULOSKELETAL: 1+ bilateral lower extremity edema. Venous stasis changes. NEURO: Alert & Oriented x4 to person, place, time, situation. Moves all ext x4 PSYCH: Appropriate mood and affect. Results Labs CBC & Chem 7: 12/06/18 07:44 12/06/18 07:44 Labs: Microbiology 12/05/18 06:30 Stool Stool Occult Blood ([facility]) - Final Hemoccult positive Assessment and Plan (1) Cirrhosis: Code(s): K74.60 - Unspecified cirrhosis of liver Status: Acute (2) Acute kidney failure: Code(s): N17.9 - Acute kidney failure, unspecified Status: Acute (3) Acute hepatic encephalopathy: Code(s): K72.00 - Acute and subacute hepatic failure without coma Status: Acute (4) Pneumonia: Code(s): J18.9 - Pneumonia, unspecified organism Status: Acute Plan 68-year-old male with metabolic encephalopathy secondary to renal failure and hypoglycemia. Encephalopathy resolved. Patient currently getting hemodialysis: SYNCOPE/AMS due to metabolic encephalopathy - resolved; due to hypoglycemia, renal failure, and pna etc HYPOGLYCEMIA - resolved; likely due to liver failure, renal failure and poor diet and hx dm(states off meds for years now bs sugars controlled) better,HA1c 5. Accu-cheks normal > 48 hours, will discontinue ACUTE RENAL FAILURE w metabolic acidosis- unclear etiology, pre-renal vs other, us showed no obstruction. Dialysis cont as per nephrology, discussed w CM re outpt dialysis arrangements, place ppd. Renal biopsy planned for today. Continue hemodialysis per nephrology. PNEUMONIA LLL - resolved; clinically improved completed 5 days azithromycin and rocephin, can stop abx., cont incentive spirometry. ACUTE HEPATIC AND METABOLIC ENCEPHALOPATHY - resolved (due to hypoglycemia) ammonia 100 clinically improved, on lactulose stable. Holding lactulose due to diarrhea CIRRHOSIS alcoholic - no alcohol for 15 years but is known cirrhotic, hep C+; mcv is elevated, cont thiamine and folate., lactulose SEVERE PROT VERN MALNUTRITION - alb 1.8 nutrition consult. OBESITY - BMI 37.6 nutrition consult CAD hx clinically stable HEPATITIS C s/p interferon treatment w cirrhosis hx THROMBOCYTOPENIA - monitor plts, no bleeding likely due to cirrhosis, fairly stable ANEMIA -probably anemia of chronic disease. Continue to monitor H&H. Iron level low but TIBC also low. Check ferritin. dvt prophylaxis - scd dispo - home pending renal biopsy result and nephrology recommendation; will need outpatient dialysis. Progress Note: Quality VTE Deep Vein Thrombosis/Pulmonary Embolism Present on Admission: No _ (1) Acute kidney failure Qualifiers: Acute renal failure type: unspecified Qualified Code(s): N17.9 - Acute kidney failure, unspecified (2) Cirrhosis Qualifiers: Ascites presence: Hepatic cirrhosis type: (3) Pneumonia Qualifiers: Aspiration pneumonia type: Laterality: left Lung location: lower lobe of lung Pneumonia type: due to unspecified organism Qualified Code(s): J18.1 - Lobar pneumonia, unspecified organism
[2018-12-07] MEDS ORDERED: Dextrose 50% in Water 50 ML Vial IV.PUSH PRN (03:55)
[2018-12-07 07:23] LABS: Hemoglobin 7.7 gm/dL (13.0-17.0); Mean Corpuscular HGB Conc 34.8 % (32.0-36.0); Mean Corpuscular Hemoglobin 37.9 pg (27.0-34.0); Mean Corpuscular Volume 108.9 fL (80.0-100.0); Mean Platelet Volume 10.2 fL (7.0-11.0); Platelet Count 68 th/mm3 (150-450); Red Blood Count 2.03 mil/mm3 (4.50-5.90); White Blood Count 8.3 th/mm3 (4.0-11.0)
[2018-12-07 08:01] LABS: Calcium 7.4 mg/dL (8.5-10.1); Carbon Dioxide 30.9 meq/L (21.0-32.0); Potassium 3.6 meq/L (3.5-5.1); Total Protein 5.2 g/dL (6.4-8.2)
[2018-12-07 08:05] LABS: Albumin 1.7 g/dL (3.4-5.0); Calcium-Albumin Corrected 9.2 mg/dL (8.5-10.1)
[2018-12-07] MEDS ORDERED: fentaNYL Citrate Inj 250 MCG/5 ML Ampul ONE (08:55)
[2018-12-07] MEDS ORDERED: Gelatin 12 MM/7 MM Topical Foam OTHER ONE (10:38)
[2018-12-07 10:53] LABS: Hemoglobin 7.9 gm/dL (13.0-17.0)
--- NOTE | 2018-12-07 11:16 | CT ---
EXAM DATE: 12/07/2018 10:32 AM EST AGE/SEX: 68 years / Male INDICATIONS: Right renal biopsy for function. CLINICAL DATA: This is the patient's initial encounter. Patient reports that signs and symptoms have been present for 1 day and indicates a pain score of 0/10. MEDICAL/SURGICAL HISTORY: Cirrhosis. Hypertension. Diabetes. renal failure, Hep C, dialysis None. COMPARISON: [facility], CT ABDOMEN W/O CONTRAST, 01/21/2015. . BIOPSY SITE: Right renal MEDICATION(S): 3mg midazolam (Versed) IV 150mcg fentanyl (Sublimaze) IV DEVICE(S): 18 gauge Temno core biopsy needle Four core specimen(s) sent to the laboratory for pathologic evaluation. . . PROCEDURE: CT guided Right renal biopsy Conscious sedation with continuous EKG and oximetry monitoring. Prior to the procedure informed consent was obtained. Any appropriate prior imaging studies were rev iewed. Using automated exposure control and adjustment of the mA and/or kV according to patient size, radiat ion dose was kept as low as reasonably achievable to obtain optimal diagnostic quality images. DICOM format image data is available electronically for review and comparison. The site was prepped in a sterile fashion. Full sterile technique was used, including cap, mask, quincy rile gloves and gown and a large sterile sheet. Hand hygiene and 2% chlorhexidine and/or betadine/al cohol prep was utilized per protocol for cutaneous antisepsis. The skin and subcutaneous tissues wer e infiltrated with local anesthetic solution. With CT guidance the previously identified target was localized. Biopsy was performed using the presc ribed needle as above. Adequate hemostasis was obtained with compression at the puncture site and Ge lfoam was put in the tract. Follow-up CT scan reveals no hemorrhage. The patient tolerated the procedure well and there were no complications. The patient was returned to the Radiology Outpatient Unit in stable condition. CONCLUSION: 1. Uncomplicated CT guided biopsy. Electronically signed by: Tod Hardy MD Board Certified Radiologist 12/07/2018 11:15 AM EST
--- NOTE | 2018-12-07 13:48 | P.PNNP ---
Subjective Interval history: Resting comfortably s/p right sided kidney biopsy. No shortness of breath, nausea, or vomiting. Creatinine at 3.2. <VidalMary - Last Filed: 12/07/18 13:44> Physical Exam Vital signs: Vital Signs 12/06/18 16:00 12/06/18 20:01 12/06/18 20:05 Temperature 98.9 F 99.0 F Pulse Rate 90 86 91 H Respiratory Rate 20 18 Blood Pressure 136/61 104/53 L Pulse Oximetry 91 L 12/06/18 23:15 12/07/18 00:00 12/07/18 03:56 Temperature 99.6 F Pulse Rate 86 91 H 82 Respiratory Rate 18 Blood Pressure 102/53 L Pulse Oximetry 96 12/07/18 04:00 12/07/18 08:00 12/07/18 10:25 Temperature 99.0 F 98.4 F 99.0 F Pulse Rate 85 83 78 Respiratory Rate 18 16 18 Blood Pressure 92/50 L 119/61 104/47 L Pulse Oximetry 96 94 L 91 L 12/07/18 10:40 12/07/18 11:10 12/07/18 11:40 Temperature Pulse Rate 80 78 78 Respiratory Rate 18 18 16 Blood Pressure 118/58 L 114/47 L 118/60 Pulse Oximetry 95 94 L 95 12/07/18 11:50 Temperature 97.5 F L Pulse Rate 88 Respiratory Rate 16 Blood Pressure 110/57 L Pulse Oximetry 97 Intake & Output 12/06/18 12/07/18 12/07/18 18:59 06:59 18:59 Intake Total 240 / 240 Output Total 3000 / 3000 500 / 500 Balance -2760 / -2760 -500 / -500 Weight 106.8 kg Intake: Oral 240 / 240 Output: Urine 500 / 500 Hemodialysis Amount 3000 / 3000 Other: # Voids 2 Date of Last Bowel Movement 12/06/18 # Bowel Movements 2 Narrative: GENERAL: Alert and oriented. SKIN: Warm and dry. NECK: Supple, trachea midline. No JVD CARDIOVASCULAR: Regular rate and rhythm without murmurs, gallops, or rubs. Permacath right chest wall. RESPIRATORY: Breath sounds equal bilaterally. No accessory muscle use. GASTROINTESTINAL: Abdomen soft, non-tender, distended. +BS MUSCULOSKELETAL: No cyanosis, Mild lower extremity edema. BACK: Nontender without obvious deformity. No CVA tenderness. <Mary Drake - Last Filed: 12/07/18 13:44> Vital signs: Vital Signs 12/06/18 23:15 12/07/18 00:00 12/07/18 03:56 Temperature 99.6 F Pulse Rate 86 91 H 82 Respiratory Rate 18 Blood Pressure 102/53 L Pulse Oximetry 96 12/07/18 04:00 12/07/18 08:00 12/07/18 10:25 Temperature 99.0 F 98.4 F 99.0 F Pulse Rate 85 83 78 Respiratory Rate 18 16 18 Blood Pressure 92/50 L 119/61 104/47 L Pulse Oximetry 96 94 L 91 L 12/07/18 10:40 12/07/18 11:10 12/07/18 11:40 Temperature Pulse Rate 80 78 78 Respiratory Rate 18 18 16 Blood Pressure 118/58 L 114/47 L 118/60 Pulse Oximetry 95 94 L 95 12/07/18 11:50 12/07/18 15:55 Temperature 97.5 F L 98.9 F Pulse Rate 88 86 Respiratory Rate 16 16 Blood Pressure 110/57 L 116/61 Pulse Oximetry 97 96 Intake & Output 12/07/18 12/07/18 12/08/18 06:59 18:59 06:59 Intake Total 460 / 460 Output Total 500 / 500 Balance -500 / -500 460 / 460 Weight 106.8 kg Intake: Oral 460 / 460 Output: Urine 500 / 500 Other: # Voids 3 Date of Last Bowel Movement 12/06/18 # Bowel Movements 3 <Albaro Lisa - Last Filed: 12/07/18 21:11> Assessment and Plan - Assessment (1) Acute kidney failure Code(s): N17.9 - Acute kidney failure, unspecified Status: Acute Qualifiers: Acute renal failure type: unspecified Qualified Code(s): N17.9 - Acute kidney failure, unspecified Plan: Acute kidney injury on CKD possibly prerenal in etiology US of abdomen showed kidneys with no acute findings. Urine negative for proteinuria. Avoid nephrotoxins and monitor accurate I+O HD initiated on 11/30, permacath 11/30 Creatinine remains at 3.2, non oliguric s/p Renal Biopsy for diagnosis and prognosis HD continue as needed, May need prison HD. Plan for HD tomorrow. Will continue to monitor labs and watch for renal recovery. (2) Acute hepatic encephalopathy Code(s): K72.00 - Acute and subacute hepatic failure without coma Status: Acute Plan: On lactulose. <Mary Drake - Last Filed: 12/07/18 13:44> - Assessment (1) Acute kidney failure Code(s): N17.9 - Acute kidney failure, unspecified Status: Acute Qualifiers: Acute renal failure type: unspecified Qualified Code(s): N17.9 - Acute kidney failure, unspecified Plan: Patient seen and examined, agree with above. Kidney Biopsy done. Follow the BMP. HD as needed. (2) Acute hepatic encephalopathy Code(s): K72.00 - Acute and subacute hepatic failure without coma Status: Acute <Albaro Lisa - Last Filed: 12/07/18 21:11>
--- NOTE | 2018-12-07 15:14 | P.PNIM ---
Subjective Interval history: Patient reports he is feeling okay today. He is hoping he will not need permanent dialysis. Status post renal biopsy today. Physical Exam Vital signs: Vital Signs 12/06/18 16:00 12/06/18 20:01 12/06/18 20:05 Temperature 98.9 F 99.0 F Pulse Rate 90 86 91 H Respiratory Rate 20 18 Blood Pressure 136/61 104/53 L Pulse Oximetry 91 L 12/06/18 23:15 12/07/18 00:00 12/07/18 03:56 Temperature 99.6 F Pulse Rate 86 91 H 82 Respiratory Rate 18 Blood Pressure 102/53 L Pulse Oximetry 96 12/07/18 04:00 12/07/18 08:00 12/07/18 10:25 Temperature 99.0 F 98.4 F 99.0 F Pulse Rate 85 83 78 Respiratory Rate 18 16 18 Blood Pressure 92/50 L 119/61 104/47 L Pulse Oximetry 96 94 L 91 L 12/07/18 10:40 12/07/18 11:10 12/07/18 11:40 Temperature Pulse Rate 80 78 78 Respiratory Rate 18 18 16 Blood Pressure 118/58 L 114/47 L 118/60 Pulse Oximetry 95 94 L 95 12/07/18 11:50 Temperature 97.5 F L Pulse Rate 88 Respiratory Rate 16 Blood Pressure 110/57 L Pulse Oximetry 97 Intake & Output 12/06/18 12/07/18 12/07/18 18:59 06:59 18:59 Intake Total 240 / 240 Output Total 3000 / 3000 500 / 500 Balance -2760 / -2760 -500 / -500 Weight 106.8 kg Intake: Oral 240 / 240 Output: Urine 500 / 500 Hemodialysis Amount 3000 / 3000 Other: # Voids 2 Date of Last Bowel Movement 12/06/18 # Bowel Movements 2 Narrative: GENERAL: Obese male in no acute distress CARDIOVASCULAR: Normal rate and regular rhythm without murmurs, gallops, or rubs. RESPIRATORY: Good respiratory efforts. Breath sounds equal and clear to auscultation bilaterally. GASTROINTESTINAL: Abdomen obese, soft, non-tender, non-distended. Normal active bowel sounds MUSCULOSKELETAL: 1+ bilateral lower extremity edema. Venous stasis changes. NEURO: Alert & Oriented x4 to person, place, time, situation. Moves all ext x4 PSYCH: Appropriate mood and affect. Results Labs CBC & Chem 7: 12/07/18 10:30 12/07/18 06:22 Imaging Imaging: Impressions Renal Biopsy CT 12/07/18 00:00 CONCLUSION: 1. Uncomplicated CT guided biopsy. Assessment and Plan (1) Acute kidney failure: Code(s): N17.9 - Acute kidney failure, unspecified Status: Acute (2) Acute hepatic encephalopathy: Code(s): K72.00 - Acute and subacute hepatic failure without coma Status: Acute Plan 68-year-old male with metabolic encephalopathy secondary to renal failure and hypoglycemia. Encephalopathy resolved. Patient currently requiring hemodialysis: SYNCOPE/AMS due to metabolic encephalopathy - resolved; due to hypoglycemia, renal failure, and pna etc ACUTE RENAL FAILURE w metabolic acidosis- unclear etiology, pre-renal vs other, us showed no obstruction. Dialysis cont as per nephrology, discussed w CM re outpt dialysis arrangements, place ppd. Status post renal biopsy today. Continue hemodialysis per nephrology. HYPOGLYCEMIA - resolved; likely due to liver failure, renal failure and poor diet and hx dm(states off meds for years now bs sugars controlled) better,HA1c 5. Accu-cheks normal > 48 hours, will discontinue PNEUMONIA LLL - resolved; clinically improved completed 5 days azithromycin and rocephin, can stop abx., cont incentive spirometry. ACUTE HEPATIC AND METABOLIC ENCEPHALOPATHY - resolved (due to hypoglycemia) ammonia 100 clinically improved, on lactulose stable. Holding lactulose due to diarrhea CIRRHOSIS alcoholic - no alcohol for 15 years but is known cirrhotic, hep C+; mcv is elevated, cont thiamine and folate., lactulose SEVERE PROT VERN MALNUTRITION - alb 1.8 nutrition consult. OBESITY - BMI 37.6 nutrition consult CAD hx clinically stable HEPATITIS C s/p interferon treatment w cirrhosis hx THROMBOCYTOPENIA - monitor plts, no bleeding likely due to cirrhosis, fairly stable ANEMIA -probably anemia of chronic disease. H&H stable today. Continue to monitor H&H. Iron level low but TIBC also low. Check ferritin. dvt prophylaxis - scd dispo -continue to monitor renal functions, unclear if the patient will require permanent dialysis. Appreciate input from nephrology. Progress Note: Quality VTE Deep Vein Thrombosis/Pulmonary Embolism Present on Admission: No _ (1) Acute kidney failure Qualifiers: Acute renal failure type: unspecified Qualified Code(s): N17.9 - Acute kidney failure, unspecified
[2018-12-07 19:35] LABS: Baso # (Auto) 0.1 th/mm3 (0.0-0.2); Baso % (Auto) 1.6 % (0.0-2.0); Eos # (Auto) 0.1 th/mm3 (0.0-0.4); Eos % (Auto) 1.1 % (0.0-4.0); Hematocrit 24.7 % (39.0-51.0); Hemoglobin 8.4 gm/dL (13.0-17.0); Lymph # (Auto) 1.1 th/mm3 (1.0-4.8); Lymph % (Auto) 15.4 % (9.0-44.0); Mean Corpuscular Hemoglobin 37.3 pg (27.0-34.0); Mean Corpuscular Volume 109.6 fL (80.0-100.0); Mean Platelet Volume 10.6 fL (7.0-11.0); Mono # (Auto) 0.7 th/mm3 (0.0-0.9); Mono % (Auto) 9.8 % (0.0-8.0); Neut # (Auto) 5.4 th/mm3 (1.8-7.7); Neut % (Auto) 72.1 % (16.0-70.0); Platelet Count 87 th/mm3 (150-450); Red Blood Count 2.26 mil/mm3 (4.50-5.90); White Blood Count 7.4 th/mm3 (4.0-11.0)
[2018-12-07 20:15] LABS: Eosinophils 1 % (0-4); Lymphocytes 16 % (9-44); Monocytes 12 % (0-8)
[2018-12-07 20:16] LABS: Ovalocytes 1+; Toxic Granulation 1+
[2018-12-07 20:18] LABS: Platelet Morphology Normal (Normal)
--- NOTE | 2018-12-07 21:54 | XR ---
EXAM DATE: 12/07/2018 9:40 PM EST AGE/SEX: 68 years / Male INDICATIONS: Left ankle pain from neropathy. CLINICAL DATA: This is the patient's initial encounter. Patient reports that signs and symptoms have been present for 2 days and indicates a pain score of 10/10. MEDICAL/SURGICAL HISTORY: Diabetes mellitus type II. None. COMPARISON: No prior exams available for comparison. FINDINGS: Bony structures are intact and in normal alignment. Joints are intact without dislocation or signifi cant arthropathy. Osseous density is normal. Soft tissues are unremarkable. No radiopaque foreign bodies seen. CONCLUSION: Negative for fracture or dislocation. Followup in 7-10 days is suggested if symptoms persist. Electronically signed by: Hunter Cornejo MD Board Certified Radiologist 12/07/2018 9:53 PM EST
[2018-12-08 06:20] LABS: Hematocrit 22.3 % (39.0-51.0); Hemoglobin 7.7 gm/dL (13.0-17.0); Mean Corpuscular HGB Conc 34.7 % (32.0-36.0); Mean Corpuscular Hemoglobin 37.9 pg (27.0-34.0); Mean Corpuscular Volume 109.2 fL (80.0-100.0); Mean Platelet Volume 10.2 fL (7.0-11.0); Platelet Count 80 th/mm3 (150-450); Red Blood Count 2.04 mil/mm3 (4.50-5.90); Red Cell Distribution Width 16.9 % (11.6-17.2); White Blood Count 8.3 th/mm3 (4.0-11.0)
[2018-12-08 06:56] LABS: Calcium 7.1 mg/dL (8.5-10.1); Carbon Dioxide 30.5 meq/L (21.0-32.0); Potassium 3.6 meq/L (3.5-5.1)
[2018-12-08 07:11] LABS: Albumin 1.8 g/dL (3.4-5.0); Calcium-Albumin Corrected 8.9 mg/dL (8.5-10.1)
--- NOTE | 2018-12-08 11:40 | P.PNIM ---
Subjective Interval history: 68 yo male with alcoholic cirrhosis / hep C admitted with syncope / altered mental status found to be in acute renal failure now receiving temporary dialysis and undergoing nephrologic work-up. Seen this morning in dialysis, feels well except for bilateral leg pain/burning. No CP/SOB. Physical Exam Vital signs: Vital Signs 12/07/18 11:40 12/07/18 11:50 12/07/18 12:00 Temperature 97.5 F L Pulse Rate 78 88 78 Respiratory Rate 16 16 Blood Pressure 118/60 110/57 L Pulse Oximetry 95 97 12/07/18 15:55 12/07/18 16:00 12/07/18 20:00 Temperature 98.9 F Pulse Rate 86 89 87 Respiratory Rate 16 Blood Pressure 116/61 Pulse Oximetry 96 12/07/18 20:45 12/07/18 23:40 12/08/18 00:00 Temperature 100.8 F H 98.9 F Pulse Rate 86 95 H 94 H Respiratory Rate 20 20 Blood Pressure 99/53 L 131/60 Pulse Oximetry 96 96 12/08/18 04:00 12/08/18 05:00 12/08/18 08:00 Temperature 99.2 F 98.5 F Pulse Rate 90 86 85 Respiratory Rate 20 18 Blood Pressure 102/51 L 114/55 L Pulse Oximetry 94 L 96 Intake & Output 12/07/18 12/08/18 12/08/18 18:59 06:59 18:59 Intake Total 460 / 460 120 / 120 Output Total 50 / 50 Balance 460 / 460 70 / 70 Weight 107.3 kg Intake: Oral 460 / 460 120 / 120 Output: Urine 50 / 50 Other: # Voids 3 Date of Last Bowel Movement 12/06/18 12/06/18 # Bowel Movements 3 0 Narrative: GENERAL: Obese male resting in bed in no acute distress CARDIOVASCULAR: Normal rate and regular rhythm without murmurs, gallops, or rubs. RESPIRATORY: Good respiratory efforts. Breath sounds equal and clear to auscultation bilaterally. GASTROINTESTINAL: Abdomen obese, soft, non-tender, non-distended. MUSCULOSKELETAL: 1+ bilateral non-pitting lower extremity edema. Venous stasis changes. NEURO: Alert & Oriented x4 to person, place, time, situation. Moves all ext x4 PSYCH: Appropriate mood and affect. Results - Labs CBC & Chem 7: 12/08/18 05:39 12/08/18 05:39 Laboratory Results - last 24 hr 12/07/18 12/07/18 12/08/18 06:22 17:47 05:39 WBC 7.4 8.3 RBC 2.26 L 2.04 L Hgb 8.4 L 7.7 L Hct 24.7 L 22.3 L MCV 109.6 H 109.2 H MCH 37.3 H 37.9 H MCHC 34.0 34.7 RDW 17.0 16.9 Plt Count 87 L 80 L MPV 10.6 10.2 Prelim Diff (Auto) Slide review pending Neut % (Auto) 72.1 H Lymph % (Auto) 15.4 Blair % (Auto) 9.8 H Eos % (Auto) 1.1 Baso % (Auto) 1.6 Neut # (Auto) 5.4 Lymph # (Auto) 1.1 Blair # (Auto) 0.7 Eos # (Auto) 0.1 Baso # (Auto) 0.1 WBC Differential Manual diff final Seg Neuts % (Manual) 70 Band Neuts % (Manual) 1 Lymphocytes % (Manual) 16 Monocytes % (Manual) 12 H Eosinophils % (Manual) 1 Abs Neuts (Manual) 5.3 Differential Comment . Toxic Granulation 1+ H Platelet Estimate Low L Platelet Morphology Normal Ovalocytes 1+ H Sodium Potassium Chloride Carbon Dioxide Anion Gap BUN Creatinine Estimated GFR Random Glucose Calcium Calcium Adj for Albumin Ferritin 409 H Albumin 12/08/18 05:39 WBC RBC Hgb Hct MCV MCH MCHC RDW Plt Count MPV Prelim Diff (Auto) Neut % (Auto) Lymph % (Auto) Blair % (Auto) Eos % (Auto) Baso % (Auto) Neut # (Auto) Lymph # (Auto) Blair # (Auto) Eos # (Auto) Baso # (Auto) WBC Differential Seg Neuts % (Manual) Band Neuts % (Manual) Lymphocytes % (Manual) Monocytes % (Manual) Eosinophils % (Manual) Abs Neuts (Manual) Differential Comment Toxic Granulation Platelet Estimate Platelet Morphology Ovalocytes Sodium 138 Potassium 3.6 Chloride 101 Carbon Dioxide 30.5 Anion Gap 7 BUN 37 H Creatinine 3.79 H Estimated GFR 16 L Random Glucose 74 Calcium 7.1 L* Calcium Adj for Albumin 8.9 Ferritin Albumin 1.8 L - Imaging Impressions Ankle X-Ray 12/07/18 00:00 CONCLUSION: Negative for fracture or dislocation. Followup in 7-10 days is suggested if symptoms persist. - Procedures CT-guided renal biopsy - 12/07/18 Assessment and Plan - Assessment (1) Acute kidney failure Code(s): N17.9 - Acute kidney failure, unspecified Status: Acute (2) Acute hepatic encephalopathy Code(s): K72.00 - Acute and subacute hepatic failure without coma Status: Acute - Plan 68-year-old male with metabolic encephalopathy secondary to renal failure and hypoglycemia. Encephalopathy resolved. Patient currently requiring hemodialysis: ACUTE RENAL FAILURE w metabolic acidosis- unclear etiology, pre-renal vs other, us showed no obstruction. Dialysis cont as per nephrology, discussed w CM re outpt dialysis arrangements, place ppd. Renal biopsy performed 12/07, awaiting results to determine dialysis plan long-term. CIRRHOSIS alcoholic - no alcohol for 15 years but is known cirrhotic, hep C+; mcv is elevated, cont thiamine and folate., lactulose SEVERE PROT VERN MALNUTRITION - alb 1.8 nutrition consult OBESITY - BMI 37.6 nutrition consult CAD hx clinically stable HEPATITIS C s/p interferon treatment w cirrhosis hx THROMBOCYTOPENIA - monitor plts, no bleeding likely due to cirrhosis, fairly stable ANEMIA -macrocytic, continued drop in hh, check occult blood, iron, heme eval. Hypothyroidism borderline elevated, outpt followup, would not start synthroid now dvt prophylaxis - scd dispo - home pending renal biopsy result and nephrology recommendation; will need outpatient dialysis. - Attending Attestation The exam, history, and the medical decision-making described in the above note were completed with the assistance of the resident physician. I reviewed and agree with the findings presented. I attest that I had a [id number] encounter with the patient on the same day, and personally performed and documented my assessment and findings in the medical record. Patient reports he is feeling okay today. He is anxious about when he will be able to go home. On exam, no acute distress. Normal S1 and S2. Regular rhythm. Lungs clear to auscultation bilaterally. Patient admitted for acute encephalopathy secondary to renal failure and hypoglycemia. Encephalopathy resolved. He is requiring hemodialysis. Watching for renal recovery. Status post renal biopsy. (1) Acute kidney failure Qualifiers: Acute renal failure type: unspecified Qualified Code(s): N17.9 - Acute kidney failure, unspecified
[2018-12-08] MEDS: Heparin 10,000 UNITS/10 ML Vial (for IV use) OTHER PRN (12:04)
--- NOTE | 2018-12-08 17:09 | P.PNNP ---
Subjective Interval history: Patient is alert, no SOB, eating well, not in distress. Physical Exam Vital signs: Vital Signs 12/07/18 20:00 12/07/18 20:45 12/07/18 23:40 Temperature 100.8 F H 98.9 F Pulse Rate 87 86 95 H Respiratory Rate 20 20 Blood Pressure 99/53 L 131/60 Pulse Oximetry 96 96 12/08/18 00:00 12/08/18 04:00 12/08/18 05:00 Temperature 99.2 F Pulse Rate 94 H 90 86 Respiratory Rate 20 Blood Pressure 102/51 L Pulse Oximetry 94 L 12/08/18 08:00 Temperature 98.5 F Pulse Rate 85 Respiratory Rate 18 Blood Pressure 114/55 L Pulse Oximetry 96 Intake & Output 12/07/18 12/08/18 12/08/18 18:59 06:59 18:59 Intake Total 460 / 460 120 / 120 Output Total 50 / 50 3000 / 3000 Balance 460 / 460 70 / 70 -3000 / -3000 Weight 107.3 kg Intake: Oral 460 / 460 120 / 120 Output: Urine 50 / 50 Hemodialysis Amount 3000 / 3000 Other: # Voids 3 Date of Last Bowel Movement 12/06/18 12/06/18 # Bowel Movements 3 0 Narrative: GENERAL: Alert and oriented. SKIN: Warm and dry. Bilateral lower extremities with darkened skin compatible with venous insufficiency NECK: Supple, trachea midline. No JVD CARDIOVASCULAR: Regular rate and rhythm without murmurs, gallops, or rubs. Permacath right chest wall. RESPIRATORY: Breath sounds equal bilaterally. No accessory muscle use. GASTROINTESTINAL: Abdomen soft, non-tender, distended. +BS MUSCULOSKELETAL: No cyanosis, Mild lower extremity edema. BACK: Nontender without obvious deformity. No CVA tenderness. Assessment and Plan - Assessment (1) Acute kidney failure Code(s): N17.9 - Acute kidney failure, unspecified Status: Acute Qualifiers: Acute renal failure type: unspecified Qualified Code(s): N17.9 - Acute kidney failure, unspecified Plan: Patient with advance renal disease, Started on HD. Has elevated BUN and Creatinine. Kidney Biopsy done, called by Pathology, Patient has advance Diabetic renal disease, with advance fibrosis. Most likely has End Stage renal disease. D/W the patient about HD and PD. He live with a room mate in an efficiency, will be difficult to keep supplies for PD. Will start arrangement for AVF and out patient HD. (2) Acute hepatic encephalopathy Code(s): K72.00 - Acute and subacute hepatic failure without coma Status: Acute Plan: On lactulose.
[2018-12-09 11:08] LABS: Hematocrit 22.3 % (39.0-51.0); Hemoglobin 7.7 gm/dL (13.0-17.0); Mean Corpuscular HGB Conc 34.5 % (32.0-36.0); Mean Corpuscular Hemoglobin 37.9 pg (27.0-34.0); Mean Corpuscular Volume 109.9 fL (80.0-100.0); Mean Platelet Volume 10.4 fL (7.0-11.0); Platelet Count 92 th/mm3 (150-450); Red Blood Count 2.03 mil/mm3 (4.50-5.90); Red Cell Distribution Width 16.7 % (11.6-17.2); White Blood Count 11.4 th/mm3 (4.0-11.0)
[2018-12-09 11:50] LABS: Calcium 7.1 mg/dL (8.5-10.1); Carbon Dioxide 29.7 meq/L (21.0-32.0); Potassium 3.3 meq/L (3.5-5.1)
[2018-12-09 12:12] LABS: Albumin 1.7 g/dL (3.4-5.0); Calcium-Albumin Corrected 8.9 mg/dL (8.5-10.1)
--- NOTE | 2018-12-09 13:03 | P.PNIM ---
Subjective Interval history: Patient reports he is feeling okay today. Has been having fevers. Physical Exam Vital signs: Vital Signs 12/08/18 16:00 12/08/18 20:00 12/09/18 00:00 Temperature 100.4 F H 102 F H 99.0 F Pulse Rate 95 H 97 H 94 H Respiratory Rate 20 20 20 Blood Pressure 103/51 L 93/63 L 115/52 L Pulse Oximetry 99 91 L 96 12/09/18 04:00 12/09/18 08:00 12/09/18 12:00 Temperature 101.1 F H 100.4 F H 100.9 F H Pulse Rate 108 H 88 97 H Respiratory Rate 20 18 18 Blood Pressure 105/51 L 96/54 L 97/47 L Pulse Oximetry 93 L 93 L 93 L Intake & Output 12/08/18 12/09/18 12/09/18 18:59 06:59 18:59 Intake Total 720 / 720 280 / 280 Output Total 3500 / 3500 Balance -2780 / -2780 280 / 280 Weight 107.2 kg Intake: Oral 720 / 720 280 / 280 Output: Urine 500 / 500 Hemodialysis Amount 3000 / 3000 Other: # Voids 2 Date of Last Bowel Movement 12/06/18 Narrative: GENERAL: Obese male resting in bed in no acute distress CARDIOVASCULAR: Normal rate and regular rhythm without murmurs, gallops, or rubs. RESPIRATORY: Good respiratory efforts. Breath sounds equal and clear to auscultation bilaterally. GASTROINTESTINAL: Abdomen obese, soft, non-tender, non-distended. MUSCULOSKELETAL: 1+ bilateral non-pitting lower extremity edema. Venous stasis changes. NEURO: Alert & Oriented x4 to person, place, time, situation. Moves all ext x4 PSYCH: Appropriate mood and affect. Results Labs CBC & Chem 7: 12/09/18 08:35 12/09/18 08:35 Procedures Procedures: CT-guided renal biopsy - 12/07/18 Assessment and Plan (1) Acute kidney failure: Code(s): N17.9 - Acute kidney failure, unspecified Status: Acute (2) Acute hepatic encephalopathy: Code(s): K72.00 - Acute and subacute hepatic failure without coma Status: Acute Plan 68-year-old male with metabolic encephalopathy secondary to renal failure and hypoglycemia. Encephalopathy resolved. Patient currently requiring hemodialysis: ACUTE RENAL FAILURE w metabolic acidosis- unclear etiology, pre-renal vs other, us showed no obstruction. Dialysis cont as per nephrology, Renal biopsy performed 12/07, -Continue to monitor for return of renal functions. FEVER - We will obtain blood cultures, chest x-ray, urinalysis. - We will start him on Rocephin for now. CIRRHOSIS alcoholic - no alcohol for 15 years but is known cirrhotic, hep C+; mcv is elevated, cont thiamine and folate, lactulose SEVERE PROT VERN MALNUTRITION - alb 1.8 nutrition consult OBESITY - BMI 37.6 nutrition consult CAD hx clinically stable HEPATITIS C s/p interferon treatment w cirrhosis hx THROMBOCYTOPENIA - monitor plts, no bleeding likely due to cirrhosis, fairly stable ANEMIA -macrocytic, continued drop in hh, check occult blood, iron, heme eval. Hypothyroidism borderline elevated, outpt followup, would not start Synthroid now dvt prophylaxis - scd dispo -continue current treatment. Monitor for renal recovery. May need permanent dialysis. Progress Note: Quality VTE Deep Vein Thrombosis/Pulmonary Embolism Present on Admission: No _ (1) Acute kidney failure Qualifiers: Acute renal failure type: unspecified Qualified Code(s): N17.9 - Acute kidney failure, unspecified
[2018-12-09] MEDS ORDERED: Potassium Chloride Inj 10 MEQ in Sod Chloride 0.9% Inj 1,000 ML IV.CONT SCH (15:00)
--- NOTE | 2018-12-09 15:38 | XR ---
EXAM DATE: 12/09/2018 3:32 PM EST AGE/SEX: 68 years / Male INDICATIONS: Fever. CLINICAL DATA: This is the patient's subsequent encounter. Patient reports that signs and symptoms h ave been present for 2 days and indicates a pain score of 0/10. MEDICAL/SURGICAL HISTORY: . Cirrhosis. Hypertension. Diabetes. Renal failure. Hep C. Dialysis. None. COMPARISON: [facility] [place], CHEST 1V SINGLE AP, 11/27/2018. . FINDINGS: Single AP view the chest. Dual-lumen right IJ central venous catheter is now in place with the tip at the cavoatrial junction. No evidence of pneumothorax. Pulmonary vascular congestion and mild interst itial bilateral pulmonary opacity noted. Small bilateral pleural effusions. Cardiac silhouette unchan ged. CONCLUSION: 1. Right sided dual-lumen IJ central venous catheter in place. 2. No evidence of pneumothorax. 3. Mild pulmonary vascular congestion and small bilateral pleural effusions. Electronically signed by: Michel Jc MD Board Certified Radiologist 12/09/2018 3:37 PM EST
--- NOTE | 2018-12-09 15:59 | P.PNNP ---
Subjective Interval history: No complaints at this time. Last hemodialysis was Tuesday, 3 L removed. History of hep C, alcoholic cirrhosis. He states about 6 months ago he was told he no longer had hepatitis C. status post renal biopsy <Anabel Justice - Last Filed: 12/09/18 15:52> Physical Exam Vital signs: Vital Signs 12/08/18 16:00 12/08/18 20:00 12/09/18 00:00 Temperature 100.4 F H 102 F H 99.0 F Pulse Rate 95 H 97 H 94 H Respiratory Rate 20 20 20 Blood Pressure 103/51 L 93/63 L 115/52 L Pulse Oximetry 99 91 L 96 12/09/18 04:00 12/09/18 08:00 12/09/18 12:00 Temperature 101.1 F H 100.4 F H 100.9 F H Pulse Rate 108 H 88 97 H Respiratory Rate 20 18 18 Blood Pressure 105/51 L 96/54 L 97/47 L Pulse Oximetry 93 L 93 L 93 L Intake & Output 12/08/18 12/09/18 12/09/18 18:59 06:59 18:59 Intake Total 720 / 720 280 / 280 Output Total 3500 / 3500 Balance -2780 / -2780 280 / 280 Weight 107.2 kg Intake: Oral 720 / 720 280 / 280 Output: Urine 500 / 500 Hemodialysis Amount 3000 / 3000 Other: # Voids 2 Date of Last Bowel Movement 12/06/18 Narrative: GENERAL: Alert and oriented. SKIN: Warm and dry. Bilateral lower extremities with darkened skin compatible with venous insufficiency NECK: Supple, trachea midline. No JVD CARDIOVASCULAR: Regular rate and rhythm without murmurs, gallops, or rubs. Permacath right chest wall. RESPIRATORY: Breath sounds equal bilaterally. No accessory muscle use. GASTROINTESTINAL: Abdomen soft, non-tender, distended. +BS MUSCULOSKELETAL: No cyanosis, Mild lower extremity edema. BACK: Nontender without obvious deformity. No CVA tenderness. <Anabel Justice - Last Filed: 12/09/18 15:52> Vital signs: Vital Signs 12/08/18 20:00 12/09/18 00:00 12/09/18 04:00 Temperature 102 F H 99.0 F 101.1 F H Pulse Rate 97 H 94 H 108 H Respiratory Rate 20 20 20 Blood Pressure 93/63 L 115/52 L 105/51 L Pulse Oximetry 91 L 96 93 L 12/09/18 08:00 12/09/18 12:00 12/09/18 16:00 Temperature 100.4 F H 100.9 F H 99.7 F H Pulse Rate 88 97 H 91 H Respiratory Rate 18 18 18 Blood Pressure 96/54 L 97/47 L 121/52 L Pulse Oximetry 93 L 93 L 95 Intake & Output 12/08/18 12/09/18 12/09/18 18:59 06:59 18:59 Intake Total 720 / 720 280 / 280 1080 / 1080 Output Total 3500 / 3500 Balance -2780 / -2780 280 / 280 1080 / 1080 Weight 107.2 kg Intake: IV 100 / 100 Rocephin Inj 1,000 MG In NS Inj 100 / 100 100 ML @ 200 mls/hr IV.SIG Q12H RACHEL Rx#:[id number] Oral 720 / 720 280 / 280 480 / 480 Other 500 / 500 Output: Urine 500 / 500 Hemodialysis Amount 3000 / 3000 Other: # Voids 2 2 Date of Last Bowel Movement 12/06/18 12/09/18 <Cheikh Simms - Last Filed: 12/09/18 18:55> Assessment and Plan - Assessment (1) Acute kidney failure Code(s): N17.9 - Acute kidney failure, unspecified Status: Acute Qualifiers: Acute renal failure type: unspecified Qualified Code(s): N17.9 - Acute kidney failure, unspecified Plan: Patient last dialysis on Tuesday, 3 L removed Started 11/30, permacath placed. According to documentation voided about 550 yesterday. No urine documented for today, states he is voiding No proteinuria seen status/post renal biopsy, 12/07 -Continue to monitor BMP -Monitor volume status, strict I's and O's -Continue hemodialysis per Dr. Lisa as needed (2) Acute hepatic encephalopathy Code(s): K72.00 - Acute and subacute hepatic failure without coma Status: Acute Plan: On lactulose. <Dayton,Anabel - Last Filed: 12/09/18 15:52> - Assessment (1) Acute kidney failure Code(s): N17.9 - Acute kidney failure, unspecified Status: Acute Qualifiers: Acute renal failure type: unspecified Qualified Code(s): N17.9 - Acute kidney failure, unspecified (2) Acute hepatic encephalopathy Code(s): K72.00 - Acute and subacute hepatic failure without coma Status: Acute - Attending Attestation I have seen and examined him and agree with above assessment and plan, patient had kidney biopsy Continue to monitor Hemodialysis next on Tuesday <Cheikh Simms - Last Filed: 12/09/18 18:55>
[2018-12-09 20:19] LABS: Bacteria,Urine Rare /hpf; Bilirubin,Urine Negative (Negative); Clarity,Urine Cloudy (Clear); Color,Urine Amber (Yellw/Straw); Glucose,Urine (UA) Negative (Negative); Leukocyte Esterase,Urine Small (Negative); Mucus,Urine Few /lpf (Occasional); Nitrite,Urine Negative (Negative); Specific Gravity,Urine 1.014 (1.002-1.035); Squamous Epithelial Cell,Urine 1 /hpf (0-5)
[2018-12-10 09:56] LABS: Hematocrit 22.1 % (39.0-51.0); Hemoglobin 7.5 gm/dL (13.0-17.0); Mean Corpuscular HGB Conc 34.1 % (32.0-36.0); Mean Corpuscular Hemoglobin 37.5 pg (27.0-34.0); Mean Platelet Volume 10.1 fL (7.0-11.0); Platelet Count 94 th/mm3 (150-450); Red Blood Count 2.01 mil/mm3 (4.50-5.90); Red Cell Distribution Width 16.9 % (11.6-17.2); White Blood Count 11.9 th/mm3 (4.0-11.0)
[2018-12-10 10:19] LABS: Calcium 7.5 mg/dL (8.5-10.1); Carbon Dioxide 26.2 meq/L (21.0-32.0); Potassium 3.3 meq/L (3.5-5.1)
--- NOTE | 2018-12-10 14:52 | P.PNIM ---
Subjective Interval history: Patient reports he is doing okay today. He states he is urinating some. T-max 100.1 Physical Exam Vital signs: Vital Signs 12/09/18 16:00 12/09/18 20:00 12/10/18 00:00 Temperature 99.7 F H 100.6 F H Pulse Rate 92 H 110 H 93 H Respiratory Rate 18 16 Blood Pressure 121/52 L 101/51 L Pulse Oximetry 95 95 12/10/18 04:00 12/10/18 08:00 12/10/18 12:00 Temperature 98.3 F 100.1 F H 100.3 F H Pulse Rate 100 H 99 H 93 H Respiratory Rate 16 18 18 Blood Pressure 122/66 131/61 101/50 L Pulse Oximetry 93 L 92 L 97 Intake & Output 12/09/18 12/10/18 12/10/18 18:59 06:59 18:59 Intake Total 1080 / 1080 600 / 600 Output Total 500 / 500 Balance 1080 / 1080 100 / 100 Weight 108.2 kg Intake: IV 100 / 100 600 / 600 KCl Inj 10 MEQ In NS Inj 1,000 500 / 500 ML @ 100 mls/hr IV.CONT .Q10H3M R[facility]HEL Rx#:[id number] Rocephin Inj 1,000 MG In NS Inj 100 / 100 100 / 100 100 ML @ 200 mls/hr IV.SIG Q12H R[facility]HEL Rx#:[id number] Oral 480 / 480 Other 500 / 500 Output: Urine 500 / 500 Other: # Voids 2 Date of Last Bowel Movement 12/09/18 12/09/18 12/09/18 Narrative: GENERAL: Obese male resting in bed in no acute distress CARDIOVASCULAR: Normal rate and regular rhythm without murmurs, gallops, or rubs. RESPIRATORY: Good respiratory efforts. Breath sounds equal and clear to auscultation bilaterally. GASTROINTESTINAL: Abdomen obese, soft, non-tender, non-distended. MUSCULOSKELETAL: 1+ bilateral non-pitting lower extremity edema. Venous stasis changes. NEURO: Alert & Oriented x4 to person, place, time, situation. Moves all ext x4 PSYCH: Appropriate mood and affect. Results Labs CBC & Chem 7: 12/10/18 08:20 12/10/18 08:20 Labs: Microbiology 12/09/18 19:45 Clean Catch Urine Urine Culture - Preliminary No growth in 24 hours 12/09/18 15:01 Blood - Peripheral Aerobic Blood Culture - Preliminary No growth in 1 day 12/09/18 15:01 Blood - Peripheral Anaerobic Blood Culture - Preliminary No growth in 1 day 12/09/18 14:56 Blood - Peripheral Aerobic Blood Culture - Preliminary No growth in 1 day 12/09/18 14:56 Blood - Peripheral Anaerobic Blood Culture - Preliminary No growth in 1 day Imaging Imaging: Impressions Chest X-Ray 12/09/18 00:00 CONCLUSION: 1. Right sided dual-lumen IJ central venous catheter in place. 2. No evidence of pneumothorax. 3. Mild pulmonary vascular congestion and small bilateral pleural effusions. Procedures Procedures: CT-guided renal biopsy - 12/07/18 Assessment and Plan (1) Acute kidney failure: Code(s): N17.9 - Acute kidney failure, unspecified Status: Acute (2) Acute hepatic encephalopathy: Code(s): K72.00 - Acute and subacute hepatic failure without coma Status: Acute Plan 68-year-old male with metabolic encephalopathy secondary to renal failure and hypoglycemia. Encephalopathy resolved. Patient currently requiring hemodialysis: ACUTE RENAL FAILURE w metabolic acidosis- unclear etiology, pre-renal vs other, us showed no obstruction. Dialysis cont as per nephrology, Renal biopsy performed 12/07, -Continue to monitor for return of renal functions. -Renal functions worse today. Plan for dialysis tomorrow per nephrology. May need outpatient hemodialysis. FEVER -No clear source except for a an abnormal urinalysis. -Patient started on empiric Rocephin. Follow cultures CIRRHOSIS alcoholic - no alcohol for 15 years but is known cirrhotic, hep C+; mcv is elevated, cont thiamine and folate, lactulose SEVERE PROT VERN MALNUTRITION - alb 1.8 nutrition following. Supplements as tolerated. OBESITY - BMI 37.6 nutrition consult CAD hx clinically stable HEPATITIS C s/p interferon treatment w cirrhosis hx THROMBOCYTOPENIA - monitor plts, no bleeding likely due to cirrhosis, fairly stable ANEMIA -macrocytic, continued drop in hh, check occult blood, iron, heme eval. Hypothyroidism borderline elevated, outpt followup, would not start Synthroid now dvt prophylaxis - scd dispo -continue current treatment. Monitor for renal recovery. May need permanent dialysis. Progress Note: Quality VTE Deep Vein Thrombosis/Pulmonary Embolism Present on Admission: No _ (1) Acute kidney failure Qualifiers: Acute renal failure type: unspecified Qualified Code(s): N17.9 - Acute kidney failure, unspecified
--- NOTE | 2018-12-10 17:29 | P.PNNP ---
Subjective Interval history: Patient waiting to get report on his kidney biopsy Physical Exam Vital signs: Vital Signs 12/09/18 20:00 12/10/18 00:00 12/10/18 04:00 Temperature 100.6 F H 98.3 F Pulse Rate 110 H 93 H 100 H Respiratory Rate 16 16 Blood Pressure 101/51 L 122/66 Pulse Oximetry 95 93 L 12/10/18 08:00 12/10/18 12:00 12/10/18 16:00 Temperature 100.1 F H 100.3 F H 99.7 F H Pulse Rate 99 H 93 H 87 Respiratory Rate 18 18 18 Blood Pressure 131/61 101/50 L 110/53 L Pulse Oximetry 92 L 97 96 Intake & Output 12/09/18 12/10/18 12/10/18 18:59 06:59 18:59 Intake Total 1080 / 1080 600 / 600 100 / 100 Output Total 500 / 500 Balance 1080 / 1080 100 / 100 100 / 100 Weight 108.2 kg Intake: IV 100 / 100 600 / 600 100 / 100 KCl Inj 10 MEQ In NS Inj 1,000 500 / 500 ML @ 100 mls/hr IV.CONT .Q10H3M [facility] Rx#:[id number] Rocephin Inj 1,000 MG In NS Inj 100 / 100 100 / 100 100 / 100 100 ML @ 200 mls/hr IV.SIG Q12H [facility]HEL Rx#:[id number] Oral 480 / 480 Other 500 / 500 Output: Urine 500 / 500 Other: # Voids 2 Date of Last Bowel Movement 12/09/18 12/09/18 12/09/18 Narrative: GENERAL: Alert and oriented. SKIN: Warm and dry. Bilateral lower extremities with darkened skin compatible with venous insufficiency NECK: Supple, trachea midline. No JVD CARDIOVASCULAR: Regular rate and rhythm without murmurs, gallops, or rubs. Permacath right chest wall. RESPIRATORY: Breath sounds equal bilaterally. No accessory muscle use. GASTROINTESTINAL: Abdomen soft, non-tender, distended. +BS MUSCULOSKELETAL: No cyanosis, Mild lower extremity edema. BACK: Nontender without obvious deformity. No CVA tenderness. Assessment and Plan - Assessment (1) Acute kidney failure Code(s): N17.9 - Acute kidney failure, unspecified Status: Acute Qualifiers: Acute renal failure type: unspecified Qualified Code(s): N17.9 - Acute kidney failure, unspecified Plan: Patient last dialysis on Tuesday, 3 L removed Started 11/30, permacath placed. According to documentation voided about 550 yesterday. No urine documented for today, states he is voiding No proteinuria seen status/post renal biopsy, 12/07 -Continue to monitor BMP -Monitor volume status, strict I's and O's -Continue hemodialysis per Dr. Lisa as needed Patient to get follow-up with Dr. Lisa and kidney biopsy (2) Acute hepatic encephalopathy Code(s): K72.00 - Acute and subacute hepatic failure without coma Status: Acute Plan: On lactulose.
--- NOTE | 2018-12-11 09:14 | XR ---
EXAM DATE: 12/11/2018 9:04 AM EST AGE/SEX: 68 years / Male INDICATIONS: Fever. CLINICAL DATA: This is the patient's subsequent encounter. Patient reports that signs and symptoms h ave been present for 3 days and indicates a pain score of 0/10. MEDICAL/SURGICAL HISTORY: Cirrhosis. Hypertension. Diabetes mellitus type II. Renal failure. Hep C. Dialysis None. COMPARISON: [facility], CHEST 1V SINGLE AP, 12/09/2018. . FINDINGS: Stable right IJ dialysis catheter. Mild diffuse interstitial prominence with improved aeration at the lung bases. Cardiac silhouette remains enlarged. Remainder of the exam is unchanged. CONCLUSION: 1. Cardiomegaly with mild positive fluid balance. 2. Improved aeration at the lung bases. Electronically signed by: Noé Yao MD Board Certified Radiologist 12/11/2018 9:12 AM EST
[2018-12-11] MEDS: Albumin Human 25% Inj 100 ML IV.SIG PRN ×2 (09:28→09:30)
[2018-12-11] MEDS: Heparin 10,000 UNITS/10 ML Vial (for IV use) OTHER PRN (09:29)
--- NOTE | 2018-12-11 09:57 | P.PNNP ---
Subjective Interval history: Patient seen during HD, alert, not in distress, no SOB. Physical Exam Vital signs: Vital Signs 12/10/18 12:00 12/10/18 16:00 12/10/18 20:00 Temperature 100.3 F H 99.7 F H 101.7 F H Pulse Rate 91 H 86 91 H Respiratory Rate 18 18 16 Blood Pressure 101/50 L 110/53 L Pulse Oximetry 97 96 100 12/10/18 21:30 12/11/18 00:00 12/11/18 01:00 Temperature 100.8 F H 102.0 F H 99.7 F H Pulse Rate 88 Respiratory Rate 16 Blood Pressure 110/41 L Pulse Oximetry 96 12/11/18 04:00 12/11/18 08:00 Temperature 101.4 F H 99.3 F Pulse Rate 96 H 93 H Respiratory Rate 16 18 Blood Pressure 107/55 L 97/48 L Pulse Oximetry 99 92 L Intake & Output 12/10/18 12/11/18 12/11/18 18:59 06:59 18:59 Intake Total 680 / 680 340 / 340 200 / 200 Output Total 100 / 100 Balance 680 / 680 240 / 240 200 / 200 Weight 104 kg Intake: IV 100 / 100 100 / 100 200 / 200 Flexbumin 25% Inj 100 ML @ 60 200 / 200 mls/hr IV.SIG WITH DIALYSIS PRN Rx#:[id number] Rocephin Inj 1,000 MG In NS Inj 100 / 100 100 / 100 100 ML @ 200 mls/hr IV.SIG Q12H RACHEL Rx#:[id number] Oral 480 / 480 240 / 240 Other 100 / 100 Output: Urine 100 / 100 Other: # Voids 3 Date of Last Bowel Movement 12/09/18 # Bowel Movements 1 Narrative: GENERAL: Alert and oriented. SKIN: Warm and dry. Bilateral lower extremities with darkened skin compatible with venous insufficiency NECK: Supple, trachea midline. No JVD CARDIOVASCULAR: Regular rate and rhythm without murmurs, gallops, or rubs. Permacath right chest wall. RESPIRATORY: Breath sounds equal bilaterally. No accessory muscle use. GASTROINTESTINAL: Abdomen soft, non-tender, distended. +BS MUSCULOSKELETAL: No cyanosis, Mild lower extremity edema. BACK: Nontender without obvious deformity. No CVA tenderness. Assessment and Plan - Assessment (1) Acute kidney failure Code(s): N17.9 - Acute kidney failure, unspecified Status: Acute Qualifiers: Acute renal failure type: unspecified Qualified Code(s): N17.9 - Acute kidney failure, unspecified Plan: Patient with advance renal disease, Started on HD. Has elevated BUN and Creatinine. Kidney Biopsy done, called by Pathology, Patient has advance Diabetic renal disease, with advance fibrosis. Most likely has End Stage renal disease. Discuss again with the patient about HD and PD. He live with a room mate in an efficiency, will be difficult to keep supplies for PD. Will start arrangement for AVF and out patient HD. HD now, and remove fluid as tolerated. (2) Acute hepatic encephalopathy Code(s): K72.00 - Acute and subacute hepatic failure without coma Status: Acute Plan: On lactulose.
--- NOTE | 2018-12-11 12:42 | P.PNIM ---
Subjective Interval history: Patient is still having intermittent fevers. He denies dysuria, no cough, no GI symptoms. Physical Exam Vital signs: Vital Signs 12/10/18 16:00 12/10/18 20:00 12/10/18 21:30 Temperature 99.7 F H 101.7 F H 100.8 F H Pulse Rate 86 91 H Respiratory Rate 18 16 Blood Pressure 110/53 L Pulse Oximetry 96 100 12/11/18 00:00 12/11/18 01:00 12/11/18 04:00 Temperature 102.0 F H 99.7 F H 101.4 F H Pulse Rate 88 96 H Respiratory Rate 16 16 Blood Pressure 110/41 L 107/55 L Pulse Oximetry 96 99 12/11/18 08:00 Temperature 99.3 F Pulse Rate 93 H Respiratory Rate 16 Blood Pressure 97/48 L Pulse Oximetry 92 L Intake & Output 12/10/18 12/11/18 12/11/18 18:59 06:59 18:59 Intake Total 680 / 680 340 / 340 200 / 200 Output Total 100 / 100 3000 / 3000 Balance 680 / 680 240 / 240 -2800 / -2800 Weight 104 kg Intake: IV 100 / 100 100 / 100 200 / 200 Flexbumin 25% Inj 100 ML @ 60 200 / 200 mls/hr IV.SIG WITH DIALYSIS PRN Rx#:[id number] Rocephin Inj 1,000 MG In NS Inj 100 / 100 100 / 100 100 ML @ 200 mls/hr IV.SIG Q12H RACHEL Rx#:[id number] Oral 480 / 480 240 / 240 Other 100 / 100 Output: Urine 100 / 100 Hemodialysis Amount 3000 / 3000 Other: # Voids 3 Date of Last Bowel Movement 12/09/18 # Bowel Movements 1 Narrative: GENERAL: Obese male resting in bed in no acute distress CARDIOVASCULAR: Normal rate and regular rhythm without murmurs, gallops, or rubs. RESPIRATORY: Good respiratory efforts. Breath sounds equal and clear to auscultation bilaterally. GASTROINTESTINAL: Abdomen obese, soft, non-tender, non-distended. MUSCULOSKELETAL: 1+ bilateral non-pitting lower extremity edema. Venous stasis changes. NEURO: Alert & Oriented x4 to person, place, time, situation. Moves all ext x4 PSYCH: Appropriate mood and affect. Results Labs CBC & Chem 7: 12/10/18 08:20 12/10/18 08:20 Labs: Microbiology 12/09/18 15:01 Blood - Peripheral Aerobic Blood Culture - Preliminary No growth in 2 days 12/09/18 15:01 Blood - Peripheral Anaerobic Blood Culture - Preliminary No growth in 2 days 12/09/18 14:56 Blood - Peripheral Aerobic Blood Culture - Preliminary No growth in 2 days 12/09/18 14:56 Blood - Peripheral Anaerobic Blood Culture - Preliminary No growth in 2 days 12/09/18 19:45 Clean Catch Urine Urine Culture - Final No growth in 48 hours Imaging Imaging: Impressions Chest X-Ray 12/11/18 00:00 CONCLUSION: 1. Cardiomegaly with mild positive fluid balance. 2. Improved aeration at the lung bases. Procedures Procedures: CT-guided renal biopsy - 12/07/18 Assessment and Plan (1) Acute kidney failure: Code(s): N17.9 - Acute kidney failure, unspecified Status: Acute (2) Acute hepatic encephalopathy: Code(s): K72.00 - Acute and subacute hepatic failure without coma Status: Acute Plan 68-year-old male with metabolic encephalopathy secondary to renal failure and hypoglycemia. Encephalopathy resolved. Patient currently requiring hemodialysis: ACUTE RENAL FAILURE w metabolic acidosis- unclear etiology, pre-renal vs other, us showed no obstruction. Dialysis cont as per nephrology, Renal biopsy performed 12/07, -Continue to monitor for return of renal functions. -Hemodialysis today per nephrology patient will need permanent dialysis. Nephrology arranging for outpatient hemodialysis. Vascular surgery consulted for AV fistula. FEVER -No clear source except for a an abnormal urinalysis. However the urine culture is negative -Obtain blood cultures from the permacath and peripheral. -Continue empiric Rocephin at this time. Follow blood cultures. Continue to monitor for any development of infection. Obtain renal ultrasound. CIRRHOSIS alcoholic - no alcohol for 15 years but is known cirrhotic, hep C+; mcv is elevated, cont thiamine and folate, lactulose SEVERE PROT VERN MALNUTRITION - alb 1.8 nutrition following. Supplements as tolerated. OBESITY - BMI 37.6 nutrition consult CAD hx clinically stable HEPATITIS C s/p interferon treatment w cirrhosis hx THROMBOCYTOPENIA - monitor plts, no bleeding likely due to cirrhosis, fairly stable ANEMIA -macrocytic, continued drop in hh, check occult blood, iron, heme eval. Hypothyroidism borderline elevated, outpt followup, would not start Synthroid now dvt prophylaxis - scd dispo -continue current treatment. Need outpatient dialysis set up. Continue to monitor fever curve. Progress Note: Quality VTE Deep Vein Thrombosis/Pulmonary Embolism Present on Admission: No _ (1) Acute kidney failure Qualifiers: Acute renal failure type: unspecified Qualified Code(s): N17.9 - Acute kidney failure, unspecified
--- NOTE | 2018-12-11 13:35 | P.CONVS ---
History of Present Illness Service: Vascular surgery Consult date: 12/11/18 Primary Care Provider: Annamaria Vidal MD Chief Complaint: End-stage renal disease History of Present Illness: 68-year-old male with a past medical history of hepatitis C and all alcoholic cirrhosis was admitted with acute kidney failure requiring hemodialysis. He currently receives hemodialysis via right internal jugular vein permacath. Vascular surgery is consulted for access placement. Patient is right-handed. He denies any chest pain or shortness of breath. PMF - History History Provided By: Patient - Medical History Medical History: Medical History (Last Reviewed 12/08/18 @ 14:32 by Juan Carlos Brown) Cirrhosis Coronary artery disease Diabetes HTN (hypertension) Hepatitis C - Surgical History Surgical History: Surgical History (Last Reviewed 12/08/18 @ 14:32 by Juan Carlos Brown) Status post hernia repair - Family History Family History: Family History (Last Reviewed 11/27/18 @ 19:24 by SHLOMO Wan) Other Coronary artery disease - Tobacco History Second Hand Smoke Exposure: Yes Tobacco Use In Past 30 Days: Yes Smoking Status: Current every day smoker Tobacco Type: Cigarettes - Alcohol History How Often Do You Have a Drink Containing Alcohol: Never - Substance Use History Substance History: Active Abuse - Substance Use Type Marijuana Status: Active Route Used: Inhalation Frequency: 1/2 gram a day Reason for Use: Calm Down - Travel History Recent Travel in the [place] Within the Last 8 Weeks: No Recent Travel Out of the Country Within the Last 8 Weeks: No - Immunization History Tetanus Immunization: <5 Years Hx Influenza Vaccine This Season: Yes Medications and Allergies Active Medications: Active Medications Albuterol (Duoneb Neb (Prn)) 1 ampul NEB Q4HR NEB PRN PRN Reason: SOB/Wheezing Clonidine HCl (Catapres) 0.1 mg PO UNSCH PRN PRN Reason: SEE LABEL COMMENTS Cyanocobalamin (Vitamin B12) 1,000 mcg PO DAILY [facility] Last Admin: 12/11/18 12:57 Dose: 1,000 mcg Dextrose (D50w Vial) 50 ml IV.PUSH UNSCH PRN PRN Reason: PER HYPOGLYCEMIA PROTOCOL Last Admin: 12/07/18 04:18 Dose: 50 ml Diphenhydramine HCl (Benadryl) 25 mg PO UNSCH PRN PRN Reason: SEE LABEL COMMENTS Epoetin Don (Epogen Inj) 4,000 unit IV.PUSH UNSCH PRN PRN Reason: SEE LABEL COMMENTS Last Admin: 12/11/18 09:28 Dose: 4,000 unit Gelatin (Gelfoam 12 Mm/7 Mm Topical) 1 foam TOPICAL PRN PRN PRN Reason: help stop bleeding from site Gentamicin Sulfate (Gentamicin Inj) 20 mg OTHER WITH DIALYSIS PRN PRN Reason: Dwell Gentamycin Lock Last Admin: 12/11/18 09:29 Dose: 20 mg Heparin Sodium (Porcine) (Heparin Inj) 8,000 units OTHER WITH DIALYSIS PRN PRN Reason: for machine prime Heparin Sodium (Porcine) (Heparin Inj) 1,000 units OTHER WITH DIALYSIS PRN PRN Reason: Dwell Heparin to Fill Catheter Last Admin: 12/11/18 09:29 Dose: 1,000 units Albumin Human (Flexbumin 25% Inj) 100 mls @ 60 mls/hr IV.SIG WITH DIALYSIS PRN PRN Reason: hypotension / volume replace Last Infusion: 12/11/18 09:30 Dose: Infused Sodium Chloride (Ns Inj) 1,000 mls @ 0 mls/hr OTHER .Q0M PRN PRN Reason: for prime and rinse back Sodium Chloride (Ns Inj) 1,000 mls @ 200 mls/hr OTHER .Q5H PRN PRN Reason: for dialyzer flush PRN Sodium Chloride (Ns Inj) 1,000 mls @ 0 mls/hr IV.CONT .Q0M PRN PRN Reason: hypotension / volume replace Ceftriaxone Sodium 1,000 mg/ (Sodium Chloride) 100 mls @ 200 mls/hr IV.SIG Q12H [facility] Last Infusion: 12/11/18 04:45 Dose: Infused Lactulose (Lactulose Liq) 30 ml PO BID [facility] Last Admin: 12/05/18 08:20 Dose: 30 ml Mannitol (Mannitol Inj) 12.5 gm IV.PUSH UNSCH PRN PRN Reason: hypotension / volume replace Multivitamins (Theragran) 1 tab PO DAILY [facility] Last Admin: 12/11/18 12:57 Dose: 1 tab Nitroglycerin (Nitrostat Sl) 0.4 mg SL Q5M PRN PRN Reason: CHEST PAIN Ondansetron HCl (Zofran Inj) 4 mg IV.PUSH Q6H PRN PRN Reason: NAUSEA OR VOMITING Ondansetron HCl (Zofran Inj) 4 mg IV.PUSH UNSCH PRN PRN Reason: NAUSEA OR VOMITING Oxycodone HCl (Roxicodone) 5 mg PO Q6H PRN PRN Reason: PAIN SCALE 6 TO 10 Last Admin: 12/08/18 20:55 Dose: 5 mg Sodium Chloride (Ns Flush) 2 ml IV.FLUSH BID [facility] Last Admin: 12/11/18 12:57 Dose: 2 ml Sodium Chloride (Ns Flush) 2 ml IV.FLUSH PRN PRN PRN Reason: FLUSH AFTER USING IV ACCESS Last Admin: 12/07/18 04:23 Dose: 2 ml Sodium Chloride (Ns Flush) 5 ml IV.FLUSH PRN PRN PRN Reason: flush each lumen during HD Thiamine HCl (Vitamin B1) 100 mg PO BID [facility] Last Admin: 12/11/18 12:57 Dose: 100 mg Allergies Allergy/AdvReac Type Severity Reaction Status Date / Time acetaminophen AdvReac Severe cirrhosis Verified 11/27/18 20:26 Home Medications Medication Instructions Recorded Confirmed Type Unable to Obtain Home Meds 11/27/18 11/27/18 History Physical Exam Vital Signs / I&O: Vital Signs 12/10/18 16:00 12/10/18 20:00 12/10/18 21:30 Temperature 99.7 F H 101.7 F H 100.8 F H Pulse Rate 86 91 H Respiratory Rate 18 16 Blood Pressure 110/53 L Pulse Oximetry 96 100 12/11/18 00:00 12/11/18 01:00 12/11/18 04:00 Temperature 102.0 F H 99.7 F H 101.4 F H Pulse Rate 88 96 H Respiratory Rate 16 16 Blood Pressure 110/41 L 107/55 L Pulse Oximetry 96 99 12/11/18 08:00 Temperature 99.3 F Pulse Rate 93 H Respiratory Rate 16 Blood Pressure 97/48 L Pulse Oximetry 92 L Intake & Output 12/10/18 12/11/18 12/11/18 18:59 06:59 18:59 Intake Total 680 / 680 340 / 340 200 / 200 Output Total 100 / 100 3000 / 3000 Balance 680 / 680 240 / 240 -2800 / -2800 Weight 104 kg Intake: IV 100 / 100 100 / 100 200 / 200 Flexbumin 25% Inj 100 ML @ 60 200 / 200 mls/hr IV.SIG WITH DIALYSIS PRN Rx#:[id number] Rocephin Inj 1,000 MG In NS Inj 100 / 100 100 / 100 100 ML @ 200 mls/hr IV.SIG Q12H [facility] Rx#:[id number] Oral 480 / 480 240 / 240 Other 100 / 100 Output: Urine 100 / 100 Hemodialysis Amount 3000 / 3000 Other: # Voids 3 Date of Last Bowel Movement 12/09/18 # Bowel Movements 1 Neuro: Alert awake oriented x3 HEENT: Normocephalic atraumatic Neck: Supple Heart: S1-S2 Lungs: Clear to auscultation Abdomen: Soft nontender nondistended Vascular: Palpable radial pulses Laboratory Results - last 24 hr 12/11/18 10:44 POC Glucose 93 Microbiology 12/09/18 15:01 Aerobic Blood Culture - Preliminary Blood - Peripheral No growth in 2 days Anaerobic Blood Culture - Preliminary No growth in 2 days 12/09/18 14:56 Aerobic Blood Culture - Preliminary Blood - Peripheral No growth in 2 days Anaerobic Blood Culture - Preliminary No growth in 2 days 12/09/18 19:45 Urine Culture - Final Clean Catch Urine No growth in 48 hours Impressions Chest X-Ray 12/09/18 00:00 CONCLUSION: 1. Right sided dual-lumen IJ central venous catheter in place. 2. No evidence of pneumothorax. 3. Mild pulmonary vascular congestion and small bilateral pleural effusions. Chest X-Ray 12/11/18 00:00 CONCLUSION: 1. Cardiomegaly with mild positive fluid balance. 2. Improved aeration at the lung bases. Assessment and Plan - Assessment (1) Acute kidney failure Code(s): N17.9 - Acute kidney failure, unspecified Status: Acute - Plan Plan AV fistula creation tomorrow. Awaiting vein mapping Thank you for allowing us to participate in this patient care. If you have any questions do not hesitate to call my cell phone. Girma Souza MD [phone] (1) Acute kidney failure Qualifiers: Acute renal failure type: unspecified Qualified Code(s): N17.9 - Acute kidney failure, unspecified
--- NOTE | 2018-12-11 15:24 | US ---
EXAM DATE: 12/11/2018 3:15 PM EST AGE/SEX: 68 years / Male INDICATIONS: Increased BUN/Creatinine. CLINICAL DATA: This is the patient's initial encounter. Patient reports that signs and symptoms have been present for 1 day and indicates a pain score of 2/10. MEDICAL/SURGICAL HISTORY: Hepatitis C. Cirrhosis. Diabetes. CAD. HTN. Renal failure. . Sohail ia repair. COMPARISON: [facility] – [place], [place] BIOPSY RENAL RIGHT, 12/07/2018. . MEASUREMENTS: Right Kidney:__12.9 x 6.2 x 6.1 cm Left Kidney:__13.4 x 5.7 x 6.4 cm FINDINGS: Right Kidney: Increased echogenicity. No mass or hydronephrosis. Left Kidney: Increased echogenicity. No mass or hydronephrosis. Bladder: Decompressed. Not well evaluated. Other: Small amount of ascites around the liver and spleen. The splenorenal shunt appears patent. CONCLUSION: 1. There is increased echogenicity of the renal parenchyma bilaterally suggestive of chronic medical renal disease. 2. No evidence of hydronephrosis. Electronically signed by: Asher Valencia MD Board Certified Radiologist 12/11/2018 3:23 PM EST
--- NOTE | 2018-12-11 15:24 | US ---
EXAM DATE: 12/11/2018 3:16 PM EST AGE/SEX: 68 years / Male INDICATIONS: Pre op AV Fistula. CLINICAL DATA: This is the patient's initial encounter. Patient reports that signs and symptoms have been present for 1 day and indicates a pain score of 0/10. MEDICAL/SURGICAL HISTORY: Hepatitis C. Cirrhosis. Diabetes. HTN. CAD. Renal failure. . Sohail ia repair. COMPARISON: No prior exams available for comparison. FINDINGS: The vessels are compressible and augmentation response is documented. No filling defects a re seen. The flow is phasic with respiration. Other: None. CONCLUSION: 1. No evidence of DVT. Electronically signed by: Asher Valencia MD Board Certified Radiologist 12/11/2018 3:23 PM EST
--- NOTE | 2018-12-11 15:25 | US ---
EXAM DATE: 12/11/2018 3:21 PM EST AGE/SEX: 68 years / Male INDICATIONS: Pre op AV Fistula. CLINICAL DATA: This is the patient's initial encounter. Patient reports that signs and symptoms have been present for 1 day and indicates a pain score of 0/10. MEDICAL/SURGICAL HISTORY: Hepatitis C. Diabetes. Cirrhosis. CAD. HTN. Renal failure. . Sohail ia repair. [place] [facility] [place]11/2018. . MEASUREMENTS: CEPHALIC: Origin:__3 mm Mid-Arm:__2 mm Elbow:__5 mm Forearm:__3 mm Wrist:__Non-visualized BASILIC: Origin:__6 mm Mid-Arm:__4 mm Elbow:__5 mm ARTERIES: Brachial:__5 mm Ulnar:__3 mm Radial:__3 mm VEINS: Radial:__2 mm Ulnar:__2 mm FINDINGS: The venous system of the upper extremity is patent by color Doppler imaging. Measurements of the arm veins (in mm) are listed above. CONCLUSION: 1. Venous mapping as above. Electronically signed by: Asher Valencia MD Board Certified Radiologist 12/11/2018 3:23 PM EST
[2018-12-11 16:19] LABS: Hematocrit 21.6 % (39.0-51.0); Hemoglobin 7.5 gm/dL (13.0-17.0); Mean Corpuscular HGB Conc 34.6 % (32.0-36.0); Mean Corpuscular Hemoglobin 37.8 pg (27.0-34.0); Mean Corpuscular Volume 109.3 fL (80.0-100.0); Mean Platelet Volume 9.7 fL (7.0-11.0); Platelet Count 95 th/mm3 (150-450); Red Blood Count 1.98 mil/mm3 (4.50-5.90); Red Cell Distribution Width 16.8 % (11.6-17.2); White Blood Count 12.3 th/mm3 (4.0-11.0)
[2018-12-11 16:50] LABS: Calcium 7.6 mg/dL (8.5-10.1); Carbon Dioxide 31.7 meq/L (21.0-32.0); Potassium 3.8 meq/L (3.5-5.1)
[2018-12-12 06:06] LABS: Hematocrit 22.1 % (39.0-51.0); Hemoglobin 7.5 gm/dL (13.0-17.0); Mean Corpuscular Hemoglobin 37.2 pg (27.0-34.0); Mean Corpuscular Volume 109.4 fL (80.0-100.0); Mean Platelet Volume 10.2 fL (7.0-11.0); Platelet Count 100 th/mm3 (150-450); Red Blood Count 2.02 mil/mm3 (4.50-5.90); Red Cell Distribution Width 16.6 % (11.6-17.2); White Blood Count 13.6 th/mm3 (4.0-11.0)
[2018-12-12 06:37] LABS: Calcium 7.9 mg/dL (8.5-10.1); Carbon Dioxide 28.4 meq/L (21.0-32.0); Potassium 3.2 meq/L (3.5-5.1)
[2018-12-12] MEDS ORDERED: Heparin 10,000 UNITS/10 ML Vial (for IV use) ONE (10:17)
[2018-12-12] MEDS ORDERED: Heparin/NS PF Inj 500 ML ONE (10:17)
[2018-12-12] MEDS ORDERED: Thrombin Topical Soln 20,000 UNIT Vial TOPICAL ONE (10:17)
[2018-12-12] MEDS ORDERED: Bupivacaine PF 0.5% Inj 10 ML Vial ONE (10:17)
[2018-12-12] MEDS ORDERED: Protamine Sulfate Inj 50 MG/5 ML Vial ONE (10:17)
[2018-12-12] MEDS ORDERED: Gelatin Size 100 Topical Foam ONE (10:20)
--- NOTE | 2018-12-12 10:24 | P.PNVS ---
- Pre-operative Note Planned Procedure: LEFT Upper Extremity Arteriovenous Fistula Interval History: 68-year-old male with a past medical history of hepatitis C and cirrhosis was admitted with acute kidney failure requiring hemodialysis. He currently receives hemodialysis via right internal jugular vein permacath. Labs: WBC 13.6 th/mm3 (4.0-11.0) H 12/12/18 05:15 RBC 2.02 mil/mm3 (4.50-5.90) L 12/12/18 05:15 Hgb 7.5 gm/dL (13.0-17.0) L 12/12/18 05:15 Hct 22.1 % (39.0-51.0) L 12/12/18 05:15 MCV 109.4 fL (80.0-100.0) H 12/12/18 05:15 MCH 37.2 pg (27.0-34.0) H 12/12/18 05:15 MCHC 34.0 % (32.0-36.0) 12/12/18 05:15 RDW 16.6 % (11.6-17.2) 12/12/18 05:15 Plt Count 100 th/mm3 (150-450) L 12/12/18 05:15 MPV 10.2 fL (7.0-11.0) 12/12/18 05:15 INR 1.2 Ratio 11/27/18 17:05 Sodium 138 meq/L (136-145) 12/12/18 05:15 Potassium 3.2 meq/L (3.5-5.1) L 12/12/18 05:15 Chloride 101 meq/L (98-107) 12/12/18 05:15 Carbon Dioxide 28.4 meq/L (21.0-32.0) 12/12/18 05:15 Anion Gap 9 meq/L (5-15) 12/12/18 05:15 BUN 35 mg/dL (7-18) H 12/12/18 05:15 Random Glucose 89 mg/dL (74-106) 12/12/18 05:15 Calcium 7.9 mg/dL (8.5-10.1) L 12/12/18 05:15 Imaging: ITS Impressions Head CT 11/27/18 17:00 CONCLUSION: 1. Negative exam with no evidence of hemorrhage or mass effect. . Abdomen Ultrasound 11/28/18 00:00 CONCLUSION: 1. Cirrhotic liver with splenorenal shunt. 2. Cholelithiasis. 3. Hepatic and pancreatic cysts. Central Venous Line 11/30/18 00:00 CONCLUSION: Uncomplicated PermaCath placement as above. Ankle X-Ray 12/07/18 00:00 CONCLUSION: Negative for fracture or dislocation. Followup in 7-10 days is suggested if symptoms persist. Renal Biopsy CT 12/07/18 00:00 CONCLUSION: 1. Uncomplicated CT guided biopsy. Abdomen/Bladder Ultrasound 12/11/18 00:00 CONCLUSION: 1. There is increased echogenicity of the renal parenchyma bilaterally suggestive of chronic medical renal disease. 2. No evidence of hydronephrosis. Chest X-Ray 12/11/18 00:00 CONCLUSION: 1. Cardiomegaly with mild positive fluid balance. 2. Improved aeration at the lung bases. Upper Extremity Ultrasound 12/11/18 00:00 CONCLUSION: 1. Venous mapping as above. Venous Doppler Study 12/11/18 00:00 CONCLUSION: 1. No evidence of DVT. Operative site marked: Yes Consent: Informed consent has been obtained from Marco A Chavarria. I have explained the procedure in detail and discussed the risks, benefits, and potential complications. All questions have been answered.
[2018-12-12] MEDS ORDERED: Phenylephrine/NS 1000 MCG/10ML Syringe IV.PUSH ONE (10:50)
[2018-12-12] MEDS ORDERED: Lidocaine PF 1% Inj 5 ML Syringe OTHER ONE (10:50)
[2018-12-12] MEDS ORDERED: Glycopyrrolate Inj 1 MG/5 ML Syringe IV.PUSH ONE (10:50)
[2018-12-12] MEDS ORDERED: Succinylcholine Inj 100 MG/5 ML Syringe IV.PUSH ONE (10:50)
[2018-12-12] MEDS ORDERED: Neostigmine Inj 5 MG/5 ML Syringe IV.PUSH ONE (10:50)
--- NOTE | 2018-12-12 12:11 | P.OP ---
Preoperative Diagnosis: Acute renal failure requiring hemodialysis Postoperative Diagnosis: Acute renal failure requiring hemodialysis Date of procedure: 12/12/18 Procedure: 1. Left brachiocephalic AV fistula creation Anesthesia: GETA Surgeon: Girma Souza MD Estimated blood loss (mL): 20 Operation and Findings: Findings 1. The left brachial artery measured approximately 4 mm diameter. The left cephalic vein measured approximately 3 mm in diameter graft 2. Good thrill into the AV fistula and a multiphasic left radial, ulnar signals at the end of the procedure. Operation details The patient was taken to the operating room, laid supine on the OR table. After general trach anesthesia, the patient was prepped and draped in the standard sterile fashion. Timeout was called with all members and you are in agreement. A transverse incision was made in the left antecubital fossa. Dissection was taken down through the subcutaneous tissues electrocautery. The cephalic vein and the brachial artery dissected and encircled Silastic loop. The median nerve identified and protected. The patient was heparinized. The cephalic vein was clamped proximally and ligated and divided distally. Proximal distal control was obtained in the brachial artery. An arteriotomy was created. Anastomosis fashioned using 6-0 Prolene suture between the cephalic vein and the brachial artery. Hemostasis achieved. The wound was closed in multiple layers of Vicryl suture followed by Monocryl suture. Sterile dressing was applied. The patient tolerated the procedure well and was taken to recovery unit in stable condition.
[2018-12-12] MEDS ORDERED: fentaNYL Citrate Inj 100 MCG/2 ML Ampul ONE (12:30)
[2018-12-12] MEDS ORDERED: Chlorhexidine Gluconate 2% 1 Pack (2 Cloths) TOPICAL ONE (14:04)
[2018-12-12] MEDS ORDERED: Metoprolol Tartrate 25 MG Tablet PO ONE (14:04)
[2018-12-12] MEDS ORDERED: Sodium Chlor 0.9% Inj 500 ML IV.SIG SCH (15:00)
--- NOTE | 2018-12-12 15:47 | P.PNNP ---
Subjective Interval history: Sitting up in bed, wanting to be discharged. No shortness of breath, nausea, or vomiting. HD yesterday tolerated well. <Mary Drake - Last Filed: 12/12/18 15:35> Physical Exam Vital signs: Vital Signs 12/11/18 16:00 12/11/18 16:02 12/11/18 20:00 Temperature 100.9 F H 100.2 F H Pulse Rate 97 H 97 H 88 Respiratory Rate 17 20 Blood Pressure 104/50 L 94/50 L Pulse Oximetry 92 L 94 L 12/12/18 00:00 12/12/18 04:00 12/12/18 12:19 Temperature 100.5 F H 98.8 F 98.0 F Pulse Rate 87 90 110 H Respiratory Rate 17 17 20 Blood Pressure 113/55 L 99/48 L 132/61 Pulse Oximetry 98 94 L 94 L 12/12/18 12:30 12/12/18 12:45 Temperature 97.9 F Pulse Rate 104 H 95 H Respiratory Rate 15 16 Blood Pressure 116/56 L 120/58 L Pulse Oximetry 97 95 Intake & Output 12/11/18 12/12/18 12/12/18 18:59 06:59 18:59 Intake Total 660 / 660 100 / 100 Output Total 3100 / 3100 Balance -2440 / -2440 100 / 100 Intake: IV 300 / 300 100 / 100 Flexbumin 25% Inj 100 ML @ 60 200 / 200 mls/hr IV.SIG WITH DIALYSIS PRN Rx#:[id number] Rocephin Inj 1,000 MG In NS Inj 100 / 100 100 / 100 100 ML @ 200 mls/hr IV.SIG Q12H [facility] Rx#:[id number] Oral 360 / 360 Output: Urine 100 / 100 Hemodialysis Amount 3000 / 3000 Other: # Voids 1 # Incontinent Voids 1 Date of Last Bowel Movement 12/11/18 12/12/18 # Bowel Movements 0 # Incontinent Bowel Movements 1 Narrative: GENERAL: Alert and oriented. SKIN: Warm and dry. Bilateral lower extremities with darkened skin compatible with venous insufficiency NECK: Supple, trachea midline. No JVD CARDIOVASCULAR: Regular rate and rhythm without murmurs, gallops, or rubs. Permacath right chest wall. Left arm AVF RESPIRATORY: Breath sounds equal bilaterally. No accessory muscle use. GASTROINTESTINAL: Abdomen soft, non-tender, distended. +BS MUSCULOSKELETAL: No cyanosis, Mild lower extremity edema. BACK: Nontender without obvious deformity. No CVA tenderness. <Mary Drake - Last Filed: 12/12/18 15:35> Vital signs: Vital Signs 12/12/18 00:00 12/12/18 04:00 12/12/18 12:19 Temperature 100.5 F H 98.8 F 98.0 F Pulse Rate 87 90 110 H Respiratory Rate 17 17 20 Blood Pressure 113/55 L 99/48 L 132/61 Pulse Oximetry 98 94 L 94 L 12/12/18 12:30 12/12/18 12:45 12/12/18 16:00 Temperature 97.9 F 97.5 F L Pulse Rate 104 H 95 H 75 Respiratory Rate 15 16 18 Blood Pressure 116/56 L 120/58 L 86/43 L Pulse Oximetry 97 95 98 12/12/18 16:15 12/12/18 21:14 Temperature Pulse Rate Respiratory Rate Blood Pressure 96/40 L 112/59 L Pulse Oximetry Intake & Output 12/12/18 12/12/18 12/13/18 06:59 18:59 06:59 Intake Total 100 / 100 340 / 340 Balance 100 / 100 340 / 340 Intake: IV 100 / 100 100 / 100 Rocephin Inj 1,000 MG In NS Inj 100 / 100 100 / 100 100 ML @ 200 mls/hr IV.SIG Q12H [facility] Rx#:[id number] Oral 240 / 240 Other: # Voids 1 0 # Incontinent Voids 1 Date of Last Bowel Movement 12/11/18 12/12/18 # Bowel Movements 2 # Incontinent Bowel Movements 1 <Albaro Lisa - Last Filed: 12/12/18 22:20> Assessment and Plan - Assessment (1) Acute kidney failure Code(s): N17.9 - Acute kidney failure, unspecified Status: Acute Qualifiers: Acute renal failure type: unspecified Qualified Code(s): N17.9 - Acute kidney failure, unspecified Plan: Patient with advance renal disease, most likely end stage renal disease. 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 Discuss per Dr. Lisa with the patient about HD and PD. He lives with a room mate in an efficiency, will be difficult to keep supplies for PD. Proceeded AVF creation today Hemodialysis yesterday tolerated well with removal fo 3 liters of fluid Continue with HD M/W/F HD tomorrow Outpatient HD being arranged per case management (2) Acute hepatic encephalopathy Code(s): K72.00 - Acute and subacute hepatic failure without coma Status: Acute <Mary Drake - Last Filed: 12/12/18 15:35> - Assessment (1) Acute kidney failure Code(s): N17.9 - Acute kidney failure, unspecified Status: Acute Qualifiers: Acute renal failure type: unspecified Qualified Code(s): N17.9 - Acute kidney failure, unspecified Plan: Patient seen and examined, agree with above. Patient has AVF done. For out patient HD arrangement. HD will be in AM. (2) Acute hepatic encephalopathy Code(s): K72.00 - Acute and subacute hepatic failure without coma Status: Acute <Albaro Lisa - Last Filed: 12/12/18 22:20>
--- NOTE | 2018-12-12 16:58 | P.PNIM ---
Subjective Interval history: Patient continues to have low-grade fever. He has no complaints today. Physical Exam Vital signs: Vital Signs 12/11/18 20:00 12/12/18 00:00 12/12/18 04:00 Temperature 100.2 F H 100.5 F H 98.8 F Pulse Rate 88 87 90 Respiratory Rate 20 17 17 Blood Pressure 94/50 L 113/55 L 99/48 L Pulse Oximetry 94 L 98 94 L 12/12/18 12:19 12/12/18 12:30 12/12/18 12:45 Temperature 98.0 F 97.9 F Pulse Rate 110 H 104 H 95 H Respiratory Rate 20 15 16 Blood Pressure 132/61 116/56 L 120/58 L Pulse Oximetry 94 L 97 95 Intake & Output 12/11/18 12/12/18 12/12/18 18:59 06:59 18:59 Intake Total 660 / 660 100 / 100 Output Total 3100 / 3100 Balance -2440 / -2440 100 / 100 Intake: IV 300 / 300 100 / 100 Flexbumin 25% Inj 100 ML @ 60 200 / 200 mls/hr IV.SIG WITH DIALYSIS PRN Rx#:[id number] Rocephin Inj 1,000 MG In NS Inj 100 / 100 100 / 100 100 ML @ 200 mls/hr IV.SIG Q12H [facility] Rx#:[id number] Oral 360 / 360 Output: Urine 100 / 100 Hemodialysis Amount 3000 / 3000 Other: # Voids 1 # Incontinent Voids 1 Date of Last Bowel Movement 12/11/18 12/12/18 # Bowel Movements 0 # Incontinent Bowel Movements 1 Narrative: GENERAL: Obese male resting in bed in no acute distress CARDIOVASCULAR: Normal rate and regular rhythm without murmurs, gallops, or rubs. RESPIRATORY: Good respiratory efforts. Breath sounds equal and clear to auscultation bilaterally. GASTROINTESTINAL: Abdomen obese, soft, non-tender, non-distended. MUSCULOSKELETAL: 1+ bilateral non-pitting lower extremity edema. Venous stasis changes. NEURO: Alert & Oriented x4 to person, place, time, situation. Moves all ext x4 PSYCH: Appropriate mood and affect. Results Labs CBC & Chem 7: 12/12/18 05:15 12/12/18 05:15 Labs: Microbiology 12/11/18 16:05 Blood - Line Aerobic Blood Culture - Preliminary No growth in 1 day 12/11/18 16:05 Blood - Line Anaerobic Blood Culture - Preliminary No growth in 1 day 12/10/18 23:54 Blood - Peripheral Aerobic Blood Culture - Preliminary No growth in 1 day 12/10/18 23:54 Blood - Peripheral Anaerobic Blood Culture - Preliminary No growth in 1 day 12/10/18 23:59 Blood - Peripheral Aerobic Blood Culture - Preliminary No growth in 1 day 12/10/18 23:59 Blood - Peripheral Anaerobic Blood Culture - Preliminary No growth in 1 day 12/09/18 15:01 Blood - Peripheral Aerobic Blood Culture - Preliminary No growth in 3 days 12/09/18 15:01 Blood - Peripheral Anaerobic Blood Culture - Preliminary No growth in 3 days 12/09/18 14:56 Blood - Peripheral Aerobic Blood Culture - Preliminary No growth in 3 days 12/09/18 14:56 Blood - Peripheral Anaerobic Blood Culture - Preliminary No growth in 3 days Procedures Procedures: CT-guided renal biopsy - 12/07/18 Assessment and Plan (1) Acute kidney failure: Code(s): N17.9 - Acute kidney failure, unspecified Status: Acute (2) Acute hepatic encephalopathy: Code(s): K72.00 - Acute and subacute hepatic failure without coma Status: Acute Plan 68-year-old male with metabolic encephalopathy secondary to renal failure and hypoglycemia. Encephalopathy resolved. Patient currently requiring hemodialysis: ACUTE RENAL FAILURE w metabolic acidosis- unclear etiology, pre-renal vs other, us showed no obstruction. Dialysis cont as per nephrology, Renal biopsy performed 12/07, -Continue to monitor for return of renal functions. -Hemodialysis today per nephrology patient will need permanent dialysis. Nephrology arranging for outpatient hemodialysis. Vascular surgery consulted. Patient to have AV fistula placed today. FEVER -No clear source except for a an abnormal urinalysis. However the urine culture is negative -Blood cultures pending from the permacath and peripheral. -Continue empiric Rocephin at this time. Follow blood cultures. Continue to monitor for any development of infection. Renal ultrasound shows chronic medical disease CIRRHOSIS alcoholic - no alcohol for 15 years but is known cirrhotic, hep C+; mcv is elevated, cont thiamine and folate, lactulose SEVERE PROT VERN MALNUTRITION - alb 1.8 nutrition following. Supplements as tolerated. OBESITY - BMI 37.6 nutrition consult CAD hx clinically stable HEPATITIS C s/p interferon treatment w cirrhosis hx THROMBOCYTOPENIA - monitor plts, no bleeding likely due to cirrhosis, fairly stable ANEMIA -macrocytic, continued drop in hh, check occult blood, iron, heme eval. Hypothyroidism borderline elevated, outpt followup, would not start Synthroid now dvt prophylaxis - scd dispo -continue current treatment. Need outpatient dialysis set up. Continue to monitor fever curve. Progress Note: Quality VTE Deep Vein Thrombosis/Pulmonary Embolism Present on Admission: No _ (1) Acute kidney failure Qualifiers: Acute renal failure type: unspecified Qualified Code(s): N17.9 - Acute kidney failure, unspecified
--- NOTE | 2018-12-12 19:50 | P.CONID ---
History of Present Illness Service: ID Consult date: 12/12/18 Requesting Physician: Keri Dejesus Reason for Consult: fever Primary Care Provider: Annamaria Vidal MD Chief Complaint: End-stage renal disease History of Present Illness: Pt is 68 yo male not a great historian Has h/o DM, Hep C ., liver cirrhosis admitted about 3 weeks ago with hypoglecemia, fever He was found to be in ARF Permacth was placed on 11/30 and he was started on HD He told me that he feels much better than on admission, but cont to have fever , low grade Though today no fever was documented He c/o diarrhea, liquid BMx 1 today WBC 13K today On ROcephin since 12/09 Bl clx negative 5/5 at 1-3 days UA with pyuria of 38, but urine culture negative Review of Systems All other systems reviewed negative except as stated in HPI PMFSH - History History Provided By: Patient - Medical History Medical History: Medical History (Last Reviewed 12/12/18 @ 19:43 by Marie Garcia MD) Cirrhosis Coronary artery disease Diabetes HTN (hypertension) Hepatitis C - Surgical History Surgical History: Surgical History (Last Reviewed 12/12/18 @ 19:43 by Marie Garcia MD) Status post hernia repair - Family History Family History: Family History (Last Reviewed 12/12/18 @ 19:43 by Marie Garcia MD) Other Coronary artery disease - Social History I have reviewed the patient's Social History: Yes - Tobacco History Second Hand Smoke Exposure: Yes Tobacco Use In Past 30 Days: Yes Smoking Status: Current every day smoker Tobacco Type: Cigarettes - Alcohol History How Often Do You Have a Drink Containing Alcohol: Never - Substance Use History Substance History: Active Abuse - Substance Use Type Marijuana Status: Active Route Used: Inhalation Frequency: 1/2 gram a day Reason for Use: Calm Down - Travel History Recent Travel in the [place] Within the Last 8 Weeks: No Recent Travel Out of the Country Within the Last 8 Weeks: No - Immunization History Tetanus Immunization: <5 Years Hx Influenza Vaccine This Season: Yes Medications and Allergies Active Medications: Active Medications Albuterol (Duoneb Neb (Prn)) 1 ampul NEB Q4HR NEB PRN PRN Reason: SOB/Wheezing Clonidine HCl (Catapres) 0.1 mg PO UNSCH PRN PRN Reason: SEE LABEL COMMENTS Cyanocobalamin (Vitamin B12) 1,000 mcg PO DAILY RACHEL Last Admin: 12/12/18 08:33 Dose: 1,000 mcg Dextrose (D50w Vial) 50 ml IV.PUSH UNSCH PRN PRN Reason: PER HYPOGLYCEMIA PROTOCOL Last Admin: 12/07/18 04:18 Dose: 50 ml Diphenhydramine HCl (Benadryl) 25 mg PO UNSCH PRN PRN Reason: SEE LABEL COMMENTS Epoetin Don (Epogen Inj) 4,000 unit IV.PUSH UNSCH PRN PRN Reason: SEE LABEL COMMENTS Last Admin: 12/11/18 09:28 Dose: 4,000 unit Gelatin (Gelfoam 12 Mm/7 Mm Topical) 1 foam TOPICAL PRN PRN PRN Reason: help stop bleeding from site Gentamicin Sulfate (Gentamicin Inj) 20 mg OTHER WITH DIALYSIS PRN PRN Reason: Dwell Gentamycin Lock Last Admin: 12/11/18 09:29 Dose: 20 mg Heparin Sodium (Porcine) (Heparin Inj) 8,000 units OTHER WITH DIALYSIS PRN PRN Reason: for machine prime Heparin Sodium (Porcine) (Heparin Inj) 1,000 units OTHER WITH DIALYSIS PRN PRN Reason: Dwell Heparin to Fill Catheter Last Admin: 12/11/18 09:29 Dose: 1,000 units Albumin Human (Flexbumin 25% Inj) 100 mls @ 60 mls/hr IV.SIG WITH DIALYSIS PRN PRN Reason: hypotension / volume replace Last Infusion: 12/11/18 09:30 Dose: Infused Sodium Chloride (Ns Inj) 1,000 mls @ 0 mls/hr OTHER .Q0M PRN PRN Reason: for prime and rinse back Sodium Chloride (Ns Inj) 1,000 mls @ 200 mls/hr OTHER .Q5H PRN PRN Reason: for dialyzer flush PRN Sodium Chloride (Ns Inj) 1,000 mls @ 0 mls/hr IV.CONT .Q0M PRN PRN Reason: hypotension / volume replace Ceftriaxone Sodium 1,000 mg/ (Sodium Chloride) 100 mls @ 200 mls/hr IV.SIG Q12H RACHEL Last Infusion: 12/12/18 15:20 Dose: Infused Lactated Ringer's (Lr 1000 Ml Inj) 1,000 mls @ 30 mls/hr IV.SIG .Q24H RACHEL Stop: 12/13/18 14:14 Sodium Chloride (Ns Inj) 500 mls @ 30 mls/hr IV.SIG .Q10H [facility] Lactulose (Lactulose Liq) 30 ml PO BID [facility] Last Admin: 12/05/18 08:20 Dose: 30 ml Mannitol (Mannitol Inj) 12.5 gm IV.PUSH UNSCH PRN PRN Reason: hypotension / volume replace Multivitamins (Theragran) 1 tab PO DAILY [facility] Last Admin: 12/12/18 08:33 Dose: 1 tab Nitroglycerin (Nitrostat Sl) 0.4 mg SL Q5M PRN PRN Reason: CHEST PAIN Ondansetron HCl (Zofran Inj) 4 mg IV.PUSH Q6H PRN PRN Reason: NAUSEA OR VOMITING Ondansetron HCl (Zofran Inj) 4 mg IV.PUSH UNSCH PRN PRN Reason: NAUSEA OR VOMITING Oxycodone HCl (Roxicodone) 5 mg PO Q6H PRN PRN Reason: PAIN SCALE 6 TO 10 Last Admin: 12/08/18 20:55 Dose: 5 mg Sodium Chloride (Ns Flush) 2 ml IV.FLUSH BID [facility] Last Admin: 12/12/18 08:33 Dose: 2 ml Sodium Chloride (Ns Flush) 2 ml IV.FLUSH PRN PRN PRN Reason: FLUSH AFTER USING IV ACCESS Last Admin: 12/07/18 04:23 Dose: 2 ml Sodium Chloride (Ns Flush) 5 ml IV.FLUSH PRN PRN PRN Reason: flush each lumen during HD Thiamine HCl (Vitamin B1) 100 mg PO BID [facility] Last Admin: 12/12/18 08:33 Dose: 100 mg Allergies Allergy/AdvReac Type Severity Reaction Status Date / Time acetaminophen AdvReac Severe cirrhosis Verified 11/27/18 20:26 Home Medications Medication Instructions Recorded Confirmed Type Unable to Obtain Home Meds 11/27/18 11/27/18 History Exam Vital signs: Vital Signs 12/11/18 20:00 12/12/18 00:00 12/12/18 04:00 Temperature 100.2 F H 100.5 F H 98.8 F Pulse Rate 88 87 90 Respiratory Rate 20 17 17 Blood Pressure 94/50 L 113/55 L 99/48 L Pulse Oximetry 94 L 98 94 L 12/12/18 12:19 12/12/18 12:30 12/12/18 12:45 Temperature 98.0 F 97.9 F Pulse Rate 110 H 104 H 95 H Respiratory Rate 20 15 16 Blood Pressure 132/61 116/56 L 120/58 L Pulse Oximetry 94 L 97 95 12/12/18 16:00 12/12/18 16:15 Temperature 97.5 F L Pulse Rate 75 Respiratory Rate 18 Blood Pressure 86/43 L 96/40 L Pulse Oximetry 98 Intake & Output 12/12/18 12/12/18 12/13/18 06:59 18:59 06:59 Intake Total 100 / 100 340 / 340 Balance 100 / 100 340 / 340 Intake: IV 100 / 100 100 / 100 Rocephin Inj 1,000 MG In NS Inj 100 / 100 100 / 100 100 ML @ 200 mls/hr IV.SIG Q12H RACHEL Rx#:[id number] Oral 240 / 240 Other: # Voids 1 0 # Incontinent Voids 1 Date of Last Bowel Movement 12/11/18 12/12/18 # Bowel Movements 2 # Incontinent Bowel Movements 1 - Constitutional no acute distress, obese - Routine HEENT Exam Head: Present: normocephalic, atraumatic Eye: Present: EOMI, PERRL, conjunctival icterus (mild) ENT: Present: mucous membranes moist, oropharynx clear. Absent: dentition normal (edentulous) - Routine Neck Exam Present: supple. Absent: JVD, lymphadenopathy - Routine Chest/Breast/Axilla Exam Axillae: Absent: lymphadenopathy Comments: Permacath in place R chest - unremarkable site, not tender - Routine Respiratory Exam Present: decreased breath sounds, CTA bilaterally. Absent: respiratory distress - Routine Cardiovascular Exam Present: RRR, S1, S2. Absent: murmur, gallop, rubs - Routine Abdominal Exam Present: soft, normoactive bowel sounds. Absent: tenderness, distended, organomegaly, mass - Routine Extremities Exam Present: edema (1-2+). Absent: cyanosis, clubbing - Routine Skin Exam Present: jaundice (mild) Comments: hyperpigmenttion of B/l lower legs - Routine Neurological Exam Present: alert, oriented X3, CN II-XII intact. Absent: sensory deficit, motor deficit - Routine Psychiatric Exam Present: normal affect, cooperative Results - Labs CBC & Chem 7: 12/12/18 05:15 12/12/18 05:15 Labs: Laboratory Results - last 24 hr 12/12/18 12/12/18 05:15 05:15 WBC 13.6 H RBC 2.02 L Hgb 7.5 L Hct 22.1 L MCV 109.4 H MCH 37.2 H MCHC 34.0 RDW 16.6 Plt Count 100 L MPV 10.2 Sodium 138 Potassium 3.2 L Chloride 101 Carbon Dioxide 28.4 Anion Gap 9 BUN 35 H Creatinine 4.83 H Estimated GFR 12 L Random Glucose 89 Calcium 7.9 L - Imaging Chest X-Ray 11/27/18 17:00 CONCLUSION: Findings suggest nonconsolidative patchy infiltrates in the left lower lung. Head CT 11/27/18 17:00 CONCLUSION: 1. Negative exam with no evidence of hemorrhage or mass effect. . Venous Doppler Study 11/27/18 17:03 CONCLUSION: 1. The study is negative for bilateral lower extremity deep venous thrombosis. Abdomen Ultrasound 11/28/18 00:00 CONCLUSION: 1. Cirrhotic liver with splenorenal shunt. 2. Cholelithiasis. 3. Hepatic and pancreatic cysts. Central Venous Line 11/30/18 00:00 CONCLUSION: Uncomplicated PermaCath placement as above. Ankle X-Ray 12/07/18 00:00 CONCLUSION: Negative for fracture or dislocation. Followup in 7-10 days is suggested if symptoms persist. Renal Biopsy CT 12/07/18 00:00 CONCLUSION: 1. Uncomplicated CT guided biopsy. Chest X-Ray 12/09/18 00:00 CONCLUSION: 1. Right sided dual-lumen IJ central venous catheter in place. 2. No evidence of pneumothorax. 3. Mild pulmonary vascular congestion and small bilateral pleural effusions. Abdomen/Bladder Ultrasound 12/11/18 00:00 CONCLUSION: 1. There is increased echogenicity of the renal parenchyma bilaterally suggestive of chronic medical renal disease. 2. No evidence of hydronephrosis. Chest X-Ray 12/11/18 00:00 CONCLUSION: 1. Cardiomegaly with mild positive fluid balance. 2. Improved aeration at the lung bases. Upper Extremity Ultrasound 12/11/18 00:00 CONCLUSION: 1. Venous mapping as above. Venous Doppler Study 12/11/18 00:00 CONCLUSION: 1. No evidence of DVT. Assessment and Plan - Plan Liver cirrhosis 2/2 HCV ARF, on HD Permacath placed 12 days ago Fever Diarrhea, abx associated fu blood clx change abx to cefepime, dapto (ASP: would avoid nephrotoxic medx in ARF) chk stool for C.diff will consider non contrast CT A/P if cont to have FUO ariela RN
[2018-12-12] MEDS ORDERED: DAPTOmycin Inj 750 MG in Sodium Chlor 0.9% Inj 100 ML IV.SIG SCH (23:00)
[2018-12-13 08:02] LABS: Baso % (Auto) 0.2 % (0.0-2.0); Eos # (Auto) 0.1 th/mm3 (0.0-0.4); Eos % (Auto) 0.7 % (0.0-4.0); Hematocrit 24.2 % (39.0-51.0); Hemoglobin 8.4 gm/dL (13.0-17.0); Lymph # (Auto) 0.8 th/mm3 (1.0-4.8); Lymph % (Auto) 4.7 % (9.0-44.0); Mean Corpuscular HGB Conc 34.6 % (32.0-36.0); Mean Corpuscular Hemoglobin 38.2 pg (27.0-34.0); Mean Corpuscular Volume 110.5 fL (80.0-100.0); Mean Platelet Volume 10.1 fL (7.0-11.0); Mono # (Auto) 0.9 th/mm3 (0.0-0.9); Mono % (Auto) 5.6 % (0.0-8.0); Neut # (Auto) 14.2 th/mm3 (1.8-7.7); Neut % (Auto) 88.8 % (16.0-70.0); Platelet Count 124 th/mm3 (150-450); Red Blood Count 2.19 mil/mm3 (4.50-5.90); Red Cell Distribution Width 16.8 % (11.6-17.2)
[2018-12-13 08:56] LABS: Alanine Aminotransferase 20 U/L (12-78); Albumin 1.9 g/dL (3.4-5.0); Alkaline Phosphatase 103 U/L (45-117); Anion Gap 10 meq/L (5-15); Aspartate Aminotransferase 31 U/L (15-37); Blood Urea Nitrogen 47 mg/dL (7-18); Calcium 7.5 mg/dL (8.5-10.1); Carbon Dioxide 26.2 meq/L (21.0-32.0); Chloride 101 meq/L (98-107); Glomerular Filtration Rate 9 mL/min (>89); Glucose,Random 126 mg/dL (74-106); Potassium 3.6 meq/L (3.5-5.1); Sodium 137 meq/L (136-145); Total Protein 5.6 g/dL (6.4-8.2)
--- NOTE | 2018-12-13 09:35 | P.PNVS ---
Subjective Post Op Day #: 1 Procedure: Left brachiocephalic AV fistula creation Subjective/Hospital Course: 68/M w/ ESRD on HD Pt s/p Left brachiocephalic AV fistula creation POD 1 Pt doing well this am Pain controlled Pt w/o hand pain R UE incision intact Objective Vital Signs / I&O: Vital Signs 12/12/18 12:19 12/12/18 12:30 12/12/18 12:45 Temperature 98.0 F 97.9 F Pulse Rate 110 H 104 H 95 H Respiratory Rate 20 15 16 Blood Pressure 132/61 116/56 L 120/58 L Pulse Oximetry 94 L 97 95 12/12/18 16:00 12/12/18 16:15 12/12/18 20:00 Temperature 97.5 F L Pulse Rate 75 68 Respiratory Rate 18 Blood Pressure 86/43 L 96/40 L Pulse Oximetry 98 12/12/18 21:14 12/12/18 22:45 12/13/18 00:00 Temperature 97.6 F Pulse Rate 75 66 Respiratory Rate 20 Blood Pressure 112/59 L 97/57 L Pulse Oximetry 98 12/13/18 04:00 12/13/18 05:20 Temperature 97.2 F L Pulse Rate 73 64 Respiratory Rate 20 Blood Pressure 100/59 L Pulse Oximetry 96 Intake & Output 12/12/18 12/13/18 12/13/18 18:59 06:59 18:59 Intake Total 340 / 340 200 / 200 Balance 340 / 340 200 / 200 Weight 107.4 kg Intake: IV 100 / 100 200 / 200 Maxipime Inj 1,000 MG In NS Inj 100 / 100 100 ML @ 200 mls/hr IV.SIG Q24H RACHEL Rx#:[id number] Cubicin Inj 750 MG In NS Inj 100 / 100 100 ML @ 200 mls/hr IV.SIG Q48H RACHEL Rx#:[id number] Rocephin Inj 1,000 MG In NS Inj 100 / 100 100 ML @ 200 mls/hr IV.SIG Q12H RACHEL Rx#:[id number] Oral 240 / 240 Other: # Voids 0 Date of Last Bowel Movement 12/12/18 12/12/18 # Bowel Movements 2 Exam: GENERAL: A&OX3/NAD/GCS15 SKIN: Warm and dry L UE incision intact w/ ecchymosis chandrakant wound No swelling or drainage + palpable radial pulse Laboratory Results - last 24 hr 12/13/18 12/13/18 07:32 07:32 WBC 16.0 H RBC 2.19 L Hgb 8.4 L Hct 24.2 L MCV 110.5 H MCH 38.2 H MCHC 34.6 RDW 16.8 Plt Count 124 L MPV 10.1 Prelim Diff (Auto) Slide review pending Neut % (Auto) 88.8 H Lymph % (Auto) 4.7 L [place] % (Auto) 5.6 Eos % (Auto) 0.7 Baso % (Auto) 0.2 Neut # (Auto) 14.2 H Lymph # (Auto) 0.8 L [place] # (Auto) 0.9 Eos # (Auto) 0.1 Baso # (Auto) 0.0 Differential Comment . Sodium 137 Potassium 3.6 Chloride 101 Carbon Dioxide 26.2 Anion Gap 10 BUN 47 H Creatinine 6.03 H Estimated GFR 9 L Random Glucose 126 H Calcium 7.5 L Total Bilirubin 0.6 AST 31 ALT 20 Alkaline Phosphatase 103 Total Protein 5.6 L Albumin 1.9 L Microbiology 12/11/18 16:05 Aerobic Blood Culture - Preliminary Blood - Line No growth in 1 day Anaerobic Blood Culture - Preliminary No growth in 1 day 12/10/18 23:54 Aerobic Blood Culture - Preliminary Blood - Peripheral No growth in 1 day Anaerobic Blood Culture - Preliminary No growth in 1 day 12/10/18 23:59 Aerobic Blood Culture - Preliminary Blood - Peripheral No growth in 1 day Anaerobic Blood Culture - Preliminary No growth in 1 day 12/09/18 15:01 Aerobic Blood Culture - Preliminary Blood - Peripheral No growth in 3 days Anaerobic Blood Culture - Preliminary No growth in 3 days 12/09/18 14:56 Aerobic Blood Culture - Preliminary Blood - Peripheral No growth in 3 days Anaerobic Blood Culture - Preliminary No growth in 3 days Assessment and Plan - Assessment (1) Acute kidney failure Code(s): N17.9 - Acute kidney failure, unspecified Status: Acute - Plan Pt S/P AV fistula creation POD 1 Doing well No hand pain Incision looks good Plan Discussed post operative care and management w/ pt Pt clear for d/c from a vascular stand point Arranged out pt follow up Erinn Watson NP [facility] [phone] Discharge Planning: clear for d/c (1) Acute kidney failure Qualifiers: Acute renal failure type: unspecified Qualified Code(s): N17.9 - Acute kidney failure, unspecified
--- NOTE | 2018-12-13 09:47 | P.PNIM ---
Subjective Interval history: 68 yo male with alcoholic cirrhosis / hep C admitted with syncope / altered mental status found to be in acute renal failure now receiving dialysis. Has continued stay for fever / increasing WBC count. This morning feels well, no fever for the last 24 hours. No CP/SOB. Physical Exam Vital signs: Vital Signs 12/12/18 12:19 12/12/18 12:30 12/12/18 12:45 Temperature 98.0 F 97.9 F Pulse Rate 110 H 104 H 95 H Respiratory Rate 20 15 16 Blood Pressure 132/61 116/56 L 120/58 L Pulse Oximetry 94 L 97 95 12/12/18 16:00 12/12/18 16:15 12/12/18 20:00 Temperature 97.5 F L Pulse Rate 75 68 Respiratory Rate 18 Blood Pressure 86/43 L 96/40 L Pulse Oximetry 98 12/12/18 21:14 12/12/18 22:45 12/13/18 00:00 Temperature 97.6 F Pulse Rate 75 66 Respiratory Rate 20 Blood Pressure 112/59 L 97/57 L Pulse Oximetry 98 12/13/18 04:00 12/13/18 05:20 Temperature 97.2 F L Pulse Rate 73 64 Respiratory Rate 20 Blood Pressure 100/59 L Pulse Oximetry 96 Intake & Output 12/12/18 12/13/18 12/13/18 18:59 06:59 18:59 Intake Total 340 / 340 200 / 200 Balance 340 / 340 200 / 200 Weight 107.4 kg Intake: IV 100 / 100 200 / 200 Maxipime Inj 1,000 MG In NS Inj 100 / 100 100 ML @ 200 mls/hr IV.SIG Q24H RACHEL Rx#:[id number] Cubicin Inj 750 MG In NS Inj 100 / 100 100 ML @ 200 mls/hr IV.SIG Q48H RACHEL Rx#:[id number] Rocephin Inj 1,000 MG In NS Inj 100 / 100 100 ML @ 200 mls/hr IV.SIG Q12H RACHEL Rx#:[id number] Oral 240 / 240 Other: # Voids 0 Date of Last Bowel Movement 12/12/18 12/12/18 # Bowel Movements 2 Narrative: GENERAL: Obese male resting in bed in no acute distress CARDIOVASCULAR: Normal rate and regular rhythm without murmurs, gallops, or rubs. RESPIRATORY: Good respiratory efforts. Breath sounds equal and clear to auscultation bilaterally. GASTROINTESTINAL: Abdomen obese, soft, non-distended. MUSCULOSKELETAL: 1+ bilateral non-pitting lower extremity edema. Venous stasis changes. NEURO: Moves all ext x4 PSYCH: Appropriate mood and affect. Results - Labs CBC & Chem 7: 12/13/18 07:32 12/13/18 07:32 Laboratory Results - last 24 hr 12/13/18 12/13/18 07:32 07:32 WBC 16.0 H RBC 2.19 L Hgb 8.4 L Hct 24.2 L MCV 110.5 H MCH 38.2 H MCHC 34.6 RDW 16.8 Plt Count 124 L MPV 10.1 Prelim Diff (Auto) Slide review pending Neut % (Auto) 88.8 H Lymph % (Auto) 4.7 L [place] % (Auto) 5.6 Eos % (Auto) 0.7 Baso % (Auto) 0.2 Neut # (Auto) 14.2 H Lymph # (Auto) 0.8 L [place] # (Auto) 0.9 Eos # (Auto) 0.1 Baso # (Auto) 0.0 Differential Comment . Sodium 137 Potassium 3.6 Chloride 101 Carbon Dioxide 26.2 Anion Gap 10 BUN 47 H Creatinine 6.03 H Estimated GFR 9 L Random Glucose 126 H Calcium 7.5 L Total Bilirubin 0.6 AST 31 ALT 20 Alkaline Phosphatase 103 Total Protein 5.6 L Albumin 1.9 L Microbiology 12/11/18 16:05 Blood - Line Aerobic Blood Culture - Preliminary No growth in 1 day 12/11/18 16:05 Blood - Line Anaerobic Blood Culture - Preliminary No growth in 1 day 12/10/18 23:54 Blood - Peripheral Aerobic Blood Culture - Preliminary No growth in 1 day 12/10/18 23:54 Blood - Peripheral Anaerobic Blood Culture - Preliminary No growth in 1 day 12/10/18 23:59 Blood - Peripheral Aerobic Blood Culture - Preliminary No growth in 1 day 12/10/18 23:59 Blood - Peripheral Anaerobic Blood Culture - Preliminary No growth in 1 day 12/09/18 15:01 Blood - Peripheral Aerobic Blood Culture - Preliminary No growth in 3 days 12/09/18 15:01 Blood - Peripheral Anaerobic Blood Culture - Preliminary No growth in 3 days 12/09/18 14:56 Blood - Peripheral Aerobic Blood Culture - Preliminary No growth in 3 days 12/09/18 14:56 Blood - Peripheral Anaerobic Blood Culture - Preliminary No growth in 3 days - Procedures Left brachiocephalic AVF placement - 12/12/18 CT-guided renal biopsy - 12/07/18 Assessment and Plan - Assessment (1) Acute kidney failure Code(s): N17.9 - Acute kidney failure, unspecified Status: Acute (2) Acute hepatic encephalopathy Code(s): K72.00 - Acute and subacute hepatic failure without coma Status: Resolved (3) ESRD (end stage renal disease) on dialysis Code(s): N18.6 - End stage renal disease; Z99.2 - Dependence on renal dialysis Status: Chronic (4) Leukocytosis Code(s): D72.829 - Elevated white blood cell count, unspecified Status: Acute (5) Fever Code(s): R50.9 - Fever, unspecified Status: Resolved - Plan ACUTE ON CHRONIC RENAL FAILURE w metabolic acidosis- 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 * Nephrology consulted, appreciate recs * Continue HD M/W/F * Outpatient dialysis to be arranged, CM assisting LEUKOCYTOSIS AND FEVERS - Increasing leukocytosis w/ neutrophil predominance over last several days, today 16, had been spiking fevers but now afebrile for last 24 hours after antibiotics started yesterday. No source identifiable by history or exam. * ID consulted, appreciate recs * Check C diff PCR * Repeat blood cultures pending * Continue cefepime / daptomycin * Considering CT abd/pelvis if no improvement CIRRHOSIS alcoholic - no alcohol for 15 years but is known cirrhotic, hep C+; mcv is elevated, cont thiamine and folate., lactulose SEVERE PROT VERN MALNUTRITION - alb 1.8 nutrition consult OBESITY - BMI 37.6 nutrition consult CAD hx clinically stable HEPATITIS C s/p interferon treatment w cirrhosis hx THROMBOCYTOPENIA - monitor plts, no bleeding likely due to cirrhosis, fairly stable ANEMIA -macrocytic, continued drop in hh, check occult blood, iron, heme eval. Hypothyroidism borderline elevated, outpt followup, would not start synthroid now dvt prophylaxis - scd dispo - home pending ID clearance and set-up of outpatient dialysis. Needs PCP, [facility] - Attending Attestation The exam, history, and the medical decision-making described in the above note were completed with the assistance of the resident physician. I reviewed and agree with the findings presented. I attest that I had a [id number] encounter with the patient on the same day, and personally performed and documented my assessment and findings in the medical record. Patient reports he is feeling okay today. On exam, no acute distress. Normal S1 and S2. Regular rhythm. Lungs clear to auscultation bilaterally. Patient admitted for acute encephalopathy secondary to renal failure and hypoglycemia. Encephalopathy resolved. He is requiring hemodialysis. Status post renal biopsy. Patient need permanent hemodialysis set up. He is status post AV fistula placement. He has been having fevers and ID is following. He was started on IV antibiotics. Fever seems to have resolved. Continue to monitor cultures. (1) Acute kidney failure Qualifiers: Acute renal failure type: unspecified Qualified Code(s): N17.9 - Acute kidney failure, unspecified (4) Leukocytosis Qualifiers: Leukocytosis type: unspecified Qualified Code(s): D72.829 - Elevated white blood cell count, unspecified
[2018-12-13 10:03] LABS: Lymphocytes 2 % (9-44); Monocytes 1 % (0-8); Ovalocytes 1+; Platelet Morphology Normal (Normal)
[2018-12-13 10:04] LABS: Toxic Granulation 1+
[2018-12-13] MEDS: Heparin 10,000 UNITS/10 ML Vial (for IV use) OTHER PRN (12:16)
--- NOTE | 2018-12-13 16:10 | P.PNNP ---
Subjective Interval history: Seen in AM during hemodialysis. No shortness of breath, chest pain, nausea or vomiting. <Mary Drake - Last Filed: 12/13/18 19:55> Physical Exam Vital signs: Vital Signs 12/12/18 16:15 12/12/18 20:00 12/12/18 21:14 Temperature Pulse Rate 68 Respiratory Rate Blood Pressure 96/40 L 112/59 L Pulse Oximetry 12/12/18 22:45 12/13/18 00:00 12/13/18 04:00 Temperature 97.6 F Pulse Rate 75 66 73 Respiratory Rate 20 Blood Pressure 97/57 L Pulse Oximetry 98 12/13/18 05:20 12/13/18 08:00 Temperature 97.2 F L 97.5 F L Pulse Rate 64 65 Respiratory Rate 20 18 Blood Pressure 100/59 L 96/49 L Pulse Oximetry 96 96 Intake & Output 12/12/18 12/13/18 12/13/18 18:59 06:59 18:59 Intake Total 340 / 340 200 / 200 Output Total 3000 / 3000 Balance 340 / 340 200 / 200 -3000 / -3000 Weight 107.4 kg Intake: IV 100 / 100 200 / 200 Maxipime Inj 1,000 MG In NS Inj 100 / 100 100 ML @ 200 mls/hr IV.SIG Q24H [facility] Rx#:[id number] Cubicin Inj 750 MG In NS Inj 100 / 100 100 ML @ 200 mls/hr IV.SIG Q48H [facility] Rx#:[id number] Rocephin Inj 1,000 MG In NS Inj 100 / 100 100 ML @ 200 mls/hr IV.SIG Q12H [facility] Rx#:[id number] Oral 240 / 240 Output: Hemodialysis Amount 3000 / 3000 Other: # Voids 0 Date of Last Bowel Movement 12/12/18 12/12/18 12/12/18 # Bowel Movements 2 Narrative: GENERAL: Alert and oriented. SKIN: Warm and dry. Bilateral lower extremities with darkened skin compatible with venous insufficiency NECK: Supple, trachea midline. No JVD CARDIOVASCULAR: Regular rate and rhythm without murmurs, gallops, or rubs. Permacath right chest wall. Left arm AVF RESPIRATORY: Breath sounds equal bilaterally. No accessory muscle use. GASTROINTESTINAL: Abdomen soft, non-tender, distended. +BS MUSCULOSKELETAL: No cyanosis, Mild lower extremity edema. BACK: Nontender without obvious deformity. No CVA tenderness. <Mary Drake - Last Filed: 12/13/18 19:55> Vital signs: Vital Signs 12/12/18 22:45 12/13/18 00:00 12/13/18 04:00 Temperature 97.6 F Pulse Rate 75 66 73 Respiratory Rate 20 Blood Pressure 97/57 L Pulse Oximetry 98 12/13/18 05:20 12/13/18 08:00 12/13/18 12:00 Temperature 97.2 F L 97.5 F L Pulse Rate 64 65 69 Respiratory Rate 20 18 Blood Pressure 100/59 L 96/49 L Pulse Oximetry 96 96 12/13/18 16:00 12/13/18 16:05 12/13/18 20:00 Temperature 97.1 F L 97.8 F Pulse Rate 66 65 73 Respiratory Rate 19 16 Blood Pressure 99/54 L 92/51 L Pulse Oximetry 100 97 Intake & Output 12/13/18 12/13/18 12/14/18 06:59 18:59 06:59 Intake Total 200 / 200 0 / 0 Output Total 3000 / 3000 Balance 200 / 200 -3000 / -3000 Weight 107.4 kg Intake: IV 200 / 200 Maxipime Inj 1,000 MG In NS Inj 100 / 100 100 ML @ 200 mls/hr IV.SIG Q24H [facility] Rx#:[id number] Cubicin Inj 750 MG In NS Inj 100 / 100 100 ML @ 200 mls/hr IV.SIG Q48H [facility] Rx#:[id number] Other 0 / 0 Output: Hemodialysis Amount 3000 / 3000 Other: Date of Last Bowel Movement 12/12/18 12/12/18 <Albaro Lisa - Last Filed: 12/13/18 22:28> Assessment and Plan - Assessment (1) Acute kidney failure Code(s): N17.9 - Acute kidney failure, unspecified Status: Acute Qualifiers: Acute renal failure type: unspecified Qualified Code(s): N17.9 - Acute kidney failure, unspecified Plan: Patient with advance renal disease, most likely end stage renal disease. 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 Discuss per Dr. Lisa with the patient about HD and PD. He lives with a room mate in an efficiency, will be difficult to keep supplies for PD. Proceeded with AVF creation 12/12 Hemodialysis today with UF of 3 liters. Outpatient HD at [facility] TTS chair time of 2:45, transportation will need to be arranged. If discharged tomorrow plan will be for HD at [facility] on Tuesday. (2) Acute hepatic encephalopathy Code(s): K72.00 - Acute and subacute hepatic failure without coma Status: Resolved Plan: On lactulose. <Mary Drake - Last Filed: 12/13/18 19:55> - Assessment (1) Acute kidney failure Code(s): N17.9 - Acute kidney failure, unspecified Status: Acute Qualifiers: Acute renal failure type: unspecified Qualified Code(s): N17.9 - Acute kidney failure, unspecified Plan: Patient seen and examined, agree with above. Out Patient HD has been arranged, TTS. Need transportation arrangement. D/W the RN and ask her to call the correctional case manager. (2) Acute hepatic encephalopathy Code(s): K72.00 - Acute and subacute hepatic failure without coma Status: Resolved <Albaro Lisa - Last Filed: 12/13/18 22:28>
[2018-12-14 07:20] LABS: Baso % (Auto) 0.2 % (0.0-2.0); Eos # (Auto) 0.1 th/mm3 (0.0-0.4); Eos % (Auto) 0.5 % (0.0-4.0); Hematocrit 23.9 % (39.0-51.0); Hemoglobin 8.3 gm/dL (13.0-17.0); Lymph # (Auto) 0.8 th/mm3 (1.0-4.8); Lymph % (Auto) 5.2 % (9.0-44.0); Mean Corpuscular HGB Conc 34.6 % (32.0-36.0); Mean Corpuscular Hemoglobin 37.6 pg (27.0-34.0); Mean Corpuscular Volume 108.8 fL (80.0-100.0); Mean Platelet Volume 10.1 fL (7.0-11.0); Mono # (Auto) 1.2 th/mm3 (0.0-0.9); Mono % (Auto) 7.6 % (0.0-8.0); Neut # (Auto) 13.2 th/mm3 (1.8-7.7); Neut % (Auto) 86.5 % (16.0-70.0); Platelet Count 138 th/mm3 (150-450); Red Cell Distribution Width 16.8 % (11.6-17.2); White Blood Count 15.3 th/mm3 (4.0-11.0)
[2018-12-14 07:39] LABS: Calcium 7.8 mg/dL (8.5-10.1); Carbon Dioxide 28.1 meq/L (21.0-32.0); Potassium 3.5 meq/L (3.5-5.1)
[2018-12-14 08:26] VITALS: RESP 18
[2018-12-14 09:09] LABS: Lymphocytes 1 % (9-44); Monocytes 3 % (0-8); Platelet Morphology Normal (Normal)
[2018-12-14 09:10] LABS: Ovalocytes 1+; Toxic Granulation 1+
--- NOTE | 2018-12-14 11:12 | P.PNIM ---
Subjective Interval history: 68 yo male with alcoholic cirrhosis / hep C admitted with syncope / altered mental status found to be in acute renal failure now receiving dialysis. Has continued stay for fever / increasing WBC count. No fever since 12/12 midnight. Feels well. No CP/SOB. No diarrhea today. Physical Exam Vital signs: Vital Signs 12/13/18 12:00 12/13/18 16:00 12/13/18 16:05 Temperature 97.1 F L Pulse Rate 69 66 65 Respiratory Rate 19 Blood Pressure 99/54 L Pulse Oximetry 100 12/13/18 20:00 12/14/18 00:00 12/14/18 04:00 Temperature 97.7 F 98.0 F Pulse Rate 72 76 77 Respiratory Rate 16 16 Blood Pressure 84/43 L 103/51 L Pulse Oximetry 100 96 12/14/18 08:00 Temperature 97.3 F L Pulse Rate 82 Respiratory Rate 18 Blood Pressure 105/52 L Pulse Oximetry 96 Intake & Output 12/13/18 12/14/18 12/14/18 18:59 06:59 18:59 Intake Total 0 / 0 100 / 100 Output Total 3000 / 3000 0 / 0 Balance -3000 / -3000 100 / 100 Weight 104.1 kg Intake: IV 100 / 100 Maxipime Inj 1,000 MG In NS Inj 100 / 100 100 ML @ 200 mls/hr IV.SIG Q24H RACHEL Rx#:[id number] Other 0 / 0 Output: Urine 0 / 0 Hemodialysis Amount 3000 / 3000 Other: Date of Last Bowel Movement 12/12/18 12/13/18 12/13/18 Narrative: GENERAL: Obese male resting in bed in no acute distress CARDIOVASCULAR: Normal rate and regular rhythm without murmurs, gallops, or rubs. RESPIRATORY: Good respiratory efforts. Breath sounds equal and clear to auscultation bilaterally. GASTROINTESTINAL: Abdomen obese, soft, non-distended. MUSCULOSKELETAL: Trace-1+ bilateral non-pitting lower extremity edema. Venous stasis changes. NEURO: Moves all ext x4 PSYCH: Appropriate mood and affect. Results - Labs CBC & Chem 7: 12/14/18 06:21 12/14/18 06:21 Laboratory Results - last 24 hr 12/13/18 12/14/18 12/14/18 13:45 06:21 06:21 WBC 15.3 H RBC 2.20 L Hgb 8.3 L Hct 23.9 L MCV 108.8 H MCH 37.6 H MCHC 34.6 RDW 16.8 Plt Count 138 L MPV 10.1 Prelim Diff (Auto) Slide review pending Neut % (Auto) 86.5 H Lymph % (Auto) 5.2 L Jay % (Auto) 7.6 Eos % (Auto) 0.5 Baso % (Auto) 0.2 Neut # (Auto) 13.2 H Lymph # (Auto) 0.8 L Jay # (Auto) 1.2 H Eos # (Auto) 0.1 Baso # (Auto) 0.0 WBC Differential Manual diff final Seg Neuts % (Manual) 79 H Band Neuts % (Manual) 17 H Lymphocytes % (Manual) 1 L Monocytes % (Manual) 3 Abs Neuts (Manual) 14.7 H Differential Comment . Toxic Granulation 1+ H Platelet Estimate Low L Platelet Morphology Normal Ovalocytes 1+ H Sodium 136 Potassium 3.5 Chloride 99 Carbon Dioxide 28.1 Anion Gap 9 BUN 37 H Creatinine 4.96 H Estimated GFR 12 L Random Glucose 104 Calcium 7.8 L Stool C.difficile Ag Positive H Stool C.difficile Toxin Positive H Stl C.difficile DNA Amp Positive H St C. diff Tox Epid 027 Positive H Microbiology 12/11/18 16:05 Blood - Line Aerobic Blood Culture - Preliminary No growth in 3 days 12/11/18 16:05 Blood - Line Anaerobic Blood Culture - Preliminary No growth in 3 days 12/10/18 23:54 Blood - Peripheral Aerobic Blood Culture - Preliminary No growth in 3 days 12/10/18 23:54 Blood - Peripheral Anaerobic Blood Culture - Preliminary No growth in 3 days 12/10/18 23:59 Blood - Peripheral Aerobic Blood Culture - Preliminary No growth in 3 days 12/10/18 23:59 Blood - Peripheral Anaerobic Blood Culture - Preliminary No growth in 3 days 12/09/18 15:01 Blood - Peripheral Aerobic Blood Culture - Final No growth in 5 days 12/09/18 15:01 Blood - Peripheral Anaerobic Blood Culture - Final No growth in 5 days 12/09/18 14:56 Blood - Peripheral Aerobic Blood Culture - Final No growth in 5 days 12/09/18 14:56 Blood - Peripheral Anaerobic Blood Culture - Final No growth in 5 days - Procedures Left brachiocephalic AVF placement - 12/12/18 CT-guided renal biopsy - 12/07/18 Assessment and Plan - Assessment (1) Acute kidney failure Code(s): N17.9 - Acute kidney failure, unspecified Status: Acute (2) Acute hepatic encephalopathy Code(s): K72.00 - Acute and subacute hepatic failure without coma Status: Resolved (3) ESRD (end stage renal disease) on dialysis Code(s): N18.6 - End stage renal disease; Z99.2 - Dependence on renal dialysis Status: Chronic (4) Leukocytosis Code(s): D72.829 - Elevated white blood cell count, unspecified Status: Acute (5) Fever Code(s): R50.9 - Fever, unspecified Status: Resolved (6) Clostridium difficile infection Code(s): A49.8 - Other bacterial infections of unspecified site Status: Acute - Plan ACUTE ON CHRONIC RENAL FAILURE w metabolic acidosis- 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 * Nephrology consulted, appreciate recs * Continue HD M/W/F * Outpatient dialysis to be arranged, CM assisting LEUKOCYTOSIS AND FEVERS - leukocytosis w/ neutrophil predominance over last several days, today improved slightly, had been spiking fevers but now afebrile for > 24 hrs. Possibly C difficile source given positive confirmatory test. * ID consulted, appreciate recs * Repeat blood cultures pending, NGTD * Continue cefepime / daptomycin * Considering CT abd/pelvis if no improvement * Possibly due to C difficile colitis, will discuss with ID C. difficile infection - Asymptomatic now, WBC improving, will discuss treatment with ID physician CIRRHOSIS alcoholic - no alcohol for 15 years but is known cirrhotic, hep C+; mcv is elevated, cont thiamine and folate., lactulose SEVERE PROT VERN MALNUTRITION - alb 1.8 nutrition consult OBESITY - BMI 37.6 nutrition consult CAD hx clinically stable HEPATITIS C s/p interferon treatment w cirrhosis hx THROMBOCYTOPENIA - monitor plts, no bleeding likely due to cirrhosis, fairly stable ANEMIA -macrocytic, continued drop in hh, check occult blood, iron, heme eval. Hypothyroidism borderline elevated, outpt followup, would not start synthroid now dvt prophylaxis - scd dispo - home pending ID clearance and set-up of outpatient dialysis. Needs PCP, will refer to [facility]. - Attending Attestation The exam, history, and the medical decision-making described in the above note were completed with the assistance of the resident physician. I reviewed and agree with the findings presented. I attest that I had a [id number] encounter with the patient on the same day, and personally performed and documented my assessment and findings in the medical record. Patient reports he is feeling okay today. Eager to go hoome. On exam, no acute distress. Normal S1 and S2. Regular rhythm. Lungs clear to auscultation bilaterally. Patient admitted for acute encephalopathy secondary to renal failure and hypoglycemia. Encephalopathy resolved. He is requiring hemodialysis. Status post renal biopsy. Outpatient dialysis set up. He is status post AV fistula placement. C. difficile is positive. Discussed with ID. Patient can be discharged on oral vancomycin for 14 days. (1) Acute kidney failure Qualifiers: Acute renal failure type: unspecified Qualified Code(s): N17.9 - Acute kidney failure, unspecified (4) Leukocytosis Qualifiers: Leukocytosis type: unspecified Qualified Code(s): D72.829 - Elevated white blood cell count, unspecified
--- NOTE | 2018-12-14 12:24 | P.DS ---
<Melvin Molina S - Last Filed: 12/14/18 12:17> Date of admission: 11/27/18 19:25 Primary care physician: Annamaria Vidal MD Brief History from admission: 68-year-old male with a past medical history significant for hepatitis C status post treatment (patient is unsure of which treatment he completed), diabetes mellitus, coronary artery disease and alcoholic cirrhosis to the emergency department for the evaluation of altered mental status and syncope. According to ED documentation the patient's roommate found him unresponsive this afternoon. EMS was able to arouse the patient was sternal rub and his blood glucose was found to be 33. The patient is a poor historian and cannot provide much history however states that he passed out earlier today and prior to that he "felt sick." He reports he has not had any alcohol for the past 15 years but used to be a very heavy drinker. He also complains of abdominal pain and increasing girth that started yesterday. The chest pain or shortness of breath. No fever/chills. No nausea/vomiting/diarrhea. No focal neurologic deficits. Patient update on day of discharge: Today feels well, no CP/SOB. No fevers for last 24 hours. No diarrhea. DS: Diagnosis - Discharge Diagnosis (1) Acute kidney failure Status: Acute (2) Acute hepatic encephalopathy Status: Resolved (3) ESRD (end stage renal disease) on dialysis Status: Chronic (4) Leukocytosis Status: Acute (5) Fever Status: Resolved (6) Clostridium difficile infection Status: Acute DS: Medications - Discharge Medications Prescriptions: vancomycin 250 mg PO QID 14 Days #56 cap DS: Summary Hospital Course: 68 yo with history of cirrhosis / hep C s/p treatment admitted for altered mental status due to hypoglycemia, ultimately also found to be in renal failure. 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 He currently takes no DM meds, and his A1C was < 7. He had a continued hospital stay due to leukocytosis and fever. Work-up revealed C difficile infection, and his laboratory values and clinical appearance improved with antibiotic therapy. At time of discharge he is to have outpatient dialysis T/T/S schedule, antibiotic therapy for C difficile infection to be determined. - Time Spent with Patient Total time spent providing and/or coordinating discharge services: Less than 30 minutes - Quality: VTE Deep Vein Thrombosis/Pulmonary Embolism Present on Admission: No Exam Vital signs: Vital Signs 12/13/18 16:00 12/13/18 16:05 12/13/18 20:00 Temperature 97.1 F L 97.7 F Pulse Rate 66 65 72 Respiratory Rate 19 16 Blood Pressure 99/54 L 84/43 L Pulse Oximetry 100 100 12/14/18 00:00 12/14/18 04:00 12/14/18 08:00 Temperature 98.0 F 97.3 F L Pulse Rate 76 77 82 Respiratory Rate 16 18 Blood Pressure 103/51 L 105/52 L Pulse Oximetry 96 96 Intake & Output 12/13/18 12/14/18 12/14/18 18:59 06:59 18:59 Intake Total 0 / 0 100 / 100 Output Total 3000 / 3000 0 / 0 Balance -3000 / -3000 100 / 100 Weight 104.1 kg Intake: IV 100 / 100 Maxipime Inj 1,000 MG In NS Inj 100 / 100 100 ML @ 200 mls/hr IV.SIG Q24H [facility] Rx#:[id number] Other 0 / 0 Output: Urine 0 / 0 Hemodialysis Amount 3000 / 3000 Other: Date of Last Bowel Movement 12/12/18 12/13/18 12/13/18 Narrative: GENERAL: Obese male resting in bed in no acute distress CARDIOVASCULAR: Normal rate and regular rhythm without murmurs, gallops, or rubs. RESPIRATORY: Good respiratory efforts. Breath sounds equal and clear to auscultation bilaterally. GASTROINTESTINAL: Abdomen obese, soft, non-distended. MUSCULOSKELETAL: Trace-1+ bilateral non-pitting lower extremity edema. Venous stasis changes. NEURO: Moves all ext x4 PSYCH: Appropriate mood and affect. Results Procedures completed during hospitalization: Left brachiocephalic AVF placement - 12/12/18 CT-guided renal biopsy - 12/07/18 Labs on day of discharge: Labs from last 24 hours 12/14/18 12/14/18 12/13/18 06:21 06:21 13:45 WBC 15.3 H RBC 2.20 L Hgb 8.3 L Hct 23.9 L MCV 108.8 H MCH 37.6 H MCHC 34.6 RDW 16.8 Plt Count 138 L MPV 10.1 Prelim Diff (Auto) Slide review pending Neut % (Auto) 86.5 H Lymph % (Auto) 5.2 L [place] % (Auto) 7.6 Eos % (Auto) 0.5 Baso % (Auto) 0.2 Neut # (Auto) 13.2 H Lymph # (Auto) 0.8 L [place] # (Auto) 1.2 H Eos # (Auto) 0.1 Baso # (Auto) 0.0 WBC Differential Manual diff final Seg Neuts % (Manual) 79 H Band Neuts % (Manual) 17 H Lymphocytes % (Manual) 1 L Monocytes % (Manual) 3 Abs Neuts (Manual) 14.7 H Differential Comment . Toxic Granulation 1+ H Platelet Estimate Low L Platelet Morphology Normal Ovalocytes 1+ H Sodium 136 Potassium 3.5 Chloride 99 Carbon Dioxide 28.1 Anion Gap 9 BUN 37 H Creatinine 4.96 H Estimated GFR 12 L Random Glucose 104 Calcium 7.8 L Stool C.difficile Ag Positive H Stool C.difficile Toxin Positive H Stl C.difficile DNA Amp Positive H St C. diff Tox Epid 027 Positive H Preliminary micro results at discharge 12/11/18 16:05 Aerobic Blood Culture - Preliminary Blood - Line No growth in 3 days Anaerobic Blood Culture - Preliminary No growth in 3 days 12/10/18 23:54 Aerobic Blood Culture - Preliminary Blood - Peripheral No growth in 3 days Anaerobic Blood Culture - Preliminary No growth in 3 days 12/10/18 23:59 Aerobic Blood Culture - Preliminary Blood - Peripheral No growth in 3 days Anaerobic Blood Culture - Preliminary No growth in 3 days - Impressions ITS Impressions Head CT 11/27/18 17:00 CONCLUSION: 1. Negative exam with no evidence of hemorrhage or mass effect. . Abdomen Ultrasound 11/28/18 00:00 CONCLUSION: 1. Cirrhotic liver with splenorenal shunt. 2. Cholelithiasis. 3. Hepatic and pancreatic cysts. Central Venous Line 11/30/18 00:00 CONCLUSION: Uncomplicated PermaCath placement as above. Ankle X-Ray 12/07/18 00:00 CONCLUSION: Negative for fracture or dislocation. Followup in 7-10 days is suggested if symptoms persist. Renal Biopsy CT 12/07/18 00:00 CONCLUSION: 1. Uncomplicated CT guided biopsy. Abdomen/Bladder Ultrasound 12/11/18 00:00 CONCLUSION: 1. There is increased echogenicity of the renal parenchyma bilaterally suggestive of chronic medical renal disease. 2. No evidence of hydronephrosis. Chest X-Ray 12/11/18 00:00 CONCLUSION: 1. Cardiomegaly with mild positive fluid balance. 2. Improved aeration at the lung bases. Upper Extremity Ultrasound 12/11/18 00:00 CONCLUSION: 1. Venous mapping as above. Venous Doppler Study 12/11/18 00:00 CONCLUSION: 1. No evidence of DVT. <Keri Dejesus - Last Filed: 12/14/18 17:03> Date of admission: 11/27/18 19:25 Primary care physician: Annamaria Vidal MD DS: Diagnosis - Discharge Diagnosis (1) Acute kidney failure Status: Acute (2) Acute hepatic encephalopathy Status: Resolved (3) ESRD (end stage renal disease) on dialysis Status: Chronic (4) Leukocytosis Status: Acute (5) Fever Status: Resolved (6) Clostridium difficile infection Status: Acute DS: Summary Hospital Course: The exam, history, and the medical decision-making described in the above note were completed with the assistance of the resident physician. I reviewed and agree with the findings presented. I attest that I had a [id number] encounter with the patient on the same day, and personally performed and documented my assessment and findings in the medical record. Patient reports he is feeling okay today. Eager to go hoome. On exam, no acute distress. Normal S1 and S2. Regular rhythm. Lungs clear to auscultation bilaterally. Patient admitted for acute encephalopathy secondary to renal failure and hypoglycemia. Encephalopathy resolved. He is requiring hemodialysis. Status post renal biopsy. Outpatient dialysis set up. He is status post AV fistula placement. C. difficile is positive. Discussed with ID. Patient can be discharged on oral vancomycin for 14 days. - Time Spent with Patient Total time spent providing and/or coordinating discharge services: Greater than 30 minutes Exam Vital signs: Vital Signs 12/13/18 20:00 12/14/18 00:00 12/14/18 04:00 Temperature 97.7 F 98.0 F Pulse Rate 72 76 77 Respiratory Rate 16 16 Blood Pressure 84/43 L 103/51 L Pulse Oximetry 100 96 12/14/18 08:00 12/14/18 11:45 12/14/18 12:00 Temperature 97.3 F L 97.5 F L Pulse Rate 110 H 80 81 Respiratory Rate 18 18 Blood Pressure 105/52 L 107/55 L Pulse Oximetry 96 98 12/14/18 16:00 Temperature Pulse Rate 80 Respiratory Rate Blood Pressure Pulse Oximetry Intake & Output 12/13/18 12/14/18 12/14/18 18:59 06:59 18:59 Intake Total 0 / 0 100 / 100 Output Total 3000 / 3000 0 / 0 Balance -3000 / -3000 100 / 100 Weight 104.1 kg Intake: IV 100 / 100 Maxipime Inj 1,000 MG In NS Inj 100 / 100 100 ML @ 200 mls/hr IV.SIG Q24H [facility] Rx#:[id number] Other 0 / 0 Output: Urine 0 / 0 Hemodialysis Amount 3000 / 3000 Other: Date of Last Bowel Movement 12/12/18 12/13/18 12/13/18 Results Labs on day of discharge: Labs from last 24 hours 12/14/18 12/14/18 12/13/18 06:21 06:21 13:45 WBC 15.3 H RBC 2.20 L Hgb 8.3 L Hct 23.9 L MCV 108.8 H MCH 37.6 H MCHC 34.6 RDW 16.8 Plt Count 138 L MPV 10.1 Prelim Diff (Auto) Slide review pending Neut % (Auto) 86.5 H Lymph % (Auto) 5.2 L [place] % (Auto) 7.6 Eos % (Auto) 0.5 Baso % (Auto) 0.2 Neut # (Auto) 13.2 H Lymph # (Auto) 0.8 L [place] # (Auto) 1.2 H Eos # (Auto) 0.1 Baso # (Auto) 0.0 WBC Differential Manual diff final Seg Neuts % (Manual) 79 H Band Neuts % (Manual) 17 H Lymphocytes % (Manual) 1 L Monocytes % (Manual) 3 Abs Neuts (Manual) 14.7 H Differential Comment . Toxic Granulation 1+ H Platelet Estimate Low L Platelet Morphology Normal Ovalocytes 1+ H Sodium 136 Potassium 3.5 Chloride 99 Carbon Dioxide 28.1 Anion Gap 9 BUN 37 H Creatinine 4.96 H Estimated GFR 12 L Random Glucose 104 Calcium 7.8 L Stool C.difficile Ag Positive H Stool C.difficile Toxin Positive H Preliminary micro results at discharge 12/11/18 16:05 Aerobic Blood Culture - Preliminary Blood - Line No growth in 3 days Anaerobic Blood Culture - Preliminary No growth in 3 days 12/10/18 23:54 Aerobic Blood Culture - Preliminary Blood - Peripheral No growth in 3 days Anaerobic Blood Culture - Preliminary No growth in 3 days 12/10/18 23:59 Aerobic Blood Culture - Preliminary Blood - Peripheral No growth in 3 days Anaerobic Blood Culture - Preliminary No growth in 3 days - Impressions ITS Impressions Head CT 11/27/18 17:00 CONCLUSION: 1. Negative exam with no evidence of hemorrhage or mass effect. . Abdomen Ultrasound 11/28/18 00:00 CONCLUSION: 1. Cirrhotic liver with splenorenal shunt. 2. Cholelithiasis. 3. Hepatic and pancreatic cysts. Central Venous Line 11/30/18 00:00 CONCLUSION: Uncomplicated PermaCath placement as above. Ankle X-Ray 12/07/18 00:00 CONCLUSION: Negative for fracture or dislocation. Followup in 7-10 days is suggested if symptoms persist. Renal Biopsy CT 12/07/18 00:00 CONCLUSION: 1. Uncomplicated CT guided biopsy. Abdomen/Bladder Ultrasound 12/11/18 00:00 CONCLUSION: 1. There is increased echogenicity of the renal parenchyma bilaterally suggestive of chronic medical renal disease. 2. No evidence of hydronephrosis. Chest X-Ray 12/11/18 00:00 CONCLUSION: 1. Cardiomegaly with mild positive fluid balance. 2. Improved aeration at the lung bases. Upper Extremity Ultrasound 12/11/18 00:00 CONCLUSION: 1. Venous mapping as above. Venous Doppler Study 12/11/18 00:00 CONCLUSION: 1. No evidence of DVT. - Additional Comments The exam, history, and the medical decision-making described in the above note were completed with the assistance of the resident physician. I reviewed and agree with the findings presented. I attest that I had a [id number] encounter with the patient on the same day, and personally performed and documented my assessment and findings in the medical record. Patient reports he is feeling okay today. Eager to go hoome. On exam, no acute distress. Normal S1 and S2. Regular rhythm. Lungs clear to auscultation bilaterally. Patient admitted for acute encephalopathy secondary to renal failure and hypoglycemia. Encephalopathy resolved. He is requiring hemodialysis. Status post renal biopsy. Outpatient dialysis set up. He is status post AV fistula placement. C. difficile is positive. Discussed with ID. Patient can be discharged on oral vancomycin for 14 days. Discharge Plan - Discharge Order Discharge Orders: Discharge Order (Routine); Ordered 12/14/18 Ordered By: Keri Dejesus - Discharge Details Anticipated Discharge Date: 12/14/18 Discharge Comment: OK to DC - Physicians Team Primary Care Provider: Annamaria Vidal Attending Provider: Keri Dejesus Other Providers: Jaya Lake ; Albaro Lisa MD ; Hunter Hansen MD ; Marie Garcia MD
--- NOTE | 2018-12-14 13:26 | P.PNADD ---
Addendum to Inpatient Note Additional information: C.diff 027 + , including toxine + Blood clx remian negativ @ 3 days (repeat) Vanco oral 125-250 mg QID x 14 days dc daptomycin dw cefeime ariela Dejesus
--- NOTE | 2018-12-14 16:24 | P.PNNP ---
Subjective Interval history: Seen in AM plan for discharge home today. Diarrhea has improved. Hemodialysis yesterday tolerated well. <Mary Drake - Last Filed: 12/14/18 16:19> Physical Exam Vital signs: Vital Signs 12/13/18 20:00 12/14/18 00:00 12/14/18 04:00 Temperature 97.7 F 98.0 F Pulse Rate 72 76 77 Respiratory Rate 16 16 Blood Pressure 84/43 L 103/51 L Pulse Oximetry 100 96 12/14/18 08:00 12/14/18 11:45 Temperature 97.3 F L 97.5 F L Pulse Rate 82 80 Respiratory Rate 18 18 Blood Pressure 105/52 L 107/55 L Pulse Oximetry 96 98 Intake & Output 12/13/18 12/14/18 12/14/18 18:59 06:59 18:59 Intake Total 0 / 0 100 / 100 Output Total 3000 / 3000 0 / 0 Balance -3000 / -3000 100 / 100 Weight 104.1 kg Intake: IV 100 / 100 Maxipime Inj 1,000 MG In NS Inj 100 / 100 100 ML @ 200 mls/hr IV.SIG Q24H [facility] Rx#:[id number] Other 0 / 0 Output: Urine 0 / 0 Hemodialysis Amount 3000 / 3000 Other: Date of Last Bowel Movement 12/12/18 12/13/18 12/13/18 Narrative: GENERAL: Obese male resting in bed in no acute distress CARDIOVASCULAR: Normal rate and regular rhythm without murmurs, gallops, or rubs. Permacath and AVF RESPIRATORY: Good respiratory efforts. Breath sounds equal and clear to auscultation bilaterally. GASTROINTESTINAL: Abdomen obese, soft, non-distended. MUSCULOSKELETAL: Trace-1+ bilateral non-pitting lower extremity edema. Venous stasis changes. NEURO: Moves all ext x4 PSYCH: Appropriate mood and affect. <Mary Drake - Last Filed: 12/14/18 16:19> Vital signs: Vital Signs 12/14/18 00:00 12/14/18 04:00 12/14/18 08:00 Temperature 98.0 F 97.3 F L Pulse Rate 76 77 110 H Respiratory Rate 16 18 Blood Pressure 103/51 L 105/52 L Pulse Oximetry 96 96 12/14/18 11:45 12/14/18 12:00 12/14/18 16:00 Temperature 97.5 F L 97.7 F Pulse Rate 80 81 80 Respiratory Rate 18 18 Blood Pressure 107/55 L 108/53 L Pulse Oximetry 98 97 Intake & Output 12/14/18 12/14/18 12/15/18 06:59 18:59 06:59 Intake Total 100 / 100 Output Total 0 / 0 Balance 100 / 100 Weight 104.1 kg Intake: IV 100 / 100 Maxipime Inj 1,000 MG In NS Inj 100 / 100 100 ML @ 200 mls/hr IV.SIG Q24H [facility] Rx#:[id number] Output: Urine 0 / 0 Other: Date of Last Bowel Movement 12/13/18 12/13/18 <Albaro Lisa - Last Filed: 12/14/18 21:35> Assessment and Plan - Assessment (1) Acute kidney failure Code(s): N17.9 - Acute kidney failure, unspecified Status: Acute Qualifiers: Acute renal failure type: unspecified Qualified Code(s): N17.9 - Acute kidney failure, unspecified Plan: Patient with advance renal disease, most likely end stage renal disease. Kidney Biopsy with advance Diabetic renal disease, with advance fibrosis. HD initiated on 11/30, permacath 11/30 Proceeded with AVF creation 12/12 Outpatient HD at [facility] TTS chair time of 2:45, transportation will need to be arranged. If discharged tomorrow HD at [facility] on Tuesday. (2) Acute hepatic encephalopathy Code(s): K72.00 - Acute and subacute hepatic failure without coma Status: Resolved <Mary Drake - Last Filed: 12/14/18 16:19> - Assessment (1) Acute kidney failure Code(s): N17.9 - Acute kidney failure, unspecified Status: Acute Qualifiers: Acute renal failure type: unspecified Qualified Code(s): N17.9 - Acute kidney failure, unspecified Plan: Patient seen and examined, agree with above. Patient for discharge, Continue PO Vanco. as per ID. HD to continue TTS. (2) Acute hepatic encephalopathy Code(s): K72.00 - Acute and subacute hepatic failure without coma Status: Resolved <Albaro Lisa - Last Filed: 12/14/18 21:35>
--- NOTE | 2018-12-14 16:38 | P.PNID ---
Subjective Remarks: C.diff + tox + 027 strain afebrile diarrhea improved no abd pain no other c/o Antibiotics: cefepime, dapto Allergies/Adverse Reactions: Allergies acetaminophen Adverse Reaction (Severe, Verified 11/27/18 20:26) cirrhosis LIVER FUNCTION Objective Vital Signs 12/13/18 20:00 12/14/18 00:00 12/14/18 04:00 Temperature 97.7 F 98.0 F Pulse Rate 72 76 77 Respiratory Rate 16 16 Blood Pressure 84/43 L 103/51 L Pulse Oximetry 100 96 12/14/18 08:00 12/14/18 11:45 Temperature 97.3 F L 97.5 F L Pulse Rate 82 80 Respiratory Rate 18 18 Blood Pressure 105/52 L 107/55 L Pulse Oximetry 96 98 Intake & Output 12/13/18 12/14/18 12/14/18 18:59 06:59 18:59 Intake Total 0 / 0 100 / 100 Output Total 3000 / 3000 0 / 0 Balance -3000 / -3000 100 / 100 Weight 104.1 kg Intake: IV 100 / 100 Maxipime Inj 1,000 MG In NS Inj 100 / 100 100 ML @ 200 mls/hr IV.SIG Q24H [facility] Rx#:[id number] Other 0 / 0 Output: Urine 0 / 0 Hemodialysis Amount 3000 / 3000 Other: Date of Last Bowel Movement 12/12/18 12/13/18 12/13/18 12/11/18 16:05 Blood - Line Aerobic Blood Culture - Preliminary No growth in 3 days 12/11/18 16:05 Blood - Line Anaerobic Blood Culture - Preliminary No growth in 3 days 12/10/18 23:54 Blood - Peripheral Aerobic Blood Culture - Preliminary No growth in 3 days 12/10/18 23:54 Blood - Peripheral Anaerobic Blood Culture - Preliminary No growth in 3 days 12/10/18 23:59 Blood - Peripheral Aerobic Blood Culture - Preliminary No growth in 3 days 12/10/18 23:59 Blood - Peripheral Anaerobic Blood Culture - Preliminary No growth in 3 days 12/09/18 15:01 Blood - Peripheral Aerobic Blood Culture - Final No growth in 5 days 12/09/18 15:01 Blood - Peripheral Anaerobic Blood Culture - Final No growth in 5 days 12/09/18 14:56 Blood - Peripheral Aerobic Blood Culture - Final No growth in 5 days 12/09/18 14:56 Blood - Peripheral Anaerobic Blood Culture - Final No growth in 5 days Lab - Hematology Results 12/13/18 12/14/18 07:32 06:21 WBC 16.0 H 15.3 H RBC 2.19 L 2.20 L Hgb 8.4 L 8.3 L Hct 24.2 L 23.9 L MCV 110.5 H 108.8 H MCH 38.2 H 37.6 H MCHC 34.6 34.6 RDW 16.8 16.8 Plt Count 124 L 138 L MPV 10.1 10.1 Prelim Diff (Auto) Slide review pending Slide review pending Neut % (Auto) 88.8 H 86.5 H Lymph % (Auto) 4.7 L 5.2 L [place] % (Auto) 5.6 7.6 Eos % (Auto) 0.7 0.5 Baso % (Auto) 0.2 0.2 Neut # (Auto) 14.2 H 13.2 H Lymph # (Auto) 0.8 L 0.8 L [place] # (Auto) 0.9 1.2 H Eos # (Auto) 0.1 0.1 Baso # (Auto) 0.0 0.0 WBC Differential Manual diff final Manual diff final Seg Neuts % (Manual) 68 79 H Band Neuts % (Manual) 29 H 17 H Lymphocytes % (Manual) 2 L 1 L Monocytes % (Manual) 1 3 Abs Neuts (Manual) 15.5 H 14.7 H Differential Comment . . Toxic Granulation 1+ H 1+ H Platelet Estimate Low L Low L Platelet Morphology Normal Normal Ovalocytes 1+ H 1+ H Lab - Chemistry Results 12/13/18 12/14/18 07:32 06:21 Sodium 137 136 Potassium 3.6 3.5 Chloride 101 99 Carbon Dioxide 26.2 28.1 Anion Gap 10 9 BUN 47 H 37 H Creatinine 6.03 H 4.96 H Estimated GFR 9 L 12 L Random Glucose 126 H 104 Calcium 7.5 L 7.8 L Total Bilirubin 0.6 AST 31 ALT 20 Alkaline Phosphatase 103 Total Protein 5.6 L Albumin 1.9 L Imaging: ITS Impressions Head CT 11/27/18 17:00 CONCLUSION: 1. Negative exam with no evidence of hemorrhage or mass effect. . Abdomen Ultrasound 11/28/18 00:00 CONCLUSION: 1. Cirrhotic liver with splenorenal shunt. 2. Cholelithiasis. 3. Hepatic and pancreatic cysts. Central Venous Line 11/30/18 00:00 CONCLUSION: Uncomplicated PermaCath placement as above. Ankle X-Ray 12/07/18 00:00 CONCLUSION: Negative for fracture or dislocation. Followup in 7-10 days is suggested if symptoms persist. Renal Biopsy CT 12/07/18 00:00 CONCLUSION: 1. Uncomplicated CT guided biopsy. Abdomen/Bladder Ultrasound 12/11/18 00:00 CONCLUSION: 1. There is increased echogenicity of the renal parenchyma bilaterally suggestive of chronic medical renal disease. 2. No evidence of hydronephrosis. Chest X-Ray 12/11/18 00:00 CONCLUSION: 1. Cardiomegaly with mild positive fluid balance. 2. Improved aeration at the lung bases. Upper Extremity Ultrasound 12/11/18 00:00 CONCLUSION: 1. Venous mapping as above. Venous Doppler Study 12/11/18 00:00 CONCLUSION: 1. No evidence of DVT. Physical Exam: GENERAL: NAD SKIN: Warm and dry. CARDIOVASCULAR: Regular rate and rhythm. RESPIRATORY: No accessory muscle use. Clear to auscultation. Breath sounds equal bilaterally. GASTROINTESTINAL: Abdomen soft, non-tender, nondistended. Hepatic and splenic margins not palpable. MUSCULOSKELETAL: Extremities without clubbing, cyanosis, or edema. No obvious deformities. NEUROLOGICAL: Awake and alert. Non focal Normal speech. PSYCHIATRIC: Appropriate mood and affect; insight and judgment normal. 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 diff 027 +, moderate disease dc cefepime, dapto vanco 125-250 QID x 14 days for C.diff OK to dc home ariela Staton
[2018-12-14 16:49] VITALS: PULSE 80
[2018-12-14 17:41] VITALS: BP 108/53; TEMP 97.7; O2SAT 97
== END 2018-12-14 17:20 | disposition home or self-care (01) | DRG 673 ==
LOC: NEPE 16:38 → NEDA 19:25 → N04 21:39
PROVIDERS: ADMIT Family Medicine; ATTEND Family Medicine
PROC: AVGFTUE (ICD-10-PCS; 2018-12-12 10:50)
DX: D69.6 Thrombocytopenia, unspecified; G93.41 Metabolic encephalopathy; N17.9 Acute kidney failure, unspecified; Z68.37 Body mass index [BMI] 37.0-37.9, adult; A04.72 Enterocolitis due to Clostridium difficile, not specified as recurrent; Z82.49 Family history of ischemic heart disease and other diseases of the circulatory system; K70.40 Alcoholic hepatic failure without coma; K70.31 Alcoholic cirrhosis of liver with ascites; F17.210 Nicotine dependence, cigarettes, uncomplicated; I25.10 Atherosclerotic heart disease of native coronary artery without angina pectoris; E03.9 Hypothyroidism, unspecified; E43 Unspecified severe protein-calorie malnutrition; B19.20 Unspecified viral hepatitis C without hepatic coma; R82.90 Unspecified abnormal findings in urine; N18.6 End stage renal disease; E87.70 Fluid overload, unspecified; E66.9 Obesity, unspecified; E11.649 Type 2 diabetes mellitus with hypoglycemia without coma; J18.9 Pneumonia, unspecified organism; I10 Essential (primary) hypertension; E11.22 Type 2 diabetes mellitus with diabetic chronic kidney disease; D63.8 Anemia in other chronic diseases classified elsewhere; E87.2 Acidosis
CPT/HCPCS: 36558; 50200; 70450; 71010; 71045; 73600; 75998; 76360; 76700; 76775; 76937; 77001; 77012; 80048; 80053; 80069; 80074; 80076; 80307; 81001; 82040; 82140; 82272; 82550; 82570; 82607; 82728; 82746; 82947; 82948; 82962; 83036; 83520; 83540; 83550; 83605; 83735; 83880; 83935; 84300; 84443; 84484; 85014; 85018; 85025; 85027; 85610; 86021; 86038; 86160; 87040; 87086; 87324; 87449; 87493; 88305; 88313; 88342; 88346; 88347; 88348; 88350; 88377; 90765; 90767; 90774; 90775; 90784; 90935; 93005; 93970; 93971; 93998; 94150; 96365; 96367; 96374; 96375; 97116; 97162; 99145; 99152; 99153; 99285; C1750; C1769; C8952; C9124; G0461; J0330; J0456; J0690; J0692; J0696; J0878; J0886; J1100; J1580; J1644; J1720; J2250; J2370; J2405; J2704; J2710; J2720; J3010; J3370; J3480; J7030; J7040; J7050; J7120; P9047; Q4055; Q4081